=== PATIENT | male | born 1945 | race Caucasian/White ===

== ENCOUNTER → 2023-07-29 12:29 | Outpatient (REF) | payer MEDICARE, OTHER, SELFPAY | LOC: RAD 12:29 | PROVIDERS: ATTENDING PHYSICIAN Internal Medicine Gastroenterology; FAMILY PHYSICIAN Family Medicine | DX: K22.2 Esophageal obstruction (principal) | CPT/HCPCS: 71046; 72052; 74018 ==

== ENCOUNTER 2023-08-11 15:20 | Inpatient (IN) | payer MEDICARE, OTHER, SELFPAY ==
[2023-08-11] VITALS (8 sets, daily range): BP systolic 122–177; BP diastolic 56–76; BMI 21.6; BMI 20.6
[2023-08-11 12:20] LABS: % Basophils 0.7 % (0-2); % Eosinophils 1.7 % (0-6); % Immature Granulocytes 0.2 % (0-0.5); % Lymphocytes 9.9 % (20.5-51.1); % Monocytes 11.3 % (1.7-9.3); % Neutrophils 76.2 % (42.2-75.2); Absolute Eosinophils 0.1 10^3/uL (0-0.7); Absolute Lymphocytes 0.6 10^3/uL (1.2-3.4); Absolute Monocytes 0.7 10^3/uL (0.1-0.6); Absolute Neutrophils 4.5 10^3/uL (1.4-6.5); Hematocrit 35.5 % (39.0-52.0); Hemoglobin 12.2 g/dL (13.0-18.0); Mean Corp Hgb Conc. 34.4 g/dL (33.0-37.0); Mean Corpuscular Hgb 29.8 pg (27.0-31.0); Mean Corpuscular Volume 86.8 fL (80.0-94.0); Mean Platelet Volume 11.2 fL (7.4-10.4); Nucleated Red Blood Cells % 0 % (-); Platelet Count 111 10^3/uL (130-400); Red Blood Cell Count 4.09 10^6/uL (4.70-6.10); Red Cell Dist. Width 13.6 % (11.5-14.5); White Blood Cell Count 5.9 10^3/uL (4.8-10.8)
--- NOTE | 2023-08-11 12:20 | ED.GENMED ---
History of Present Illness
General
Chief Complaint: Weakness
Source: patient and family
Time Seen by Provider: 08/11/23 11:38
Travel History
Have you had any contact with someone who has COVID-19?: No
Do you have any symptoms of coronavirus? Fever > 100 degrees, chills, cough, shortness of breath, sore throat, loss of taste or smell, muscle aches, or headache?: No
History of Present Illness
History of Present Illness:
This is 77-year-old male with a history of esophageal cancer with esophagectomy and subsequent stenting who presents with difficulty swallowing. The patient states that he has had progressive difficulty trying to swallow food. He has been trying
to use his J-tube. Denies any difficulty with his saliva. Patient is to have an endoscopy by Dr. Baig tomorrow. He was advised to come to the emergency department.
Past History
Past History
ED Past Medical History: Cancer (Esophageal cancer), HTN, Hypercholesterolemia and Valvular disease (Aortic stenosis)
Phy Exam
Physical Exam
Physical Exam:
CONSTITUTIONAL Patient alert and oriented to person, place and time. Well-appearing. Vital signs reviewed. Mild hoarseness to the voice
HEAD atraumatic, normocephalic.
EYES eyelids normal to inspection, Extraocular muscles intact, Conjunctiva normal, Sclera normal.
NECK normal range of motion, Trachea midline, no jugular venous distention.
RESPIRATORY CHEST No respiratory distress noted, Chest expansion equal, Bilateral breath sounds clear.
CARDIOVASCULAR regular rate and rhythm, subtle systolic ejection murmur
ABDOMEN abdomen nontender, Bowel sounds normal. No distention. Left upper quadrant G-tube noted
BACK normal inspection, no obvious deformities
UPPER EXTREMITY range of motion normal, Motor strength normal, no cyanosis, no edema.
LOWER EXTREMITY range of motion normal, Motor strength normal, no cyanosis, no edema.
NEURO Speech normal, No focal motor deficits, Kajal coma scale 15, Memory normal, Cranial Nerves intact to screening exam.
SKIN skin warm, dry, and normal in color.
\\
Course
Orders/Labs/Results
Orders:
Orders
08/11/23 12:05
Complete Blood Count/With Diff Urgent
Comprehensive Metabolic Panel Urgent
Abnormal Lab Results
08/11/23
12:05
RBC 4.09 L 10^6/uL
(4.70-6.10)
Hgb 12.2 L g/dL
(13.0-18.0)
Hct 35.5 L %
(39.0-52.0)
Plt Count 111 L 10^3/uL
(130-400)
MPV 11.2 H fL
(7.4-10.4)
Absolute Lymphs (auto) 0.6 L 10^3/uL
(1.2-3.4)
Absolute Monos (auto) 0.7 H 10^3/uL
(0.1-0.6)
Neutrophils % 76.2 H %
(42.2-75.2)
Lymphocytes % 9.9 L %
(20.5-51.1)
Monocytes % 11.3 H %
(1.7-9.3)
Sodium 134 L mmol/L
(135-145)
Creatinine 0.5 L mg/dL
(0.7-1.3)
Glucose 113 H mg/dl
(70-99)
Calcium 8.2 L mg/dl
(8.4-10.2)
Total Bilirubin 2.0 H mg/dl
(0.2-1.3)
Total Protein 5.7 L g/dl
(6.3-8.2)
Albumin 3.0 L g/dl
(3.5-5.0)
08/11/23 12:05
08/11/23 12:05
Vital Signs
Initial and Last Documented VS:
Initial Vital Signs
Temp Pulse Resp BP Pulse Ox
97.7 F 67 16 122/72 98
08/11/23 10:59 08/11/23 10:59 08/11/23 10:59 08/11/23 10:59 08/11/23 10:59
Last Documented Vital Signs
Temp Pulse Resp BP Pulse Ox
97.7 F 67 16 122/72 98
08/11/23 10:59 08/11/23 10:59 08/11/23 10:59 08/11/23 10:59 08/11/23 10:59
MDM/Problems Addressed
MDM/Problems Addressed:
Esophageal stricture, dysphagia
*Pulse Oximetry
Patient hypoxic: no
*Critical Care Note
Total Time (30-74mins, 75-104mins- exclusive of procedures): Not Applicable
Data Reviewed
Source: patient and family
Further Testing Considered But Not Given:
Consider CT but patient to have endoscopy tomorrow
Patient Management
Discussion with other providers: Hospitalist and Auto Glass Installer (Case discussed with gastroenterology)
Escalation/DeEscalation of care consider admission/obs:
Case discussed with gastroenterology. Patient to have endoscopy tomorrow to evaluate stent. Admit. Stable
ED Attending Note
-
Portions of this chart may have been created with voice recognition software.� Occasional wrong word or��sound alike� substitutions may have occurred due to the inherent limitations of voice recognition software.
Discharge Plan
Departure
Patient Disposition: Admit
Date of Disposition: 08/11/23
Time of Disposition: 12:21
Admit to: Med/Surg
Presentation/result/management discussed w/ accepting MD/DO: Hospitalist
Discharge Problem:
Dysphagia
Prescriptions:
No Action
cholecalciferol (vitamin D3) 125 MCG tablet,disintegrating
5,000 unit PO DAILY
atorvastatin 80 mg Tablet
80 mg feeding tube QPM Qty: 0 0RF
carvedilol 12.5 mg Tablet
25 mg feeding tube BID Qty: 60 0RF
lansoprazole [Prevacid SoluTab] 30 mg tablet,disintegrat, delay rel
30 mg feeding tube DAILY Qty: 60 0RF
potassium chloride 20 mEq/15 mL liquid
20 meq feeding tube DAILY Qty: 450 0RF
aspirin 81 mg tablet,chewable
81 mg feeding tube DAILY
Xarelto 20 mg tablet
20 mg G-tube DAILY
Hold Instructions: Resume on 03/20/23.
Cholestyramine Powder
4.5 g feeding tube DAILY
Rx Instructions:
for diarrhea
Referrals:
Jackie Trinh MD [Family Provider] -
Interventions
Interventions:
*General Assessment Last Done: 08/11/23 12:09
ED- Fall Risk Assessment Last Done: 08/11/23 11:58
*ED COVID-19 Vaccine History Last Done: 08/11/23 10:59
ED- Cardiac Assessment Last Done: 08/11/23 12:13
ED- Neurological Assessment Last Done: 08/11/23 11:58
ED- Pulmonary Assessment Last Done: 08/11/23 11:58
[2023-08-11 12:33] LABS: ALT (SGPT) 16 U/L (0-50); AST (SGOT) 25 U/L (17-59); Alkaline Phosphatase 104 U/L (38-126); Blood Urea Nitrogen 10 mg/dl (9-20); Calcium 8.2 mg/dl (8.4-10.2); Carbon Dioxide 28 mmol/L (22-30); Chloride 102 mmol/L (98-107); Estimated Creatinine Clearance 110 ml/min; Glucose 113 mg/dl (70-99); Potassium 3.5 mmol/L (3.5-5.1); Sodium 134 mmol/L (135-145); Total Protein 5.7 g/dl (6.3-8.2); eGFR > 60.00
--- NOTE | 2023-08-11 13:49 | CON.GI ---
Consultation
-
Date/Time Consultation Requested: 08/11/23 12:19pm
Date/Time Consultation Performed: 08/11/23 1:50pm
Requesting Provider: Aj Alexis
Performing Provider: Timothy Mcdermott
Reason for Consultation: Dysphagia
Medical History
Chief Complaint / HPI
Chief Complaint: Dysphagia
History of Present Illness:
Patient is a 77-year-old male presenting with dysphagia. He was diagnosed with esophageal cancer last year and underwent chemoradiation followed by surgical resection in November. His postop course was complicated by a leak and development of
stricture which has been dilated by Dr. Baig. Most recently he placed an Axios stent during his last EGD on June 11, 2023. He did well initially for the first month but then over the last week he has had difficulty swallowing food. Even eating
Cheerios and vegetable soup will come back up. At this point he is only tolerating water. He was recommended to come in to have an assessment of the stent and possible removal. He currently has a J-tube which he uses to supplement his nutrition.
He typically takes 2 cans of Jevity in addition to oral intake and Ensure. He has lost about 7 pounds over the last couple weeks. He has had hoarseness over the last 3 weeks. He denies any pain. He had x-rays checked that showed adequate
position of the stent.
Past Medical History
Past Medical History: HTN, Valvular Disease (Aortic stenosis) and Other (TIA, Esophageal adenoCA s/p chemo/XRT and resection)
Past Surgical History: Cardiac (CABG), Orthopedic (R THR) and Other (Esophageal CA resection)
Social History
Tobacco: Non-Smoker
Family History
Family History: Reviewed & Not Pertinent
Allergies / Home Medications
Allergy/AdvReac Type Severity Reaction Status Date / Time
No Known Allergies Allergy Verified 08/11/23 11:03
Medication Instructions Recorded
cholecalciferol (vitamin D3) 125 5,000 unit PO DAILY Supplement 12/15/20
mcg (5,000 unit) disintegrating
tablet
atorvastatin 80 mg tablet 80 mg feeding tube QPM #0 tabs 12/20/22
carvedilol 12.5 mg tablet 25 mg feeding tube BID #60 tabs 12/20/22
lansoprazole 30 mg delayed 30 mg feeding tube DAILY #60 tabs 12/20/22
release,disintegrating tablet
(Prevacid SoluTab)
potassium chloride 20 mEq/15 mL 20 meq (15 mL) feeding tube DAILY 12/20/22
oral liquid #450 mL
aspirin 81 mg chewable tablet 81 mg feeding tube DAILY 03/12/23
rivaroxaban 20 mg tablet (Xarelto) 20 mg G-tube DAILY 03/12/23
Cholestyramine Powder 4.5 g feeding tube DAILY 03/18/23
Review of Systems
-
All other systems: A 12 pt ROS was Negative except as stated above in HPI
Vital Signs
Temp Pulse Resp BP Pulse Ox
97.7 F 53 14 135/68 99
08/11/23 10:59 08/11/23 13:00 08/11/23 13:00 08/11/23 13:00 08/11/23 13:00
Physical Exam
Exam
General: No Apparent Distress
HEENT: Normocephalic and Atraumatic
Respiratory: Non Labored Respirations
GI: Soft, Non Tender and Non Distended
Results
WBC 5.9 10^3/uL (4.8-10.8) 08/11/23 12:05
Hgb 12.2 g/dL (13.0-18.0) L 08/11/23 12:05
Hct 35.5 % (39.0-52.0) L 08/11/23 12:05
MCV 86.8 fL (80.0-94.0) 08/11/23 12:05
Plt Count 111 10^3/uL (130-400) L 08/11/23 12:05
Absolute Neuts (auto) 4.5 10^3/uL (1.4-6.5) 08/11/23 12:05
Sodium 134 mmol/L (135-145) L 08/11/23 12:05
Potassium 3.5 mmol/L (3.5-5.1) 08/11/23 12:05
Chloride 102 mmol/L (98-107) 08/11/23 12:05
Carbon Dioxide 28 mmol/L (22-30) 08/11/23 12:05
BUN 10 mg/dl (9-20) 08/11/23 12:05
Creatinine 0.5 mg/dL (0.7-1.3) L 08/11/23 12:05
Calcium 8.2 mg/dl (8.4-10.2) L 08/11/23 12:05
Total Bilirubin 2.0 mg/dl (0.2-1.3) H 08/11/23 12:05
AST 25 U/L (17-59) 08/11/23 12:05
ALT 16 U/L (0-50) 08/11/23 12:05
Alkaline Phosphatase 104 U/L (38-126) 08/11/23 12:05
Diagnostic Image Results:
Prior GI Procedures:
EGD:
Colonoscopy:
Assessment / Plan
-
Summary: 77yo male presents with dysphagia. Dx'd esophageal adenoCA last year and underwent chemo/XRT followed by resection in November. Post op course complicated by leak and subsequent stricture requiring repeated dilations wtih Dr Baig. Last EGD
06/11/23, Axios stent placed. No problems after procedure until last week- unable to keep down food including Cheerios and vegetable soup. 07/29/23 xrays showed stent to be in adequate position. Now only tolerating water. He uses J tube to
supplement his nutrition, usually 2 cans Jevity via tube with oral intake as tolerated and ensure PO. Lost 7# over last couple weeks.
Impression:
Dysphagia
Esophageal CA s/p chemo/XRT and resection in November 2022
Post op leak and stricture requiring repeated dilation and Axios stent placed 06/11/23
CAD/CABG
Recommendations:
Plan EGD with Dr Baig tomorrow to assess stent and possibly remove
Can use J tube for nutrition while awaiting return of swallowing function.
NPO p MN
-
-
Thank you for consultation and allowing me to participate in the patient's care. Please call the retail sales professional GI physician during the after hours with any questions or concerns.
--- NOTE | 2023-08-11 14:26 | HPS.HSE ---
Family Physician
<EMILIO Liang - Last Filed: 08/11/23 14:59>
-
Family Physician: Jackie Trinh
Chief Complaint
<EMILIO Liang - Last Filed: 08/11/23 14:59>
-
dysphagia
History of Present Illness
77-year-old male with known history of dysphagia secondary to esophageal stenosis prior esophageal cancer 2022 with chemoradiation followed by surgical resection November 2022. He had a stent placed June 11, 2023 was doing well over the past 2
months he had a J-tube placed in November of last year. He reports he was able to eat up until 1 week ago when he started coughing up his food. He reports increased hoarseness over the past 3 weeks with weight loss of 7 pounds despite J-tube feeds
with Jevity 1.5 Anthony twice daily he was sent in by GI for EGD with possible esophageal stenting in the a.m. He has held his Xarelto for the last 2 days with last dose being 08/09/2023 in anticipation of esophageal stent. He denies fever, chills,
chest pain, palpitations, shortness of breath, cough, abdominal pain, nausea, vomiting, diarrhea, urinary symptoms. He has past medical history of HTN, aortic stenosis, TIA, esophageal adenocarcinoma status post chemo XRT and resection November 2022,
CABG, RBBB, paroxysmal A-fib, HLD
Medical History
<EMILIO Liang - Last Filed: 08/11/23 14:59>
Past Medical History
Past Medical History: Reports Other ( esophageal adenocarcinoma status post neoadjuvant chemoradiotherapy, severe aortic stenosis, paroxysmal atrial fibrillation on Xarelto, CAD, hypertension, hyperlipidemia, prediabetes, obesity, TIA in 2008)
Past Surgical History: Reports Other (Esophageal resection secondary to adenocarcinoma November 2022, J-tube November 2022)
Social History
Tobacco: Non-smoker
Alcohol: None
Drug: None
Personal:
Living: With Family ( )
Employment: Retired
Family History
Family History: Not pertinent
Allergies / Home Medications
Allergies reflects when Allergies were last updated in [employer].
Home Medications with original date entered in [employer]
Allergy/Medication List:
Allergies
Allergy/AdvReac Type Severity Reaction Status Date / Time
No Known Allergies Allergy Verified 08/11/23 11:03
Home Medications
carvedilol 12.5 mg tablet 25 mg feeding tube BID #60 tabs 12/20/22
lansoprazole 30 mg delayed release,disintegrating tablet (Prevacid SoluTab) 30 mg feeding tube DAILY #60 tabs 12/20/22
aspirin 81 mg tablet,delayed release 81 mg feeding tube DAILY 08/11/23
atorvastatin 80 mg tablet 80 mg feeding tube HS 08/11/23
cholecalciferol (vitamin D3) 5,000 units G-tube DAILY 08/11/23
cholestyramine (with sugar) 4.5 g G-tube DAILY@1400 08/11/23
potassium chloride 20 mEq oral packet 20 meq feeding tube DAILY 08/11/23
rivaroxaban 20 mg tablet (Xarelto) 20 mg G-tube .SEE BELOW 08/11/23
Review of Systems
<EMILIO Liang - Last Filed: 08/11/23 14:59>
-
History Source: Patient and Family
A 12 point ROS was completed and negative except as noted: Yes
Constitutional: Denies Fever
EENT: Reports Other (Hoarse voice)
Respiratory: Reports Cough; Denies Trouble Breathing
Cardiac: Denies Chest Pain, Diaphoresis, Palpitations or Syncope
Abdomen/GI: Reports Vomiting; Denies Abdominal Pain, Nausea, Diarrhea, Constipated or Bloody Stools
: Denies Dysuria, Frequency, Flank Pain, Incontinence or Difficulty Voiding
Musculoskeletal: Denies Joint Pain or Edema
Skin: Denies Itching or Rash
Neurological: Denies Dizzy, Headache or Weakness
Endocrine: Reports No Symptoms
Hematologic/Lymphatic: Reports No Symptoms
Psych: Reports Calm
Physical Exam
<EMILIO Liang - Last Filed: 08/11/23 14:59>
Vital Signs
Vital Signs
Temp Pulse Resp BP Pulse Ox
97.7 F 53 14 135/68 99
08/11/23 10:59 08/11/23 13:00 08/11/23 13:00 08/11/23 13:00 08/11/23 13:00
Physical Exam
General: Comfortable and Conversant
HEENT: NormoCephalic, Anicteric, [place] Conjunctivae and No Ptosis
Respiratory: Clear; No Wheezes, Rales or Rhonchi
Cardiac: S1/S2, Regular Rhythm and Murmur (2/6 systolic); No Rub, Gallop or Peripheral Edema
GI: Soft, Non Tender, Non Distended and Normal Bowel Sounds
Rectal: Deferred by Provider
Genito-urinary: Deferred by me
Musculoskeletal: No Clubbing, No Cyanosis and No Edema
Skin: Warm and Dry; No Rash
Neuro: AO x 3 (Chronic hoarse voice), Nonfocal/grossly intact and No Sensory Deficits; No Slurred Speech, Facial Droop or Tremors
Psych: Calm
Laboratory Results
<EMILIO Liang - Last Filed: 08/11/23 14:59>
-
08/11/23 12:05
08/11/23 12:05
Laboratory Results
Total Bilirubin 2.0 mg/dl (0.2-1.3) H 08/11/23 12:05
AST 25 U/L (17-59) 08/11/23 12:05
ALT 16 U/L (0-50) 08/11/23 12:05
Alkaline Phosphatase 104 U/L (38-126) 08/11/23 12:05
Data Reviewed
<EMILIO Liang - Last Filed: 08/11/23 14:59>
-
Lab Data: Labs Reviewed by me
Impression/Plan
<EMILIO Liang - Last Filed: 08/11/23 14:59>
-
Impression/plan:
Admit to MedSurg
#Acute on chronic dysphagia secondary to esophageal stenosis
#Adenocarcinoma esophageal with chemo and XRT November 2022
# s/p J-tube
-Plan for EGD in a.m.
-N.p.o. after midnight
-Uses 2 cans of Jevity daily
-Consult dietary
EGD 06/11/2023: Benign-appearing esophageal stenosis with stent placement
#Paroxysmal A-fib
-Patient held Xarelto since 08/09/2023 in anticipation of EGD tomorrow 08/12/2023
-Will need to resume Xarelto once okay by GI
#HTN-benign
135/63
-Continue carvedilol 25 mg twice daily via G-tube
#TIA
-Continue statin 80 mg via G-tube at bedtime, carvedilol 25 mg twice daily via G-tube,, aspirin 81 mg daily via G-tube
#GERD
-Continue Prevacid SoluTab 30 mg via G-tube
#RBBB
#CAD/CABG
-Continue beta-brennan, statin, aspirin
#HLD
-Continue statin via G-tube
#Aortic stenosis
DVT prophylaxis
Xarelto has been held since 08/09/2023 due to procedure tomorrow 08/12/2023
SCDs
Full code
<Rodger Reyes MD - Last Filed: 08/11/23 15:12>
-
Impression/plan:
Patient seen and examined with CORPORATE TECHNICAL RECRUITER. Agree with findings on history and physical exam. I agree with the assesment below.
He is a 77 y.o male with past medical hx of esophageal ca s/p resection and reanastomosis with chemo and XRT November 2022 who developed benign appearing esophageal stenosis soon after s/p stenting in May 2023 who has now developed worsening
dysphagia. Reports regurgitation of all but thin liquids. Denies any chest pain or tightness. No vomiting. Denies globus sensation. Does tolerate feeds with Jevity via J-tube. Saw GI recently with recommendation for repeat EGD for which he
came. Labs are unremarkable.
Admit to MedSurg
#Acute on chronic dysphagia secondary to esophageal stenosis
#Adenocarcinoma esophageal with chemo and XRT November 2022
# s/p J-tube
-Plan for EGD in a.m.
-N.p.o. after midnight
-Uses 2 cans of Jevity daily
-Consult dietary
EGD 06/11/2023: Benign-appearing esophageal stenosis with stent placement
#Paroxysmal A-fib
-Patient held Xarelto since 08/09/2023 in anticipation of EGD tomorrow 08/12/2023
-Will need to resume Xarelto once okay by GI
#HTN-benign
135/63
-Continue carvedilol 25 mg twice daily via G-tube
#TIA
-Continue statin 80 mg via G-tube at bedtime, carvedilol 25 mg twice daily via G-tube,, aspirin 81 mg daily via G-tube
#GERD
-Continue Prevacid SoluTab 30 mg via G-tube
#RBBB
#CAD/CABG
-Continue beta-brennan, statin, aspirin
#HLD
-Continue statin via G-tube
#Aortic stenosis
DVT prophylaxis
Xarelto has been held since 08/09/2023 due to procedure tomorrow 08/12/2023
SCDs
Full code
[2023-08-11] MEDS: LIPITOR 80 MG TUBE (21:14)
[2023-08-11] MEDS: COREG TUBE (21:18)
[2023-08-11] MEDS: NSS 1000 IV (23:29)
[2023-08-12] VITALS (7 sets, daily range): BP systolic 124–169; BP diastolic 59–73; BMI 20.9
[2023-08-12] MEDS: COREG TUBE (08:40)
--- NOTE | 2023-08-12 08:54 | W.PN.HOSP.TC ---
Today's Communication/Plan
-
Presume discharge later today after EGD
Resumption of Xarelto then or as per GI within 24 hours
Already knows dietary does restrictions from prior
Assessment / Plan
Assessment / Plan
77-year-old male with known history of dysphagia secondary to esophageal stenosis prior esophageal cancer 2022 with chemoradiation followed by surgical resection November 2022.� He had a stent placed June 11, 2023 was doing well over the past 2
months he had a J-tube placed in November of last year.� He reports he was able to eat up until 1 week ago when he started coughing up his food.� He reports increased hoarseness over the past 3 weeks with weight loss of 7 pounds despite J-tube feeds
with Jevity 1.5 Anthony twice daily he was sent in by GI for EGD with possible esophageal stenting in the a.m.� He has held his Xarelto for the last 2 days with last dose being 08/09/2023 in anticipation of esophageal stent.� He denies fever, chills,
chest pain, palpitations, shortness of breath, cough, abdominal pain, nausea, vomiting, diarrhea, urinary symptoms.� He has past medical history of HTN, aortic stenosis, TIA, esophageal adenocarcinoma status post chemo XRT and resection November 2022,
CABG, RBBB, paroxysmal A-fib, HLD
Admit to MedSurg
#Acute on chronic dysphagia secondary to esophageal stenosis
#Adenocarcinoma esophageal with chemo and XRT November 2022
# s/p J-tube
-Plan for EGD this p.m.
-N.p.o. after midnight
-Uses 2 cans of Jevity daily
-Consult dietary
�� � EGD 06/11/2023: Benign-appearing esophageal stenosis with stent placement
#Paroxysmal A-fib
-Patient held Xarelto since 08/09/2023 in anticipation of EGD tomorrow 08/12/2023
-Will need to resume Xarelto once okay by GI
#HTN-benign
135/63
-Continue carvedilol 25 mg twice daily via G-tube
#TIA
-Continue statin 80 mg via G-tube at bedtime, carvedilol 25 mg twice daily via G-tube,, aspirin 81 mg daily via G-tube
#GERD
-Continue Prevacid SoluTab 30 mg via G-tube
#RBBB
#CAD/CABG
-Continue beta-brennan, statin, aspirin
#HLD
-Continue statin via G-tube
#Aortic stenosis
DVT prophylaxis
Xarelto has been held since 08/09/2023 due to procedure tomorrow 08/12/2023
SCDs
Full code
Anticipated Discharge: Today (Presumably can be discharged after EGD and removal of stent/dilatation?)
Subjective/Interval History
-
Date of Service: August 12, 2023
Doing okay overnight has been n.p.o. since midnight.
Objective Data
-
Labs:
Laboratory Results
08/12/23
08:51
WBC Pending
Hgb Pending
Hct Pending
Plt Count Pending
Sodium Pending
Potassium Pending
Chloride Pending
Carbon Dioxide Pending
BUN Pending
Creatinine Pending
Glucose Pending
Calcium Pending
Vital Signs:
Vital Signs
Temp Pulse Resp BP Pulse Ox
97.6 F 56 18 141/68 95
08/12/23 07:30 08/12/23 07:30 08/12/23 07:30 08/12/23 07:30 08/12/23 07:30
I&O
08/11/23 08/12/23 08/13/23
06:59 06:59 06:59
Intake Total 800 / 800
Balance 800 / 800
Review of Systems
-
History Source: Patient
All other systems: Reviewed and negative
Constitutional: Reports Weight Loss (7 pounds last several month)
EENT: Reports No Symptoms Reported
Respiratory: Reports No Symptoms
Cardiac: Reports No Symptoms
Abdomen/GI: Reports No Symptoms
Physical Exam
-
General: No Apparent Distress and Appears Chronically Ill
HEENT: Normocephalic
Respiratory: Clear to Auscultation
Cardiac: Regular Rhythm
GI: Soft, Nontender and Nondistended
Skin: Warm
Neuro: Awake, Alert, Oriented, AO x 3 and No Motor Deficits
Data Reviewed
-
Total Time Spent with Patient (in minutes): 45
Labs: Labs Reviewed by me
[2023-08-12 09:31] LABS: % Basophils 0.6 % (0-2); % Eosinophils 2.5 % (0-6); % Immature Granulocytes 0.4 % (0-0.5); % Lymphocytes 10.6 % (20.5-51.1); % Monocytes 12.9 % (1.7-9.3); Absolute Eosinophils 0.1 10^3/uL (0-0.7); Absolute Lymphocytes 0.6 10^3/uL (1.2-3.4); Absolute Monocytes 0.7 10^3/uL (0.1-0.6); Absolute Neutrophils 3.8 10^3/uL (1.4-6.5); Hematocrit 34.9 % (39.0-52.0); Hemoglobin 11.9 g/dL (13.0-18.0); Mean Corp Hgb Conc. 34.1 g/dL (33.0-37.0); Mean Corpuscular Volume 87.9 fL (80.0-94.0); Mean Platelet Volume 11.5 fL (7.4-10.4); Nucleated Red Blood Cells % 0 % (-); Platelet Count 113 10^3/uL (130-400); Red Blood Cell Count 3.97 10^6/uL (4.70-6.10); Red Cell Dist. Width 13.6 % (11.5-14.5); White Blood Cell Count 5.2 10^3/uL (4.8-10.8)
[2023-08-12 09:59] LABS: Blood Urea Nitrogen 7 mg/dl (9-20); Calcium 8.4 mg/dl (8.4-10.2); Carbon Dioxide 30 mmol/L (22-30); Chloride 100 mmol/L (98-107); Estimated Creatinine Clearance 106 ml/min; Glucose 97 mg/dl (70-99); Potassium 3.3 mmol/L (3.5-5.1); Sodium 135 mmol/L (135-145); eGFR > 60.00
--- NOTE | 2023-08-12 10:39 | CM ---
Patient seen beside, initial assessment completed. Patient reports he lives with his in a town house with a first floor set up. Patient reports having VN in the past after surgery he had in November, reports cardiac rehab in the past. Patient
confirms PCP Jackie Trinh, [facility] [place]. CM offered VN to patient, patient declines at this time. CM will continue to follow for discharge planning needs.
Plan; home no needs anticipated.
--- NOTE | 2023-08-12 15:00 | PN.CDI ---
CDI
- -
CDI:
Physician Documentation Request
Admit Date: 08/11/23 15:20
Dear Doctor Adan,
Please review the following and provide your response in the progress notes.
Clinical Indicators:
Roll Wrapper, 08/11
#Per additional discussion with pt, he feels his usual weight is ~200 lbs from last November (2022). #Current weight 158 lbs 6.4 oz on 08-12-23,
#...reflecting a loss of 42 lbs (21% wt change, ~7.5 months)-significant.
#During visit RD able to observe mild depression of temples, mild orbital,
#...moderate protrusion of clavicle, mild ribs, moderate fat/muscle loss on quads, calves. #Due to wt loss and observations,
#...pt meeting criteria for moderate protein/calorie malnutrition
#...(ASPEN/AND guidelines, chronic illness).
Based on the information above and your clinical assessment, please clarify which of the following most accurately represents the patient's nutritional status?
Moderate protein calorie malnutrition of chronic illness
Other (please specify)
Sieper Criteria (ACP Hospitalist 2017)
2 or more criteria must be present for either
non severe or severe malnutrition
Note that the criteria differs related to the
presence of an acute or chronic illness
Chronic Illness
Energy Intake Non Severe: <75% for >1 month
Severe: <75% for >1 month
Weight Loss Non Severe: 5% over 1 month
7.5% over 3 months
10% over 6 months
20% over 1 year
Severe: >5% over 1 month
>7.5% over 3 months
>10% over 6 months
>20% over 1 year
Body Fat Non Severe: Mild Loss
Severe: Severe Loss
Muscle Mass Non Severe: Mild Loss
Severe: Severe Loss
Use of terms such as suspected, likely, concern for, or probable (associated with a specific diagnosis that is being evaluated, monitored, or treated as if it exists) are acceptable and can be coded in the inpatient setting, when documented at the
time of discharge.
Thank you,
Yumiko Gee RN BSN CCDS
CDI Specialist
please contact via tiger text
Please use your independent medical judgment in providing your response.
--- NOTE | 2023-08-12 18:34 | PTCARENOTE ---
Received pt from PACU after EGD. Pt ambulated with assistance from stretcher to bed. No crepitus noted in pt's LT neck. Will continue to monitor.
[2023-08-12] MEDS: VITAMIN D3 (cholecalciferol) 125 MCG TUBE (18:36)
[2023-08-12] MEDS: LOW STRENGTH ASPIRIN 81 MG TUBE (18:36)
[2023-08-12] MEDS: PREVACID 30 MG TUBE (18:36)
[2023-08-12] MEDS: NSS 1000 IV (18:40)
[2023-08-12] MEDS: ZOSYN 50 IV (18:51)
[2023-08-12] MEDS: COREG 25 MG TUBE (20:35)
[2023-08-12] MEDS: LIPITOR 80 MG TUBE (21:03)
[2023-08-13] MEDS: ZOSYN 50 IV ×3 (00:57→12:13)
[2023-08-13 07:37] VITALS: BP 134/61
[2023-08-13] MEDS: PREVACID 30 MG TUBE (08:28)
[2023-08-13] MEDS: COREG 25 MG TUBE (08:28)
[2023-08-13] MEDS: LOW STRENGTH ASPIRIN 81 MG TUBE (08:28)
[2023-08-13] MEDS: VITAMIN D3 (cholecalciferol) 125 MCG TUBE (08:29)
--- NOTE | 2023-08-13 09:46 | W.PN.HOSP.TC ---
Addendum entered and electronically signed by Kole Arellano MD 08/14/23 15:07:
Moderate protein calorie malnutrition from chronic illness
Original Note:
Today's Communication/Plan
-
Will defer graduation to oral feeds to gastroenterology today
Although CT showed evidence of pneumonic infiltrate no signs systemically and remains afebrile without cough and/or fever or leukocytosis
Resumption of Xarelto through J-tube until taking orals
Assessment / Plan
Assessment / Plan
77-year-old male with known history of dysphagia secondary to esophageal stenosis prior esophageal cancer 2022 with chemoradiation followed by surgical resection November 2022.� He had a stent placed June 11, 2023 was doing well over the past 2
months he had a J-tube placed in November of last year.� He reports he was able to eat up until 1 week ago when he started coughing up his food.� He reports increased hoarseness over the past 3 weeks with weight loss of 7 pounds despite J-tube feeds
with Jevity 1.5 Anthony twice daily he was sent in by GI for EGD with possible esophageal stenting in the a.m.� He has held his Xarelto for the last 2 days with last dose being 08/09/2023 in anticipation of esophageal stent.� He denies fever, chills,
chest pain, palpitations, shortness of breath, cough, abdominal pain, nausea, vomiting, diarrhea, urinary symptoms.� He has past medical history of HTN, aortic stenosis, TIA, esophageal adenocarcinoma status post chemo XRT and resection November 2022,
CABG, RBBB, paroxysmal A-fib, HLD
Admit to MedSurg
#Acute on chronic dysphagia secondary to esophageal stenosis
#Adenocarcinoma esophageal with chemo and XRT November 2022
# s/p J-tube
-Had EGD yesterday/underwent dilatation of stricture that again appeared to be benign in appearance with attempt at retrieving stent that migrated distally was lodged causing obstruction difficulty in removing and questionable possible esophageal
perforation/underwent CT imaging of the chest and neck:. 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
Moderate surrounding inflammation in the mediastinum. 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 Recurrent malignancy is an alternative diagnostic possibility.
3. � No CT evidence for extraluminal air or fluid in the mediastinum to suggest an acute esophageal perforation.
4. � Mild mediastinal lymphadenopathy.
5. � MODERATE LEFT LOWER LOBE PNEUMONIA (probably aspiration pneumonia) with an adjacent small parapneumonic pleural effusion./Patient without leukocytosis without respiratory issues cough or fever
6. � Mild airway aspiration in the right lower lobe and minimal right pleural effusion.
7. � Previous midline sternotomy, CABG surgery, and aortic valve replacement.
-N.p.o. after midnight
-Uses 2 cans of Jevity daily/received Jevity infusion overnight through J-tube
-Consult dietary
�� � EGD 06/11/2023: Benign-appearing esophageal stenosis with stent placement
#Paroxysmal A-fib
-Patient held Xarelto since 08/09/2023 in anticipation of EGD tomorrow 08/12/2023
-Will need to resume Xarelto once okay by GI
#HTN-benign
135/63
-Continue carvedilol 25 mg twice daily via G-tube
#TIA
-Continue statin 80 mg via G-tube at bedtime, carvedilol 25 mg twice daily via G-tube,, aspirin 81 mg daily via G-tube
#GERD
-Continue Prevacid SoluTab 30 mg via G-tube
#RBBB
#CAD/CABG
-Continue beta-brennan, statin, aspirin
#HLD
-Continue statin via G-tube
#Aortic stenosis
DVT prophylaxis
Xarelto has been held since 08/09/2023 due to procedure tomorrow 08/12/2023
SCDs
Full code
Anticipated Discharge: Within 24 hours
Subjective/Interval History
-
Date of Service: August 13, 2023
Unremarkable night/had JVD and feels through his J-tube continuously. No choking episodes or cough and states that his speech is clear and has been in months
Objective Data
-
Vital Signs:
Vital Signs
Temp Pulse Resp BP Pulse Ox
97.5 F 60 18 134/61 98
08/13/23 07:37 08/13/23 07:37 08/13/23 07:37 08/13/23 07:37 08/13/23 07:37
I&O
08/12/23 08/13/23 08/14/23
06:59 06:59 06:59
Intake Total 800 / 800 1160 / 1160
Balance 800 / 800 1160 / 1160
Review of Systems
-
History Source: Patient
Constitutional: Reports No Symptoms
EENT: Reports No Symptoms Reported
Cardiac: Reports No Symptoms
Genitourinary: Reports No Symptoms
Musculoskeletal: Reports No Symptoms
Physical Exam
-
General: Well Developed
HEENT: Normocephalic
Respiratory: Clear to Auscultation
Cardiac: Regular Rhythm and Other (No crepitus over anterior chest wall or neck)
GI: Soft, Nontender and Nondistended
Neuro: Awake, Alert and Oriented
Psych: Calm
Data Reviewed
-
CT Scan: Discussed with Physician (2. SEVERE GASTROESOPHAGEAL ANASTOMOTIC STRICTURE in the superior mediastinum with severe irregular circumferential wall thickening of the esophagus and stomach at the site of the stricture. Moderate surrounding
inflammation in the mediastinum. 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 R)
Labs: Labs Reviewed by me
--- NOTE | 2023-08-13 11:40 | W.PN.GI.CBS2 ---
Today's Communication / Plan
-
Full liquid diet
Assessment / Plan
-
Summary: 77yo male presents with dysphagia. Dx'd esophageal adenoCA last year and underwent chemo/XRT followed by resection in November. Post op course complicated by leak and subsequent stricture requiring repeated dilations wtih Dr Baig. Last EGD
06/11/23, Axios stent placed. No problems after procedure until last week- unable to keep down food including Cheerios and vegetable soup. 07/29/23 xrays showed stent to be in adequate position. Now only tolerating water. He uses J tube to
supplement his nutrition, usually 2 cans Jevity via tube with oral intake as tolerated and ensure PO. Lost 7# over last couple weeks.
EGD 08/12/23 (Dr. Baig)
- Benign-appearing esophageal stenosis. Dilated.
�� � � � � � � � � � � - Pre-existing Axios stent which had migrated distally
�� � � � � � � � � � � from the stricture impacted/wedged in the esophagus,
�� � � � � � � � � � � removed with difficulty. Crepitus was palpated in the
�� � � � � � � � � � � patient's neck concerning for perforation, but this
�� � � � � � � � � � � resolved shortly after. Patient was discussed with
�� � � � � � � � � � � Anuj who had performed esophagectomy.
�� � � � � � � � � � � - No gross lesions in the stomach.
�� � � � � � � � � � � - Normal duodenal bulb, first portion of the duodenum
�� � � � � � � � � � � and second portion of the duodenum.
CT Neck/Chest 08/12/23:
NECK CT:
1. � No CT evidence for soft tissue emphysema or lymphadenopathy in the neck.
2. � Severe multilevel left-sided facet joint arthrosis in the cervical spine.
3. � SEVERE SPINAL CORD COMPRESSION and CENTRAL CANAL STENOSIS at C3/C4.
CHEST CT:
1. � Previous esophagectomy and gastric pull-through surgery.
2. 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 Moderate surrounding inflammation in the mediastinum. An
inflammatory stricture is considered most likely. Recurrent malignancy is an alternative diagnostic possibility.
3. � No CT evidence for extraluminal air or fluid in the mediastinum to suggest an acute esophageal perforation.
4. � Mild mediastinal lymphadenopathy.
5. � MODERATE LEFT LOWER LOBE PNEUMONIA (probably aspiration pneumonia) with an adjacent small parapneumonic pleural effusion.
6. � Mild airway aspiration in the right lower lobe and minimal right pleural effusion.
7. � Previous midline sternotomy, CABG surgery, and aortic valve replacement.
Impression:
Dysphagia
Esophageal CA s/p chemo/XRT and resection in November 2022
Post op leak and stricture requiring repeated dilation and Axios stent placed 06/11/23
CAD/CABG
EGD 08/12/23 with dilatation, pre-existing axios stent migration with impaction/wedged in esophagus, axios stent removal with some difficulty
Recommendations:
-Discussed with Dr. Baig, moira to start Full liquid diet.
-Patient seen by Dr. Leslie
-Continue J tube for nutrition
-See how patient tolerates. If ok may be able to DC later today. Discussed with IM Attending.
-Follow up appt made with ALEENA Plasencia with Dr. Mcdermott in the office on 09/02/23 at 11:30.
Subjective
Subjective
Date of Service: August 13, 2023
Patient without any current GI complaints. He states that 'I feel the best I felt in 4 weeks'. He also states 'I feel like I can finally swallow now'. Patient denies any chest pain, shortness of breath, cough or odynophagia.
Objective
Data Reviewed
Laboratory Data:
Laboratory Results
08/12/23 08:51
08/12/23 08:51
Laboratory Results
Total Bilirubin 2.0 mg/dl (0.2-1.3) H 08/11/23 12:05
AST 25 U/L (17-59) 08/11/23 12:05
ALT 16 U/L (0-50) 08/11/23 12:05
Alkaline Phosphatase 104 U/L (38-126) 08/11/23 12:05
Vital Signs and I&O:
Vital Signs
Temp Pulse Resp BP Pulse Ox
97.5 F 60 18 134/61 98
08/13/23 07:37 08/13/23 07:37 08/13/23 07:37 08/13/23 07:37 08/13/23 07:37
I&O
08/12/23 08/13/23 08/14/23
06:59 06:59 06:59
Intake Total 800 / 800 1160 / 1160
Balance 800 / 800 1160 / 1160
[2023-08-13 11:49] LABS: Glucose - Point of Care 139 mg/dl (70-99)
--- NOTE | 2023-08-13 12:33 | CM ---
Patient brendon bedside, reports no new concerns, reports to be feeling better today. CM will continue to follow for discharge planning needs.
Plan; home no need anticipated.
[2023-08-13 13:50] VITALS: BP 132/63
--- NOTE | 2023-08-13 14:01 | W.DS.TRANS ---
DC Summary - Office Agent
-
Discharge Instructions:
Discharge Diagnosis/Procedures Dysphagia
s/p esophogeal dilitation
Rt lower lobe infiltrate /asymptomatic
Diet Regular,Grind all food
Additional Diets best to stick with soft foods ,ground meats well
chewed / cont supplemental jevity thru J tube
Activity No restrictions
Driving Restrictions As prior to admission
Instructions:
Stand-Alone Forms:
Changes to Home Medications: No
Discharge Medications:
DC Medications w/original date entered in [facility]
carvedilol 12.5 mg tablet 25 mg feeding tube BID #60 tabs 12/20/22
lansoprazole 30 mg delayed release,disintegrating tablet (Prevacid SoluTab) 30 mg feeding tube DAILY #60 tabs 12/20/22
aspirin 81 mg tablet,delayed release 81 mg feeding tube DAILY 08/11/23
atorvastatin 80 mg tablet 80 mg feeding tube HS 08/11/23
cholecalciferol (vitamin D3) 5,000 units G-tube DAILY 08/11/23
cholestyramine (with sugar) 4.5 g G-tube DAILY@1400 08/11/23
potassium chloride 20 mEq oral packet 20 meq feeding tube DAILY 08/11/23
rivaroxaban 20 mg tablet (Xarelto) 20 mg G-tube .SEE BELOW 08/11/23
Home Medication Changes
Pending Results: No
Total time spent discharging patient (in min): 42
--- NOTE | 2023-08-13 15:18 | CON.SURG ---
Surgical Consultation
-
Mr. Murray Killian (1945) is a 77-year-old man with a history of distal esophageal cancer surgically resected in November 2022. Postoperatively, he developed a major anastomotic leak after manipulation of the NGT, which sealed spontaneously without
any interventions. However, he developed a stricture (which is not surprising after a leak), requiring multiple dilatations and then a stent placement by Dr. Juanjose Baig. Yesterday, he underwent further dilatation and retrieval of the stent due to
the migration of the stent. After the procedure, he was noted to have some subcutaneous air in his neck, suggesting possible disruption of the esophagus. Therefore, he was admitted for observation. He underwent a CT of the neck and chest, showing no
obvious evidence of perforation. Furthermore, he remained afebrile with stable vital signs and normal WBC counts. He had no complaints this morning. Actually, he is feeling better since the stent was removed. His past medical history is significant
for esophageal cancer, s/p esophagectomy, HTN, TIA, GERD, RBBB, CAD, and aortic stenosis. He is allergic to no medications.
BP 132/63
HR 73
Temp 97.6
O2 Sat 98 on room air
His lungs were clear bilaterally.
His heart had a regular rate and rhythm.
I was not able to appreciate any crepitus in his neck or chest.
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
S/p dilatation and stent removal with possible iatrogenic perforation
����������� There is no evidence of perforation clinically and radiographically at this time.
����������� Recommend increasing diet as he tolerates
����������� If he remains stable, consider discharge later today or tomorrow
I will see him in my office for esophageal cancer recurrence surveillance.
The above was discussed with Mr. Killian, his , and Dr. Baig.
--- NOTE | 2023-08-14 10:59 | W.DCSUMMARY ---
Discharge Summary
Discharge Data
Date of Admission: 08/11/23
Date of Discharge: 08/13/23
Total time spent discharging patient (in min): 45
-
Pending Results: No
Hospital Course
77-year-old male with a known history of distal esophageal cancer that was resected in November 2022 he then developed major an anastomotic leak after manipulation of a NG tube and was sealed spontaneously without intervention at that time. He
subsequently has developed strictures requiring multiple dilatations and stent placement by Dr. Kyree becker. He developed similar presentation of esophageal dilatation of dysphagia with weight loss regurgitation after eating especially of solids and
is admitted observation status .
Subsequent evaluation by the GI service prompted need for EGD for attempted dilatation and stent with retrieval. With further dilatation and retrieval of the stent due to migration of the stent the patient was noted to have after significant
manipulation at an attempt to obtain stent retrieval developed subcutaneous air in his neck suggesting possible disruption of esophagus. A CT of the neck and chest showed no obvious evidence of perforation patient remained afebrile although CT
image did show a right lower lobe infiltrate the patient had no leukocytosis no febrile course nor respiratory issues. Quite contrary the patient following morning after assessment was able to swallow accordingly and felt that his speech was
significantly better than it had been in weeks. He was seen by Dr. Dinesh BOND also finding no evidence of any perforation clinically or radiographically. Recommendation was for increasing his diet and that was undertaken prior to his discharge
without difficulty. He agreed to see him in his office for further follow-up with esophageal cancer recurrence surveillance with understanding of discharge plan with Mr. Killian his and Dr. Baig.
Discharge Plan
-
Patient Disposition: Home (Routine Discharge)
Discharge Diagnosis/Procedures: Dysphagia
s/p esophogeal dilitation
Rt lower lobe infiltrate /asymptomatic
Diet: Regular and Grind all food
Additional Diets: best to stick with soft foods ,ground meats well chewed / cont supplemental jevity thru J tube
Activity: No restrictions
Driving Restrictions: As prior to admission
Referrals:
Jackie Trinh MD [Family Provider] -
Kristyn Ty PA-C [Specified Professional Personl] - 09/02/23 11:30 am
Prescriptions:
Continued
carvedilol 12.5 mg Tablet
25 mg feeding tube BID Qty: 60 0RF
Rx Instructions:
08/11/2023, via G-Tube.
lansoprazole [Prevacid SoluTab] 30 mg tablet,disintegrat, delay rel
30 mg feeding tube DAILY Qty: 60 0RF
Rx Instructions:
08/11/2023, via G-Tube.
aspirin 81 mg Tablet,Delayed Release (Dr/Ec)
81 mg feeding tube DAILY
Rx Instructions:
08/11/2023, via G-Tube.
potassium chloride 20 mEq Packet
20 meq feeding tube DAILY
Patient Comments:
08/11/2023, per pt., he mixes 1.5 g of this med. in 4 oz of water.
Rx Instructions:
08/11/2023, via G-Tube.
Xarelto 20 mg Tablet
20 mg G-tube .SEE BELOW
Patient Comments:
08/11/2023, per pt., his doctor told him to stop taking this med. two days ago for his procedure.
cholecalciferol (vitamin D3) 125 mcg tablet
5,000 units G-tube DAILY
atorvastatin 80 mg tablet
80 mg feeding tube HS
Rx Instructions:
08/11/2023, via G-Tube.
cholestyramine (with sugar) 4 gram powder
4.5 g G-tube DAILY@1400
Patient Comments:
08/11/2023, per pt., he mixes half a packet (4.5 g) in 3 oz of water.
Discharge Orders:
Discharge Patient (As Directed); Ordered 08/13/23
Ordered By: Kole Arellano
Discharge Date and Time
Discharge Date/Time: 08/13/23 14:55
--- NOTE | 2023-08-14 11:04 | W.DS.TRANS ---
DC Summary - Chief Of Vital Statistics
-
Discharge Instructions:
Discharge Diagnosis/Procedures Dysphagia
s/p esophogeal dilitation
Rt lower lobe infiltrate /asymptomatic
Diet Regular,Grind all food
Additional Diets best to stick with soft foods ,ground meats well
chewed / cont supplemental jevity thru J tube
Activity No restrictions
Driving Restrictions As prior to admission
Instructions:
Stand-Alone Forms:
Changes to Home Medications: No
Discharge Medications:
DC Medications w/original date entered in [facility]
carvedilol 12.5 mg tablet 25 mg feeding tube BID #60 tabs 12/20/22
lansoprazole 30 mg delayed release,disintegrating tablet (Prevacid SoluTab) 30 mg feeding tube DAILY #60 tabs 12/20/22
aspirin 81 mg tablet,delayed release 81 mg feeding tube DAILY 08/11/23
atorvastatin 80 mg tablet 80 mg feeding tube HS 08/11/23
cholecalciferol (vitamin D3) 5,000 units G-tube DAILY 08/11/23
cholestyramine (with sugar) 4.5 g G-tube DAILY@1400 08/11/23
potassium chloride 20 mEq oral packet 20 meq feeding tube DAILY 08/11/23
rivaroxaban 20 mg tablet (Xarelto) 20 mg G-tube .SEE BELOW 08/11/23
Home Medication Changes
Pending Results: No
Total time spent discharging patient (in min): 45
== END 2023-08-13 14:55 | disposition home or self-care (01) | DRG 392 ==
LOC: 4 WEST ACU 15:20
PROVIDERS: Clinical Nurse Specialist Family Health; Internal Medicine Gastroenterology; ADMITTING PHYSICIAN Internal Medicine; ATTENDING PHYSICIAN Internal Medicine; CONSULT PHYSICIAN Specialist; CONSULT PHYSICIAN Surgery; EMERGENCY PHYSICIAN Emergency Medicine; FAMILY PHYSICIAN Family Medicine
PROC: 0DP58DZ Removal of Intraluminal Device from Esophagus, Via Natural or Artificial Opening Endoscopic (ICD-10-PCS; 2023-08-12)
DX: K22.2 Esophageal obstruction (principal); C15.9 Malignant neoplasm of esophagus, unspecified; E44.0 Moderate protein-calorie malnutrition; G45.9 Transient cerebral ischemic attack, unspecified; I48.0 Paroxysmal atrial fibrillation; I10 Essential (primary) hypertension; K21.9 Gastro-esophageal reflux disease without esophagitis; I45.10 Unspecified right bundle-branch block; Z95.1 Presence of aortocoronary bypass graft; I25.10 Atherosclerotic heart disease of native coronary artery without angina pectoris; I35.0 Nonrheumatic aortic (valve) stenosis; E78.00 Pure hypercholesterolemia, unspecified; Z79.82 Long term (current) use of aspirin; Z85.01 Personal history of malignant neoplasm of esophagus; Z68.20 Body mass index [BMI] 20.0-20.9, adult; R91.8 Other nonspecific abnormal finding of lung field; Z79.01 Long term (current) use of anticoagulants; Z92.21 Personal history of antineoplastic chemotherapy
CPT/HCPCS: 70491; 71260; 80048; 80053; 82962; 85025; 99285; Q9967

== ENCOUNTER 2023-08-30 06:24 | Day surgery (SDC) | payer MEDICARE, OTHER, SELFPAY ==
[2023-08-30 09:40] VITALS: BMI 20.8
[2023-08-30 09:50] VITALS: BP 178/77
[2023-08-30 10:11] VITALS: BMI 20.8
[2023-08-30 12:18] VITALS: BP 127/69
[2023-08-30 12:30] VITALS: BP 130/68
[2023-08-30 12:45] VITALS: BP 152/71
== END 2023-08-30 13:05 | disposition home or self-care (01) ==
LOC: GI 06:24
PROVIDERS: ATTENDING PHYSICIAN Internal Medicine Gastroenterology
DX: K22.2 Esophageal obstruction (principal); K31.89 Other diseases of stomach and duodenum
CPT/HCPCS: 43249; 43248; 43236; C1726

== ENCOUNTER 2023-09-16 15:50 | Outpatient (RCR) | payer MEDICARE, OTHER, SELFPAY | END 2023-09-16 23:59 | disposition home or self-care (01) | LOC: RST 15:50 | PROVIDERS: ATTENDING PHYSICIAN Otolaryngology; FAMILY PHYSICIAN Family Medicine | DX: J38.01 Paralysis of vocal cords and larynx, unilateral (principal); R49.0 Dysphonia; R13.12 Dysphagia, oropharyngeal phase; C15.9 Malignant neoplasm of esophagus, unspecified; Z98.890 Other specified postprocedural states | CPT/HCPCS: 92507; 92524 ==

== ENCOUNTER → 2023-09-24 06:27 | Day surgery (SDC) | payer MEDICARE, OTHER, SELFPAY ==
[2023-09-24] VITALS (9 sets, daily range): BP systolic 153–178; BP diastolic 65–89; BMI 19.9
--- NOTE | 2023-09-24 18:47 | PTCARENOTE ---
Patient stable, mild throat discomfort, VSS, report to AMIRAH Monsivais.
== END | disposition home or self-care (01) ==
LOC: GI 06:27
PROVIDERS: ATTENDING PHYSICIAN Internal Medicine Gastroenterology
DX: K22.2 Esophageal obstruction (principal); R13.10 Dysphagia, unspecified; Z98.890 Other specified postprocedural states; K63.89 Other specified diseases of intestine; Z90.49 Acquired absence of other specified parts of digestive tract; Z85.01 Personal history of malignant neoplasm of esophagus
CPT/HCPCS: 43266; 71045; 76000; C1726; C1769; C1874

== ENCOUNTER 2023-09-27 09:14 | Outpatient (RCR) | payer MEDICARE, OTHER, SELFPAY | END 2023-09-27 23:59 | disposition home or self-care (01) | LOC: RST 09:14 | PROVIDERS: ATTENDING PHYSICIAN Otolaryngology; FAMILY PHYSICIAN Family Medicine | DX: J38.01 Paralysis of vocal cords and larynx, unilateral (principal); R49.0 Dysphonia; R13.12 Dysphagia, oropharyngeal phase | CPT/HCPCS: 92507 ==

== ENCOUNTER 2023-10-05 01:39 | Inpatient (IN) | payer MEDICARE, OTHER, SELFPAY ==
[2023-10-04 22:46] VITALS: BP 130/57
[2023-10-04 22:59] VITALS: BP 165/63
[2023-10-04 23:00] VITALS: BP 165/63
[2023-10-04 23:03] LABS: Glucose - Point of Care 93 mg/dl (70-99)
[2023-10-04 23:13] LABS: % Basophils 0.5 % (0-2); % Eosinophils 1.5 % (0-6); % Immature Granulocytes 0.3 % (0-0.5); % Lymphocytes 10.7 % (20.5-51.1); % Monocytes 13.1 % (1.7-9.3); % Neutrophils 73.9 % (42.2-75.2); Absolute Eosinophils 0.1 10^3/uL (0-0.7); Absolute Lymphocytes 0.8 10^3/uL (1.2-3.4); Absolute Neutrophils 5.5 10^3/uL (1.4-6.5); Hematocrit 36.2 % (39.0-52.0); Hemoglobin 12.4 g/dL (13.0-18.0); Mean Corp Hgb Conc. 34.3 g/dL (33.0-37.0); Mean Corpuscular Hgb 30.5 pg (27.0-31.0); Mean Corpuscular Volume 88.9 fL (80.0-94.0); Mean Platelet Volume 11.6 fL (7.4-10.4); Nucleated Red Blood Cells % 0 % (-); Platelet Count 81 10^3/uL (130-400); Red Blood Cell Count 4.07 10^6/uL (4.70-6.10); Red Cell Dist. Width 15.4 % (11.5-14.5); White Blood Cell Count 7.4 10^3/uL (4.8-10.8)
[2023-10-04 23:17] VITALS: BMI 20.7
[2023-10-04 23:19] VITALS: BP 169/60
[2023-10-04 23:23] LABS: INR 2.47; PT 26.6 Sec (11.4-14.6)
[2023-10-04 23:24] LABS: APTT 44.1 Sec (23.4-35.0)
[2023-10-04 23:28] LABS: ALT (SGPT) 26 U/L (0-50); AST (SGOT) 35 U/L (17-59); Albumin 3.1 g/dl (3.5-5.0); Alkaline Phosphatase 108 U/L (38-126); Blood Urea Nitrogen 18 mg/dl (9-20); Calcium 8.8 mg/dl (8.4-10.2); Carbon Dioxide 30 mmol/L (22-30); Chloride 102 mmol/L (98-107); Estimated Creatinine Clearance 104 ml/min; Glucose 97 mg/dl (70-99); Potassium 4.1 mmol/L (3.5-5.1); Sodium 134 mmol/L (135-145); Total Bilirubin 0.9 mg/dl (0.2-1.3); Total Protein 5.9 g/dl (6.3-8.2); eGFR > 60.00
[2023-10-04 23:30] VITALS: BP 164/63
--- NOTE | 2023-10-04 23:35 | ED.CVA ---
History of Present Illness
General
Chief Complaint: CVA/TIA Symptoms
Source: patient and previous hospital records (Previous hospitalization in July of this year for dysphagia. Multiple previous endoscopies for esophageal strictures.)
Exam Limitations: none
Time Seen by Provider: 10/04/23 23:02
Nursing documentation reviewed up to this point in time: agreed with
Onset of Stroke Symptoms
Onset of symptoms known: Yes
Date of onset of symptoms: 10/04/23
Time of onset of symptoms: 22:00
Travel History
Have you had any contact with someone who has COVID-19?: No
Do you have any symptoms of coronavirus? Fever > 100 degrees, chills, cough, shortness of breath, sore throat, loss of taste or smell, muscle aches, or headache?: No
History of Present Illness
History of Present Illness:
This is a 77-year-old gentleman who has history of hypertension, hyperlipidemia, PAF, esophageal carcinoma status post chemo/radiation, esophagectomy November 2022. He has remote history of CVA 2008 without residual deficits.
History of PAF, chronically maintained on Xarelto as well as low-dose aspirin.
Tonight around 10 PM while walking back from the bathroom he turned and suddenly developed weakness and numbness of his left leg. He had no falls. He is brought to the ED by his son.
Left leg weakness and numbness persist. He also notes very minimal paresthesias of his left distal fingertips but no weakness of his left arm, no numbness of his arm.
He denies chest pain nor shortness of breath, no dizziness nor lightheadedness. No back pain nor leg pain.
Upon arrival to ED triage, and after brief discussion with myself, stroke alert initiated and patient taken directly to CT.
My initial evaluation is after he returns from CT.
Left leg weakness persists but numbness has resolved.
Initial NIH stroke scale of 2.
Past History
Past History
ED Past Medical History: Arrthythmia (PAF), Cancer (Esophageal cancer), CVA (2008-no residual deficits), HTN, Hypercholesterolemia and Valvular disease (Aortic stenosis/aortic valve replacement)
ED Past Surgical History: Cardiac (Aortic valve replacement/CABG , 2020), Orthopedic (Right total hip replacement 2017) and Other (Esophagectomy November 2022. Multiple endoscopies for esophageal stricture with esophageal stent placement; PEG tube in
place)
Social History
Tobacco: Non-smoker
Alcohol: None
Personal:
Living: with family
Employment: Retired
Family History
Family History: Other (Noncontributory)
Phy Exam
Physical Exam
Physical Exam:
GENERAL: Alert , in no apparent distress. 77-year-old gentleman appears his stated age, awake and alert, pleasant, appears in no acute distress. Moderately hoarse voice, according to patient is chronic since esophagectomy.
EYE: pupils equal and reactive. Extraocular muscles intact. Anicteric
NECK: Supple, nontender, no meningismus, no significant adenopathy.
ENT: posterior pharynx is clear, oral mucosa is moist. TM clear b/l, nares patent.
CARDIAC: Regular rhythm, bradycardic. no murmur.
LUNGS: Clear breath sounds bilaterally, no acute respiratory distress, no wheezes/rales/rhonchi
ABDOMEN: Soft, nondistended, without focal tenderness, no r/g, no cvat. normoactive BS. PEG tube in place, site is clean and dry.
NEUROLOGICAL: Alert and oriented x3, mild to moderate weakness left lower extremity. Gross sensation intact bilaterally. Cranial nerves II through XII grossly intact.
SKIN: Warm and dry, normal color, skin intact. No rash.
MUSCULOSKELETAL: No C/C/E. peripheral pulses are full and equal b/l. No palpable tenderness.
PSYCH: Normal and appropriate interaction.
Scores
NIH Stroke Score
Level of Consciousness: 0 - Alert
LOC Questions: 0-Answers both correctly
LOC Commands: 0-Performs both correctly
Best Horizontal Gaze: 0-Normal
Visual Scott: 0=Normal, no visual loss
Facial Palsy: 0=Normal, symmetrical
Motor - Right Arm: 0=No drift 10 seconds
Motor - Left Arm: 0=No drift 10 seconds
Motor - Right Le-No drift 5 seconds
Motor - Left Le-Drift < 5 seconds
Limb Ataxia: 1-Present in one limb
Sensation: 0-Normal
Best Language: 0-No aphasia
Dysarthria: 0-Normal
Extinction and Inattention: 0-No abnormality
Total Score:: 2
Course
Orders/Labs/Results
Orders:
Orders
10/04/23 22:53
Electrocardiogram (*1) Urgent
Reason for Study: Other
Other Reason for Exam: Possible Stroke
CT Head W/o Cont STROKE ALERT Urgent
Reason For Exam: stroke alert
Bedside Glucose- Treatment ONCE
Cardiac Monitoring- Treatment ONCE
EKG- Treatment ONCE
IV Insert/Care/Rem.- Treatment PRN
Vital Signs As Directed
Frequency: Other
Weight As Directed
Frequency: Once
Comment: ZERO STRETCHER SCALE FOR ACCURATE WEIGHT
O2 Therapy [RESP] Urgent
Titrate/Wean O2 to maintain O2 sat greater than (%): 93
Special Instructions: MAINTAIN CONTINUOUS O2 SATS > OR = 93%
10/04/23 23:02
Complete Blood Count/With Diff Urgent
Comprehensive Metabolic Panel Urgent
PTT Urgent
Prothrombin Time Urgent
Troponin I Urgent
Urinalysis Reflex To Culture Urgent
Date Specimen was Collected: 10/04/23
Time Specimen was Collected: 22:53
Urine Microscopic Reflex Cult Urgent
Urine Culture Urgent
PHUONG Source: U
Specimen Description:
Date Specimen was Collected: 10/04/23
Time Specimen was Collected: 22:53
10/04/23 23:08
CT Head/Neck Ang STROKE ALERT Urgent
Reason For Exam: stroke alert-left sided weakness
10/05/23 00:26
Admit/Transfer Patient As Directed
Co-Sign Provider:
Level of Care: Inpatient admission
Assign to:: Telemetry
Physician / Group: Hospitalist
Diagnosis: CVA/TIA
Reason for Telemetry: Chest Pain syndromes
Date to Stop Telemetry: 10/07/23
Time to Stop Telemetry: 11:00
Reason for Hospitalization: CVA/TIA, troponin elevation
Expected length of stay greater than two midnights?: Yes
ELOS- Estimated Length of Stay in days: 2
I certify the patient meets the requirements for IP care: Yes
10/05/23 00:27
Code Status As Directed
Resuscitation Status: Full Code
10/07/23 11:00
DC Protocol for Telemetry ONCE
Abnormal Lab Results
10/04/23
23:02
RBC 4.07 L 10^6/uL
(4.70-6.10)
Hgb 12.4 L g/dL
(13.0-18.0)
Hct 36.2 L %
(39.0-52.0)
RDW 15.4 H %
(11.5-14.5)
Plt Count 81 L 10^3/uL
(130-400)
MPV 11.6 H fL
(7.4-10.4)
Absolute Lymphs (auto) 0.8 L 10^3/uL
(1.2-3.4)
Absolute Monos (auto) 1.0 H 10^3/uL
(0.1-0.6)
Lymphocytes % 10.7 L %
(20.5-51.1)
Monocytes % 13.1 H %
(1.7-9.3)
PT 26.6 H Sec
(11.4-14.6)
APTT 44.1 H Sec
(23.4-35.0)
Sodium 134 L mmol/L
(135-145)
Creatinine 0.6 L mg/dL
(0.7-1.3)
Troponin I 0.794 H* ng/ml
Total Protein 5.9 L g/dl
(6.3-8.2)
Albumin 3.1 L g/dl
(3.5-5.0)
Urine Ketones Trace A
(Negative)
Leukocyte Esterase Rfl Trace A
(Negative)
Urine WBC (Reflex) 16-20 A /HPF
(0-5)
Urine Bacteria (Reflex) Many A
(Negative)
10/04/23 23:02
10/04/23 23:02
Vital Signs
Initial and Last Documented VS:
Initial Vital Signs
Temp Pulse Resp BP Pulse Ox
98.7 F 40 16 130/57 99
10/04/23 22:46 10/04/23 22:46 10/04/23 22:46 10/04/23 22:46 10/04/23 22:46
Last Documented Vital Signs
Temp Pulse Resp BP Pulse Ox
98.6 F 52 18 136/65 97
10/04/23 22:59 10/05/23 02:45 10/05/23 00:03 10/05/23 02:30 10/05/23 02:45
MDM/Problems Addressed
Differential Diagnosis Includes:
History and exam quite concerning for acute CVA. Stroke alert initiated from ED triage.
NIH stroke scale of [address] of the head is unremarkable.
Awaiting CTA of the head and neck results.
Patient has history of PAF, chronically maintained on Xarelto thus not a TNK candidate but potentially an IAT candidate if CTA reveals LVO however with low NIH stroke scale of 2 this is less likely.
EKG shows sinus rhythm with frequent unifocal PVCs/bigeminy. He remains hemodynamically stable with systolic blood pressure 130-160.
Case discussed with neurology on-call, Dr. Stahl.
His initial read of CTA reveals no large vessel occlusion.
Will plan to admit to hospital service and continue close observation.
Chronic conditions affecting care: HTN, CAD, Arrhythmia, Neurological disorder (Remote history of CVA 2008-no deficits) and Cancer (History of esophageal CA status post chemo/radiation, esophagectomy.)
Acute Exacerbation and/or Progression of Chronic Illness: Neurological disorder
*Radiology
Radiology exam reviewed: radiology read reviewed
*Pulse Oximetry
Patient hypoxic: no
*EKG
Interpreted by ED Provider?: Yes
Interpretation: abnormal
Comparison EKG: changes noted (Frequent unifocal PVCs/bigeminy is new compared to previous EKG December 13, 2022 showing normal sinus rhythm)
Rate: normal
Rhythm: sinus, PVC's and other (Bigeminy)
[place]: normal axis
Interval: normal interval
QRS Pattern: right bundle branch block
Ischemia: non-specific ST changes
*Dough Mixer Operator Interpretation
Rate: normal
Rhythm: sinus, PVC's and other (Bigeminy)
*Critical Care Note
Total Time (30-74mins, 75-104mins- exclusive of procedures): Not Applicable
ED Attending Note
-
Portions of this chart may have been created with voice recognition software.� Occasional wrong word or��sound alike� substitutions may have occurred due to the inherent limitations of voice recognition software.
Discharge Plan
Departure
Patient Disposition: Admit
Date of Disposition: 10/05/23
Time of Disposition: 00:00
Admit to: Telemetry
Admit to doctor: Eric
Presentation/result/management discussed w/ accepting MD/DO: Hospitalist
Discharge Problem:
acute stroke, Elevated troponin
Interventions
Interventions:
*General Assessment Last Done: 10/04/23 22:46
ED- Pulmonary Assessment Last Done: 10/05/23 00:03
ED- Neurological Assessment Last Done: 10/05/23 02:20
ED- Cardiac Assessment Last Done: 10/05/23 00:03
ED Swallowing Screen Last Done: 10/05/23 01:33
[2023-10-04 23:42] LABS: Troponin I 0.794 ng/ml
[2023-10-04 23:45] VITALS: BP 150/75
[2023-10-05] VITALS (13 sets, daily range): BP systolic 117–170; BP diastolic 56–93; BMI 20.5
--- NOTE | 2023-10-05 00:34 | HPS.HSE ---
Family Physician
-
Family Physician: INTERVIEWE UNKNOWN - PT NOT
Chief Complaint
-
Left leg weakness
History of Present Illness
This is a 77-year-old male with past medical history significant for CAD status post CABG, aortic stenosis status post aortic valve replacement about 3 years ago, esophageal cancer status post surgical resection and subsequent loss of
voice, paroxysmal atrial fibrillation on anticoagulation, dysphagia, hypertension who presents to the emergency room with acute onset of right-sided weakness.
Patient with that she was in usual state of health up until around 10 PM on day of admission. He was sitting in the shower when his left leg just gave out. He then noticed that he had significant weakness in that leg and was unable to raise it.
He denies any other symptoms. Specifically he denies any facial droop, facial asymmetry, change in speech or swallowing. He denies any numbness or tingling. He denies any headache. He reports compliance with his medications and including his
anticoagulation on aspirin and statin. Patient physically denies having any chest pain. He denies any palpitations. Denies any recent exertional dyspnea or chest pain. Patient denies any lower extremity swelling.
In the ED he had a NIH score of 2. Otherwise not a candidate for tPA due to his anticoagulation status. INR was 2.4. Patient was hemodynamically stable
Hypertensive to 170/78. Oxygen saturation was normal on room air. ECG showed a sinus rhythm with a rate of 70 with right bundle branch and bigeminy which is slightly changed from prior. Previously had the same pattern
Rhythm bigeminy PVCs. Troponin was 0.79. Chemistries were within normal limits. CBC was unremarkable. UA is pending. CT of the head is negative for acute stroke or bleed. CTA shows no dissection, stenosis, thrombosis bleed or mass effect.
Medical History
Past Medical History
Past Medical History: Reports CAD, HTN and Other (paroxysmal atrial fibrillation)
Additional Past Medical History:
Esophageal cancer s/p surgery
Chronic laryngeal dysfunction
Past Surgical History: Reports Cardiac (CABG with Aortic valve replacement.)
Social History
Tobacco: Former Smoker
Alcohol: None
Drug: None
Personal:
Living: With Family
Employment: Employed
Family History
Family History: Not pertinent
Allergies / Home Medications
Allergies reflects when Allergies were last updated in [facility].
Home Medications with original date entered in [facility]
Allergy/Medication List:
Allergies
Allergy/AdvReac Type Severity Reaction Status Date / Time
No Known Allergies Allergy Verified 10/04/23 23:42
Home Medications
aspirin 81 mg tablet,delayed release 81 mg PO DAILY 08/11/23
atorvastatin 80 mg tablet 80 mg PO HS 08/11/23
cholecalciferol (vitamin D3) 125 mcg (5,000 unit) tablet (Vitamin D3) 125 mcg PO DAILY ##0 08/11/23
potassium chloride 20 mEq oral packet 20 meq PO DAILY 08/11/23
rivaroxaban 20 mg tablet (Xarelto) 20 mg PO DAILY 08/11/23
carvedilol 12.5 mg tablet 12.5 mg PO BID 08/30/23
lansoprazole 30 mg delayed release,disintegrating tablet (Prevacid SoluTab) 30 mg PO DAILY 08/30/23
cholestyramine (with sugar) 4 gram powder for susp in a packet 1 ea PO DAILY 10/04/23
pantoprazole 40 mg granules delayed-release for susp in packet 40 mg PO DAILY 10/04/23
Review of Systems
-
History Source: Patient
Constitutional: Reports No Symptoms
EENT: Reports No Symptoms
Respiratory: Reports No Symptoms
Cardiac: Reports No Symptoms
Abdomen/GI: Reports No Symptoms
: Reports No Symptoms
Musculoskeletal: Reports No Symptoms
Skin: Reports No Symptoms
Neurological: Reports Weakness
Endocrine: Reports No Symptoms
Hematologic/Lymphatic: Reports No Symptoms
Psych: Reports No Symptoms
Physical Exam
Vital Signs
Vital Signs
Temp Pulse Resp BP Pulse Ox
98.6 F 73 18 170/78 98
10/04/23 22:59 10/05/23 00:03 10/05/23 00:03 10/05/23 00:00 10/05/23 00:03
Physical Exam
General: Well Developed, Well Nourished, No Apparent Distress and Comfortable
HEENT: NormoCephalic, Anicteric, Moist mucous membranes and Atraumatic
Respiratory: Clear
Cardiac: S1/S2 and Regular Rhythm
Breast: Deferred by me
GI: Soft, Non Tender, Non Distended and Normal Bowel Sounds
Rectal: Deferred by Provider
Genito-urinary: Deferred by me
Musculoskeletal: No Clubbing, No Cyanosis and No Edema
Skin: Warm
Neuro: AO x 3, Cranial Nerves Intact, No Sensory Deficits, DTR's Intact & Symmetrical and Other (left leg weakness, 3/5 at the hip, 3/5 ankle)
Hematologic/Lymphatic: No Lymphadenopathy
Psych: Calm
Laboratory Results
-
10/04/23 23:02
10/04/23 23:02
Laboratory Results
PT 26.6 Sec (11.4-14.6) H 10/04/23 23:02
INR 2.47 10/04/23 23:02
APTT 44.1 Sec (23.4-35.0) H 10/04/23 23:02
Total Bilirubin 0.9 mg/dl (0.2-1.3) 10/04/23 23:02
AST 35 U/L (17-59) 10/04/23 23:02
ALT 26 U/L (0-50) 10/04/23 23:02
Alkaline Phosphatase 108 U/L (38-126) 10/04/23 23:02
Troponin I 0.794 ng/ml H* 10/04/23 23:02
Data Reviewed
-
CT Scan: Report Reviewed by me
Medical Tests (Nuc Med, Echo, EKG etc): Image Personally Visualized and interpreted
Lab Data: Labs Reviewed by me
Old Records: Reviewed
Impression/Plan
-
IMPRESSION:
PLAN:
1. TIA/CVA - Patient with prior remote CVA, pAFIB, HLD, HTN presenting with acute left leg weakness. 3/5 at the hip. Improving since presentation. CT head is negative for bleed or stroke. CTA negative. Already anticoagulated and on aspirin and
statin. Not a TPA candidate.
- admit to telemetry
- neurochecks q 6 hours
- continue aspirin/Xarelto. Plavix per neuro. If
- check MRI, if positive, consider failure of Xarelto and change anticoagulation
- continue statin
- neurology consultation
- PT OT
2. Troponin Elevation - Incidental trop elevation to 0.79. No chest pain, SOB or VITALE. ECG with known RBBB. No acute ischemia. H/O CAD s/p CABG and AVR.
- telemetry
- continue aspirin Xarelto for now
- cycle enzymes in 3 hours then q 6
- echo in am
- cardiology consultation
3. pAFIB -
- continue Xarelto for now, INR 2.4
- rate controlled, continue Carvedilol.
4. GERD
- continue ppi
5. Laryngeal dysfunction - Occured since esophageal surgery
- follow up with occupation therapy
Full Code
[2023-10-05 01:34] LABS: Urine Albumin Negative (Neg - Trace); Urine Bilirubin Negative (Negative); Urine Character Clear (Clear); Urine Color Yellow; Urine Glucose Negative (Negative); Urine Ketone Trace (Negative); Urine Leukocyte Trace (Negative); Urine Nitrite Negative (Negative); Urine Occult Blood Negative (Negative); Urine Urobilinogen Negative (Neg - 1+)
[2023-10-05 02:52] LABS: Urine Squamous Cell 21-25 /LPF (Few)
[2023-10-05 02:55] LABS: Urine Bacteria Many (Negative); Urine Red Blood Cell 0-2 /HPF (0-2); Urine White Cell 16-20 /HPF (0-5)
[2023-10-05 04:38] LABS: INR 2.28
[2023-10-05 05:03] LABS: Blood Urea Nitrogen 16 mg/dl (9-20); Calcium 8.8 mg/dl (8.4-10.2); Carbon Dioxide 29 mmol/L (22-30); Chloride 102 mmol/L (98-107); Estimated Creatinine Clearance 103 ml/min; Glucose 89 mg/dl (70-99); HDL Cholesterol 55 mg/dl; LDL Cholesterol, Calculated 34 mg/dl; Potassium 3.7 mmol/L (3.5-5.1); Sodium 136 mmol/L (135-145); Total Cholesterol 101 mg/dl (50-199); Triglyceride 61 mg/dl (10-149); Very Low Density Lipoprotein 12 mg/dl (0-30); eGFR > 60.00
--- NOTE | 2023-10-05 07:23 | PTCARENOTE ---
Pt admitted to unit from ED. Pt pulled over to bed from stretcher. AAXO3. Pt reports they 'eat 5 annabelle meals a day and 2 meals through my J-tube. Jevity bolus.' Speech consult order placed. Pt oriented to room with call bazzi in reach. Plan of care
ongoing.
--- NOTE | 2023-10-05 08:04 | W.PN.UPDATE ---
Update Note
Progress Note Update
Patient seen and examined.
77-year-old male with past medical history significant for CAD status post CABG, aortic stenosis status post aortic valve replacement about 3 years ago, esophageal cancer status post surgical resection and subsequent loss of voice,
paroxysmal atrial fibrillation on xarelto, dysphagia, hypertension who presents to the emergency room with acute onset of left-sided weakness.
Appreciate neurology input, brain MRI requested, continue Xarelto, aspirin, statin, PT/OT.
Patient passed his SPL screen, diet and tube feeds ordered. He gets Jevity 1.5, 8 ounces bolused at 11 AM and 3 PM twice daily.
Cardiology following for elevated troponin, and recommends echocardiogram, continue current medications.
Trend troponins, trend EKG.
He has paroxysmal atrial fibrillation, was on Xarelto for five days 1.5 weeks ago for esophageal stent placement.
Now back on aspirin, statin, Xarelto.
[2023-10-05] MEDS: PROTONIX 40 MG PO (08:30)
[2023-10-05] MEDS: ASPIR LOW (ENTERIC COATED) 81 MG PO (08:30)
[2023-10-05] MEDS: VITAMIN D3 (cholecalciferol) 125 MCG PO (08:30)
[2023-10-05] MEDS: XARELTO 20 MG PO (08:33)
[2023-10-05] MEDS: COREG 12.5 MG PO ×2 (08:33→19:46)
--- NOTE | 2023-10-05 08:33 | PTOTSP ---
Speech Therapy Assessment
Speech, language and swallowing deemed within functional limits. 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 Patient is utilizing strategies of small bites/sips while
tolerating solids and liquids. Patient is aware of need and is compliant to avoid bread due to esophageal stent.
Recommend
1. Regular solids and Thin Liquids with patient selecting appropriate items. Small bites, single sips
2. J-tube feeding per dietary - patient states he takes tube feedings twice a day 11am/4pm along with 5 small meals per day.
3. Aspiration and reflux precautions
4. Skilled ST in acute care setting not indicated. Resume Outpatient voice therapy upon discharge and if MRI indicates stroke, comprehensive cognitive communication assessment can then take place.
--- NOTE | 2023-10-05 09:12 | CON.NEURO ---
Neuro Assessment/Plan
Assessment
IMPRESSIONS/RECOMMENDATIONS:
Abrupt change in left leg strength
Potentially due to recurrent TIA involving the left leg and paresthesias involving the left hand with total resolution subsequently
Plan
Patient was not a candidate for either tenecteplase or intra-arterial thrombectomy due to both routine use of anticoagulant in the form of rivaroxaban and absence of clot for retrieval respectively
Provide medical educational materials
Request vascular surgery to evaluate for 80% right internal carotid artery narrowing due to prior radiation therapy
Would continue the his usual regimen of rivaroxaban and aspirin
Continue patient's usual atorvastatin 80 mg
Check MRI of brain in addition to MRI of cervical spine to evaluate for possible etiologies for the this continued left leg and prior left hand symptoms
Will continue to follow.
Consultation
Order
Date of Consultation: 10/05/23
Requesting Provider: Hospitalists
Reason for Consult: Left lower extremity weakness
Subjective/Objective
Subjective Data
Date of Service: October 05, 2023
Right-Handed
Patient presented to this hospital's emergency department last evening with sudden onset weakness and numbness of his left leg. Was unable to utilize the leg immediately afterwards. The patient also reported paresthesias involving the left arm
(hand only) without weakness after hours. No change to weakness since onset.
No prior episodes. No other associated symptoms. No known modifying factors.
Objective Data
Vital Signs
Temp Pulse Resp BP Pulse Ox
36.6 C 56 14 154/67 98
10/05/23 07:54 10/05/23 07:54 10/05/23 07:54 10/05/23 07:54 10/05/23 07:54
Lab Results
10/04/23 23:02
10/05/23 04:14
PT 25.0 Sec (11.4-14.6) H 10/05/23 04:14
INR 2.28 10/05/23 04:14
APTT 44.1 Sec (23.4-35.0) H 10/04/23 23:02
Sodium 136 mmol/L (135-145) 10/05/23 04:14
Potassium 3.7 mmol/L (3.5-5.1) 10/05/23 04:14
BUN 16 mg/dl (9-20) 10/05/23 04:14
Glucose 89 mg/dl (70-99) 10/05/23 04:14
Calcium 8.8 mg/dl (8.4-10.2) 10/05/23 04:14
LDL Cholesterol, Calc 34 mg/dl 10/05/23 04:14
Patient Allergies
No Known Allergies Allergy (Verified 10/04/23 23:42)
CVA Assessment
Onset of Stroke Symptoms
Onset of symptoms known: Yes
Date of onset of symptoms: 10/04/23
Time of onset of symptoms: 23:00
Time pt last seen normal is known: Yes
Date last time pt seen normal: 10/04/23
Time last time pt seen normal: 23:00
NIH Stroke Score
Level of Consciousness: 0 - Alert
LOC Questions: 0-Answers both correctly
LOC Commands: 0-Performs both correctly
Best Horizontal Gaze: 0-Normal
Visual Scott: 0=Normal, no visual loss
Facial Palsy: 0=Normal, symmetrical
Motor - Right Arm: 0=No drift 10 seconds
Motor - Left Arm: 0=No drift 10 seconds
Motor - Right Le-No drift 5 seconds
Motor - Left Le-None vs. gravity
Limb Ataxia: 0-Absent
Sensation: 0-Normal
Best Language: 0-No aphasia
Dysarthria: 0-Normal
Extinction and Inattention: 0-No abnormality
Total Score:: 3
Tenecteplase Contraindications
Inclusion and Exclusion criteria reviewed: Yes
Review of Systems
-
History Source: Patient
All other systems: Reviewed and negative
EENT: Swallowing Difficulty; Negative Decreased Vision
Respiratory: Negative Trouble Breathing
Cardiac: Negative Chest Pain
Abdomen/GI: Negative Incontinence of Stool
Genitourinary: Negative Incontinence
Musculoskeletal: Negative Back Pain or Neck Pain
Neuro: Other (loss of voice x 2 months); Negative Dizzy or Headache
Physical Exam
-
General: No Apparent Distress and Appears Stated Age
Eyes: Round OU, [place] Conjunctivae and No Ptosis
HEENT: Anicteric and Moist Mucous Membranes
Neck: Full Range of Motion
Respiratory: No Dyspnea
Cardiac: No JVD
GI: Non-distended
Skin: Unremarkable
Extremities: No Clubbing, No Cyanosis and No Edema
Psych: Intact Judgement/Insight
Extended Neurological Exam
Mood & Affect: Mood Unremarkable and Affect Unremarkable
Attention Span & Concentration: Awake, Alert, Interactive and No Difficulty with 2 Step Request
Memory: Unremarkable
Tremor: Hand Tremor Absent and Head Tremor Absent
Involuntary Movement: None
Speech: Quantity Unremarkable and Other (whispered)
Cranial Nerve II: Left Eye: Pupillary Reactivity Unremarkable, Pupillary Size Unremarkable and Visual Scott Intact
Cranial Nerve II: Right Eye: Pupillary Reactivity Unremarkable, Pupillary Size Unremarkable and Visual Scott Intact
Cranial Nerves III, IV, : Extraocular Movement: Extraocular Movement Full in all Directions
Cranial Nerve V: Facial Sensation: Facial Sensation Unremarkable to Cold
Cranial Nerve VII: Facial Symmetry: Normal Facial Symmetry
Cranial Nerve VIII: Hearing: Unremarkable Hearing to Normal Conversational Volume
Cranial Nerves IX, X: Palate Movement: Palate Elevation Symmetric
Cranial Nerve XI: Shoulder Shrug: Unremarkable
Cranial Nerve XII: Tongue Protusion: Midline
Muscle Strength, Overall: Reduced on Left (Lower extremity 2 out of 5 proximally and distally) and Full in Upper Extremities; Negative Reduced on Right
Muscle Bulk & Tone: Bulk Unremarkable and Tone Unremarkable
Pronator Drift: No Drift in Upper Extremities and Unable to Assess (Drift in bilateral lower extremities)
Deep Tendon Reflexes: 3+ (Bilateral ankles) and Otherwise Unremarkable
Cold Sensation: Reduced Severely Distally
Vibration Sensation: Reduced Severely Distally
Touch Sensation: Unremarkable
Coordination: [id number] Testing Unremarkable
Babinski Sign: Present Bilaterally
Gait & Station: Unable to Assess
Data Reviewed
-
MRI Head: Report Reviewed and Image Reviewed
Labs: Report Reviewed
Reviewed with: Physician and Patient
Old Records: Summarized
Medications
-
Active Medications
Generic Name Dose Route Start Last Admin
Trade Name Freq PRN Reason Stop Dose Admin
Acetaminophen 650 mg 10/05/23 03:39
Acetaminophen 650 Mg Rectal Suppository RECTAL 11/02/23 03:38
Q4HPRN PRN
GALLO, mild pain, or temp >100.4F
Acetaminophen 650 mg 10/05/23 03:39
Acetaminophen 325 Mg Tablet PO 11/02/23 03:38
Q4HPRN PRN
GALLO, mild pain, or temp >100.4F
Aspirin 81 mg 10/05/23 08:00 10/05/23 08:30
Aspirin 81 Mg (Enteric Coated) Tablet PO 11/02/23 07:59 81 mg
DAILY CHANTELLE Administration
Atorvastatin Calcium 80 mg 10/05/23 22:00
Atorvastatin (Lipitor) 80 Mg Tablet PO 11/02/23 21:59
HS CHANTELLE
Carvedilol 12.5 mg 10/05/23 08:00 10/05/23 08:33
Carvedilol 12.5 Mg Tablet PO 11/02/23 07:59 12.5 mg
BID CHANTELLE Administration
Cholecalciferol 125 mcg 10/05/23 08:00 10/05/23 08:30
Cholecalciferol (Vitamin D3) 125 Mcg Tablet (5,000 Units) PO 11/02/23 07:59 125 mcg
DAILY CHANTELLE Administration
Cholestyramine Resin 4 grams 10/05/23 09:00
Cholestyramine/Aspartame 4 Gram Packet PO 11/02/23 08:59
DAILY@0900 CHANTELLE
Pantoprazole Sodium 40 mg 10/05/23 08:00 10/05/23 08:30
Pantoprazole 40 Mg Delayed Release Tablet PO 11/02/23 07:59 40 mg
DAILY CHANTELLE Administration
Rivaroxaban 20 mg 10/05/23 08:00 10/05/23 08:33
Rivaroxaban 20 Mg Tablet PO 11/02/23 07:59 20 mg
DAILY CHANTELLE Administration
Sodium Chloride 0 flush 10/05/23 04:00
Sodium Chloride 0.9% (Flush) Syringe IV 11/02/23 03:59
PER PROTOCOL CHANTELLE
Home Medications
�Medication �Instructions �Recorded
aspirin 81 mg tablet,delayed 81 mg PO DAILY 08/11/23
release
atorvastatin 80 mg tablet 80 mg PO HS 08/11/23
cholecalciferol (vitamin D3) 125 125 mcg PO DAILY ##0 08/11/23
mcg (5,000 unit) tablet (Vitamin
D3)
potassium chloride 20 mEq oral 20 meq PO DAILY 08/11/23
packet
rivaroxaban 20 mg tablet (Xarelto) 20 mg PO DAILY 08/11/23
carvedilol 12.5 mg tablet 12.5 mg PO BID 08/30/23
lansoprazole 30 mg delayed 30 mg PO DAILY 08/30/23
release,disintegrating tablet
(Prevacid SoluTab)
cholestyramine (with sugar) 4 gram 1 ea PO DAILY 10/04/23
powder for susp in a packet
pantoprazole 40 mg granules 40 mg PO DAILY 10/04/23
delayed-release for susp in packet
Past History
Past History
ED Past Medical History: Arrthythmia (PAF), Cancer (Esophageal adenocarcinoma), CVA (2008-no residual deficits), HTN, Hypercholesterolemia, NIDDM (Prediabetic), Valvular disease (Aortic stenosis/aortic valve replacement) and Other (Esophageal
stricture)
ED Past Surgical History: Cardiac (Aortic valve replacement/CABG 2020), Orthopedic (Right total hip replacement 2017) and Other (Esophagectomy November 2022. Multiple endoscopies for esophageal stricture with esophageal stent placement; PEG tube in
place; bilateral cataract extractions; bilateral herniorrhaphies)
Social History
Tobacco: Non-smoker
Alcohol: None
Personal:
Living: with family
Employment: Retired
Family History
Family History: Other (Reviewed and noncontributory)
--- NOTE | 2023-10-05 09:19 | CON.CAR ---
Addendum entered and electronically signed by Truman Puga MD 10/05/23 16:19:
77 yo male with PMH of severe s/p AVR, CAD s/p CABG 2020, paroxysmal A fib on xarelto admitted with leg weakness, and being evaluated for CVA. Does not appear to be xarelto failure, as was recently held for a procedure. We are consulted for
elevated troponin. He has no chest pain. Exam with RRR, no murmurs, no edema. Tele: SR, PAC's, PVC's. EKG: NSR, RBBB, PVC's.
Elevated troponin. Peak 3.29. Does not appear to be ACS. May be acute non-ischemic myocardial injury in setting of CVA. Will check echo this admission.
Original Note:
Consultation
Consultation Request
Date/Time Consultation Requested: 10/05/2023 0800
Date/Time Consultation Performed: 10/05/2023 0900
Requesting Provider: Dr. Reyes
Performing Provider: Dr. Puga
Reason for Consultation: elevated troponin
Medical History
-
Chief Complaint: LLE weakness
History of Present Illness:
�������Murray Killian is a 77-year-old gentleman who follows with DR. Castellanos. Previous history includes:
����� Severe aortic valve stenosis Status post surgical aortic valve replacement with #23 Magna Ease (01/27/2021)
������.Coronary artery disease status post coronary artery bypass grafting (BROWNING to LAD, GSV to D1)
������ Hyperlipidemia
����� History of TIA
�������Hypertension
������ Pre-diabetes
������ Right bundle branch block
�������Esophageal CA s/p esophagectomy (12/07/2022), complicated by esophageal stenosis requiring dilation/stent
�������PAF on rivaroxaban
He was diagnosed with esophageal cancer requiring chemotherapy and radiation prior to esophagectomy in November 2022. This was complicated by an anastomotic leak with subsequent closure. He has subsequently required esophageal dilation and stent
placement to assist with stenosis/stricture.
He present to ER with LLE weakness . He went to the bathroom and then went to walk out and L leg gave out. He lost all strength . Now he can lift it but not sure he can put pressure on it . Concern is for TIA vs CVA. Troponin was checked and is
elevated . He denies any CP,palps, SOB. Recent esophageal stent placement about 1.5 weeks ago. He did hold his xarelto for this about a total of 5 days .
Past Medical History
Past Medical History: Other (Severe aortic valve stenosis Status post surgical aortic valve replacement with #23 Magna Ease (01/27/2021). Coronary artery disease status post coronary artery bypass grafting (BROWNING to LAD, GSV to D1),
Hyperlipidemia,History of TIA, Hypertension, Pre-diabetes ,��)
Past Surgical History: Other ( Esophageal CA s/p esophagectomy (12/07/2022), complicated by esophageal stenosis requiring dilation/stent, CAB/AVR 2020)
Social History
Tobacco: Non-Smoker
Alcohol: None
Family History
Family History: Reviewed & Not Pertinent
Allergies / Home Medications
Allergy/AdvReac Type Severity Reaction Status Date / Time
No Known Allergies Allergy Verified 10/04/23 23:42
�Medication �Instructions �Recorded �Confirmed �Type
aspirin 81 mg tablet,delayed 81 mg PO DAILY 08/11/23 10/04/23 History
release
atorvastatin 80 mg tablet 80 mg PO HS 08/11/23 10/04/23 History
cholecalciferol (vitamin D3) 125 125 mcg PO DAILY ##0 08/11/23 10/04/23 History
mcg (5,000 unit) tablet (Vitamin
D3)
potassium chloride 20 mEq oral 20 meq PO DAILY 08/11/23 10/04/23 History
packet
rivaroxaban 20 mg tablet (Xarelto) 20 mg PO DAILY 08/11/23 10/04/23 History
carvedilol 12.5 mg tablet 12.5 mg PO BID 08/30/23 10/04/23 History
lansoprazole 30 mg delayed 30 mg PO DAILY 08/30/23 10/04/23 History
release,disintegrating tablet
(Prevacid SoluTab)
cholestyramine (with sugar) 4 gram 1 ea PO DAILY 10/04/23 10/04/23 History
powder for susp in a packet
pantoprazole 40 mg granules 40 mg PO DAILY 10/04/23 10/04/23 History
delayed-release for susp in packet
Review of Systems
-
Constitutional: No Symptoms
EENT: No Symptoms
Respiratory: No Symptoms
Cardiac: No Symptoms
Abdomen/GI: No Symptoms
: No Symptoms
Neurological: Weakness (acute weakness LLE )
Physical Exam
Vital Signs
Temp Pulse Resp BP Pulse Ox
98 F 56 14 154/67 98
10/05/23 07:54 10/05/23 07:54 10/05/23 07:54 10/05/23 07:54 10/05/23 07:54
Lab Results
10/04/23 23:02
10/05/23 04:14
Troponin I Cancelled 10/05/23 06:00
Physical Exam
General: Well Developed, Well Nourished and No Apparent Distress
HEENT: Normocephalic and Moist Mucous Membranes
Respiratory: Clear
Cardiac: S1/S2 and Regular Rhythm
Breast: Deferred by me
GI: Soft, Non Distended and Normal Bowel Sounds
Musculoskeletal: No Edema
Skin: Warm and Dry
Neuro: AO x 3
Psych: Calm
Impression / Plan
-
LLE weakness:
-neuro w/u in progress
-no presyncope/syncope involved per pt.
Elevated troponin:
-abnormal troponin in absence of cardiac symptoms
-trend
-EKG with chronic RBBB, frequent PVC's notes
-update echo
-con't current meds
PAF:
-had been off his xarelto about 1.5 weeks ago for esophageal stent placement. In total was off for 5 days
-currently in NSR
CAD:
-con't current meds
-trend torponin
-update echo
-no recent ischemic eval
AVR:
-prior bio-AVR
carotid stenosis:
-CTA with bulb stenosis
-con't statin
Data Reviewed
-
EKG: Tracing Personally Visualized and interpreted (NSR 70 bpm, RBBB, frequent PVC's bigeminy )
Radiology: Report Reviewed by me (Head neck CTA 10/04/23 No high-grade stenosis or occlusion in the [place]. 2. Bilateral carotid bifurcation atherosclerosis contributing to 80% stenosis of the right carotid bulb and 50% stenosis of the left
carotid bulb. 3. 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
Medical Tests (Nuc Med, Echo etc): Report Reviewed by me (Echo 2022 : Very poor quality echo, apparently technically limited because patient still had surgical geraldine on his abdomen. Probably Normal left ventricular systolic function .Left
ventricular ejection fraction is approx 55-60% by limited visual assessment. Bioprosthetic aortic valve with p)
Labs: Labs Reviewed by me and Discussed with Physician
Old Records: Reviewed
Critical Care Time (in minutes): OP cardiology records 06/28/23
[2023-10-05] MEDS: ATIVAN 1 MG PO (12:12)
--- NOTE | 2023-10-05 15:20 | CM ---
building manager reviewed patient's chart and met with patient and patient lives with his spouse in a multilevel home, patient was independent with adl's and ambulation, no dme. Debra has 1st floor master bedroom and bath. Patient was seen by PT/OT and
recommendation is for acute rehab, options reviewed, and referral sent to [facility].
Plan; Acute rehab at [facility].
[2023-10-05] MEDS: QUESTRAN LIGHT/PREVALITE 4 GRAMS PO (15:45)
[2023-10-05 18:57] LABS: Troponin I 0.989 ng/ml
[2023-10-05] MEDS: LIPITOR 80 MG PO (20:09)
[2023-10-05 20:38] LABS: Blood Urea Nitrogen 15 mg/dl (9-20); Calcium 8.5 mg/dl (8.4-10.2); Carbon Dioxide 31 mmol/L (22-30); Chloride 101 mmol/L (98-107); Estimated Creatinine Clearance 103 ml/min; Glucose 99 mg/dl (70-99); Magnesium 1.8 mg/dl (1.6-2.3); Potassium 3.3 mmol/L (3.5-5.1); Sodium 137 mmol/L (135-145); eGFR > 60.00
[2023-10-05] MEDS: KCL ELIXIR 40 MEQ PO (21:27)
[2023-10-05] MEDS: MAGNESIUM OXIDE 500 MG PO (21:28)
--- NOTE | 2023-10-06 01:27 | PTCARENOTE ---
Between 16:30 and 19:40 6 episodes of vent bigeminy noted on heart monitor. Notified EMILIO Moss. New orders placed. Plan of care ongoing.
[2023-10-06 03:45] VITALS: BP 150/71
[2023-10-06 07:14] VITALS: BP 137/64
--- NOTE | 2023-10-06 08:43 | W.PN.VS ---
Today's Communication / Plan
-
check carotid duplex
Assessment/Plan
-
Left leg weaknes
Bilat infarcts
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
Check carotid duplex to eval velocities
no surgical intervention at this time given bilat nature of infarcts
will follow
Subjective Data
-
Date of Service: October 06, 2023
This is a 77-year-old male with past medical history significant for CAD status post CABG, aortic stenosis status post aortic valve replacement about 3 years ago, esophageal cancer status post surgical resection and subsequent loss of
voice, paroxysmal atrial fibrillation on anticoagulation, dysphagia, hypertension who presents to the emergency room with acute onset of right-sided weakness.
Patient with that she was in usual state of health up until around 10 PM on day of admission. He was sitting in the shower when his left leg just gave out. He then noticed that he had significant weakness in that leg and was unable to raise it.
He denies any other symptoms. Specifically he denies any facial droop, facial asymmetry, change in speech or swallowing. He denies any numbness or tingling. He denies any headache. He reports compliance with his medications and including his
anticoagulation on aspirin and statin. Patient physically denies having any chest pain. He denies any palpitations. Denies any recent exertional dyspnea or chest pain. Patient denies any lower extremity swelling.
today continues with left leg weakness
chart reports he was off anitcoagulation recently for a procedure otherwise takes xarelto daily
Objective Data
-
Vital Signs
Temp Pulse Resp BP Pulse Ox
97.8 F 54 16 150/71 98
10/06/23 03:45 10/06/23 03:45 10/06/23 03:45 10/06/23 03:45 10/06/23 03:45
Intake and Output
10/05/23 10/06/23 10/07/23
06:59 06:59 06:59
Intake Total 960 / 960
Output Total 650 / 650
Balance 310 / 310
Intake:
Oral fluids 960 / 960
Output:
Urine, Voided 650 / 650
Lab Results
10/04/23 23:02
10/05/23 20:15
Calcium 8.5 mg/dl (8.4-10.2) 10/05/23 20:15
Magnesium 1.8 mg/dl (1.6-2.3) 10/05/23 20:15
Magnesium Cancelled 10/05/23 20:15
Total Bilirubin 0.9 mg/dl (0.2-1.3) 10/04/23 23:02
AST 35 U/L (17-59) 10/04/23 23:02
ALT 26 U/L (0-50) 10/04/23 23:02
Alkaline Phosphatase 108 U/L (38-126) 10/04/23 23:02
Total Protein 5.9 g/dl (6.3-8.2) L 10/04/23 23:02
Albumin 3.1 g/dl (3.5-5.0) L 10/04/23 23:02
Physical Exam
-
rrr
ctab
nt,nd,soft
2+ radial
2+ DP bilat
left leg weakness
CTA - read as 80% stenosis of R carotid bifurcation (looks less to me on review)
MRI - bilat infarcts consist with emboli
--- NOTE | 2023-10-06 09:10 | W.PN.NEURO.1 ---
Today's Communication / Plan
-
Would continue the his usual regimen of rivaroxaban and aspirin; unfortunately likely failure of therapy due to needing to hold for esophageal expansion
will need outpatient neurosurgical evaluation in next 6 months to year
Provide medical educational materials
Consider CT of neck for hoarseness as outpatient
Continue patient's usual atorvastatin 80 mg
Neuro Assessment/Plan
Assessment
IMPRESSIONS/RECOMMENDATIONS:
Abrupt change in left leg strength
Potentially due to recurrent TIA involving the left leg and paresthesias involving the left hand with total resolution subsequently
No surgery needed at this time for 80% right internal carotid artery narrowing due to prior radiation therapy
MRI of cervical spine to evaluate for possible etiologies for the this continued left leg and prior left hand symptoms suggests severe narrowing of disks,
Plan
Would continue the his usual regimen of rivaroxaban and aspirin; unfortunately likely failure of therapy due to needing to hold for esophageal expansion
will need outpatient neurosurgical evaluation in next 6 months to year
Provide medical educational materials
Consider CT of neck for hoarseness as outpatient
Continue patient's usual atorvastatin 80 mg
Will continue to follow as outpatient.
Subjective/Objective
Subjective Data
Date of Service: October 06, 2023
No new changes.
Objective Data
Vital Signs
Temp Pulse Resp BP Pulse Ox
36.6 C 54 16 150/71 98
10/06/23 03:45 10/06/23 03:45 10/06/23 03:45 10/06/23 03:45 10/06/23 03:45
Lab Results
10/04/23 23:02
10/05/23 20:15
PT 25.0 Sec (11.4-14.6) H 10/05/23 04:14
INR 2.28 10/05/23 04:14
APTT 44.1 Sec (23.4-35.0) H 10/04/23 23:02
Sodium 137 mmol/L (135-145) 10/05/23 20:15
Potassium 3.3 mmol/L (3.5-5.1) L 10/05/23 20:15
BUN 15 mg/dl (9-20) 10/05/23 20:15
Glucose 99 mg/dl (70-99) 10/05/23 20:15
Calcium 8.5 mg/dl (8.4-10.2) 10/05/23 20:15
LDL Cholesterol, Calc 34 mg/dl 10/05/23 04:14
Patient Allergies
No Known Allergies Allergy (Verified 10/04/23 23:42)
Review of Systems
-
History Source: Patient
All other systems: Reviewed and negative
EENT: Negative Decreased Vision or Swallowing Difficulty
Respiratory: Negative Trouble Breathing
Cardiac: Negative Chest Pain
Neuro: Negative Dizzy or Headache
Physical Exam
-
General: No Apparent Distress and Appears Stated Age
Eyes: Round OU, Sigurd Conjunctivae and No Ptosis
HEENT: Anicteric and Moist Mucous Membranes
Neck: Full Range of Motion
Respiratory: No Dyspnea
Cardiac: No JVD
GI: Non-distended
Skin: Unremarkable
Extremities: No Clubbing, No Cyanosis and No Edema
Psych: Intact Judgement/Insight
Extended Neurological Exam
Mood & Affect: Mood Unremarkable and Affect Unremarkable
Attention Span & Concentration: Awake, Alert, Interactive and No Difficulty with 2 Step Request
Memory: Unremarkable
Tremor: Hand Tremor Absent and Head Tremor Absent
Involuntary Movement: None
Speech: Quantity Unremarkable and Other (whispered)
Cranial Nerve II: Left Eye: Pupillary Size Unremarkable and Visual Scott Grossly Intact
Cranial Nerve II: Right Eye: Pupillary Size Unremarkable and Visual Scott Grossly Intact
Cranial Nerves III, IV, : Extraocular Movement: Grossly Intact
Cranial Nerve VII: Facial Symmetry: Normal Facial Symmetry
Cranial Nerve VIII: Hearing: Unremarkable Hearing to Normal Conversational Volume
Muscle Strength, Overall: Reduced on Left (Lower extremity 2 out of 5 proximally and distally) and Full in Upper Extremities; Negative Reduced on Right
Muscle Bulk & Tone: Bulk Unremarkable and Tone Unremarkable
Pronator Drift: No Drift in Upper Extremities
Coordination: Reaches for Objects without Difficulty
Data Reviewed
-
MRI Head: Report Reviewed
MRI Cervical Spine: Report Reviewed
Labs: Report Reviewed
Reviewed with: Physician and Patient
Old Records: Summarized
Past History
Past History
ED Past Medical History: Arrthythmia (PAF), Cancer (Esophageal adenocarcinoma), CVA (2008-no residual deficits; bihemispheric 2023), HTN, Hypercholesterolemia, NIDDM (Prediabetic), Valvular disease (Aortic stenosis/aortic valve replacement) and
Other (Esophageal stricture)
ED Past Surgical History: Cardiac (Aortic valve replacement/CABG , 2020), Orthopedic (Right total hip replacement 2017) and Other (Esophagectomy November 2022. Multiple endoscopies for esophageal stricture with esophageal stent placement; PEG tube in
place; bilateral cataract extractions; bilateral herniorrhaphies)
Social History
Tobacco: Non-smoker
Alcohol: None
Personal:
Living: with family
Employment: Retired
Family History
Family History: Other (Reviewed and noncontributory)
Medications
-
Medications:
Generic Name Dose Route Start Last Admin
Trade Name Freq PRN Reason Stop Dose Admin
Acetaminophen 650 mg 10/05/23 03:39
Acetaminophen 650 Mg Rectal Suppository RECTAL 11/02/23 03:38
Q4HPRN PRN
GALLO, mild pain, or temp >100.4F
Acetaminophen 650 mg 10/05/23 03:39
Acetaminophen 325 Mg Tablet PO 11/02/23 03:38
Q4HPRN PRN
GALLO, mild pain, or temp >100.4F
Aspirin 81 mg 10/05/23 08:00 10/05/23 08:30
Aspirin 81 Mg (Enteric Coated) Tablet PO 11/02/23 07:59 81 mg
DAILY CHANTELLE Administration
Atorvastatin Calcium 80 mg 10/05/23 22:00 10/05/23 20:09
Atorvastatin (Lipitor) 80 Mg Tablet PO 11/02/23 21:59 80 mg
HS CHANTELLE Administration
Carvedilol 12.5 mg 10/05/23 08:00 10/05/23 19:46
Carvedilol 12.5 Mg Tablet PO 11/02/23 07:59 12.5 mg
BID CHANTELLE Administration
Cholecalciferol 125 mcg 10/05/23 08:00 10/05/23 08:30
Cholecalciferol (Vitamin D3) 125 Mcg Tablet (5,000 Units) PO 11/02/23 07:59 125 mcg
DAILY CHANTELLE Administration
Cholestyramine Resin 4 grams 10/05/23 09:00 10/05/23 15:45
Cholestyramine/Aspartame 4 Gram Packet PO 11/02/23 08:59 4 grams
DAILY@0900 CHANTELLE Administration
Magnesium Oxide 500 mg 10/05/23 20:55 10/05/23 21:28
Magnesium Oxide 500 Mg Tablet PO 11/02/23 20:54 500 mg
DAILY CHANTELLE Administration
Pantoprazole Sodium 40 mg 10/05/23 08:00 10/05/23 08:30
Pantoprazole 40 Mg Delayed Release Tablet PO 11/02/23 07:59 40 mg
DAILY CHANTELLE Administration
Rivaroxaban 20 mg 10/05/23 08:00 10/05/23 08:33
Rivaroxaban 20 Mg Tablet PO 11/02/23 07:59 20 mg
DAILY CHANTELLE Administration
Sodium Chloride 0 flush 10/05/23 04:00
Sodium Chloride 0.9% (Flush) Syringe IV 11/02/23 03:59
PER PROTOCOL CHANTELLE
[2023-10-06] MEDS: QUESTRAN LIGHT/PREVALITE 4 GRAMS PO (09:22)
[2023-10-06] MEDS: XARELTO 20 MG PO (09:22)
[2023-10-06] MEDS: MAGNESIUM OXIDE 500 MG PO (09:22)
[2023-10-06] MEDS: COREG 12.5 MG PO ×2 (09:22→20:59)
[2023-10-06] MEDS: ASPIR LOW (ENTERIC COATED) 81 MG PO (09:22)
[2023-10-06] MEDS: VITAMIN D3 (cholecalciferol) 125 MCG PO (09:22)
[2023-10-06] MEDS: PROTONIX 40 MG PO (09:22)
--- NOTE | 2023-10-06 09:24 | W.PN.HOSP.TC ---
Today's Communication/Plan
-
see bold
Assessment / Plan
Assessment / Plan
HPI: 77-year-old male with past medical history significant for CAD status post CABG, aortic stenosis status post aortic valve replacement about 3 years ago, esophageal cancer status post surgical resection and subsequent loss of voice,
paroxysmal atrial fibrillation on anticoagulation, dysphagia, hypertension who presents to the emergency room with acute onset of left-sided weakness.
1. Acute CVA
Patient presented with left leg weakness
MRI confirms acute/subacute infarcts in bilateral cerebral and cerebellar hemispheres
This is not a Xarelto failure, as patient had to stop his Xarelto for 5 days for his esophageal surgery
Continue aspirin, statin, Xarelto. Carotid ultrasound and echocardiogram requested
PT recommends acute rehab, consult physiatry on saturday
Cleared for regular diet with thin liquids, continue tube feeding boluses 8 ounces BID at 11 AM and 3 PM as well
2. Troponin Elevation
Appreciate cardiology input, patient does not have chest pain
Patient possibly has acute nonischemic myocardial injury in the setting of stroke
Echocardiogram requested
3. pAFIB -
Continue Xarelto and Coreg
4. GERD
- continue ppi
5. Laryngeal dysfunction - Occured since esophageal surgery
- follow up with occupation therapy
6. Bacteriuria
Urine cultures growing out greater than 100,000 colonies of gram-negative bacilli, follow-up on ID and sensitivities
We will treat with Augmentin twice a day for 7 days
DVT prophylaxis�Xarelto
Full code
Total time spent to see the patient on the floor, examine the patient, review data and lab results, discuss treatment plan with patient, nursing staff around 51 minutes.
Physical Exam
General: No acute distress
HEENT: Normocephalic, Atraumatic, EOMI, MMM
Hoarse voice noted
Respiratory: Clear to Auscultation bilaterally
Cardiac: Normal S1/S2, Regular Rate and Rhythm
GI: Soft, Nontender, Nondistended, Normal Bowel Sounds
+J tube
Extremities: No Clubbing, Cyanosis, or Edema
Neuro: Left lower extremity weakness noted
Psych: Calm, Cooperative
Derm: No Visible lesions
Anticipated Discharge: 24 - 48 hours
Subjective/Interval History
-
Date of Service: October 06, 2023
Patient slipped. His left lower extremity weakness is improving. He is eating better than ever. No fever, no vomiting.
Objective Data
-
Vital Signs:
Vital Signs
Temp Pulse Resp BP Pulse Ox
97.6 F 59 16 137/64 97
10/06/23 07:14 10/06/23 07:14 10/06/23 07:14 10/06/23 07:14 10/06/23 07:14
I&O
10/05/23 10/06/23 10/07/23
06:59 06:59 06:59
Intake Total 960 / 960
Output Total 650 / 650
Balance 310 / 310
--- NOTE | 2023-10-06 09:35 | PTCARENOTE ---
Addendum entered by Corine Hairston RN 10/06/23 17:35:
Dr DO aware that attempting to have pt give his bolus of tube feeding our equipment does not fit his jtube. he will have his bring his equipment in tomorrow.
Addendum entered by Corine Hairston RN 10/06/23 10:32:
Dr Do at bedside aware of morning event. no new orders.
Original Note:
at the change of shift this morning pt had call bazzi on. he was found kneeling on the ground. he states he did not fall just lowered himself to crawl to the bed as his left leg is week. staff was able to help him to a chair. He states he did not
fall and did not hit anything he just lowered himself. Call bazzi in reach and reinforced ringing for help if he needs anything.
[2023-10-06 10:33] LABS: Blood Urea Nitrogen 12 mg/dl (9-20); Calcium 8.9 mg/dl (8.4-10.2); Carbon Dioxide 30 mmol/L (22-30); Chloride 101 mmol/L (98-107); Estimated Creatinine Clearance 103 ml/min; Glucose 92 mg/dl (70-99); Potassium 3.5 mmol/L (3.5-5.1); Sodium 134 mmol/L (135-145); eGFR > 60.00
[2023-10-06 11:16] VITALS: BP 134/62
--- NOTE | 2023-10-06 14:22 | W.PN.CD ---
Today's Communication / Plan
-
echo in AM
Impression / Plan
-
CVA
-in setting of recent Xarelto hold for esophageal procedure (in setting of cancer)
-esophageal cancer requiring chemotherapy and radiation prior to esophagectomy in November 2022. This was complicated by an anastomotic leak with subsequent closure. He has subsequently required esophageal dilation and stent placement to assist
with stenosis/stricture.
-now back on Xarelto, and also ASA 81mg per neuro
Elevated troponin: peak 3.29
-no chest pain
-EKG: sinus, frequent PVC's, RBBB
-may be acute non-ischemic myocardial injury in setting of CVA
-echo in AM
Parox AFib:
-had been off his xarelto about 1.5 weeks ago for esophageal stent placement. In total was off for 5 days
-currently in NSR
-cont coreg and xarelto
CAD: prior CABG
-no angina
bio-AVR:
-echo this admission
carotid stenosis:
-CTA with bulb stenosis
-con't statin
Physical Exam
Vital Signs/Labs
Vital Signs
Temp Pulse Resp BP Pulse Ox
97.5 F 68 12 134/62 100
10/06/23 11:16 10/06/23 11:16 10/06/23 11:16 10/06/23 11:16 10/06/23 11:16
10/05/23 10/06/23 10/07/23
06:59 06:59 06:59
Actual Weight 69.428 kg
10/04/23 23:02
10/06/23 09:42
PT 25.0 Sec (11.4-14.6) H 10/05/23 04:14
INR 2.28 10/05/23 04:14
APTT 44.1 Sec (23.4-35.0) H 10/04/23 23:02
Magnesium 1.8 mg/dl (1.6-2.3) 10/05/23 20:15
Magnesium Cancelled 10/05/23 20:15
Triglycerides 61 mg/dl (10-149) 10/05/23 04:14
LDL Cholesterol, Calc 34 mg/dl 10/05/23 04:14
VLDL Cholesterol, Calc 12 mg/dl (0-30) 10/05/23 04:14
HDL Cholesterol 55 mg/dl 10/05/23 04:14
LAB Results
10/04/23 10/05/23 10/05/23
23:02 04:14 06:00
Troponin I 0.794 H* 3.290 H* D Cancelled
10/05/23 10/05/23
09:41 17:21
Troponin I 2.250 H* D 0.989 H* D
Physical Exam
Constitutional: No acute distress and Comfortable
EENT: Moist mucous membranes
Cardiovascular: Rhythm & rate is regular, Pedal edema is absent, JVD pressure is normal and Systolic murmur absent
Respiratory: Respiratory effort normal and Lungs clear to auscul.
GI: Soft, Distention absent and Flat
Neuro/Psych: AO x 3
Data Reviewed
-
Date of Service: October 06, 2023
EKG: Other (Tele: NSR, PVC's)
Labs: Labs Reviewed by me
[2023-10-06 15:33] VITALS: BP 155/73
[2023-10-06] MEDS: AUGMENTIN 875 MG/125 MG 1 TABLET PO ×2 (17:41→20:59)
[2023-10-06 19:00] VITALS: BP 147/69
[2023-10-06] MEDS: LIPITOR 80 MG PO (21:00)
[2023-10-06 21:27] LABS: Blood Urea Nitrogen 15 mg/dl (9-20); Calcium 8.8 mg/dl (8.4-10.2); Carbon Dioxide 29 mmol/L (22-30); Chloride 101 mmol/L (98-107); Estimated Creatinine Clearance 103 ml/min; Glucose 87 mg/dl (70-99); Magnesium 1.9 mg/dl (1.6-2.3); Potassium 3.8 mmol/L (3.5-5.1); Sodium 136 mmol/L (135-145); eGFR > 60.00
[2023-10-06 23:00] VITALS: BP 134/74
[2023-10-07] VITALS (7 sets, daily range): BP systolic 124–147; BP diastolic 53–72; PULSE 54; O2SAT 98
--- NOTE | 2023-10-07 07:21 | CON.VAS ---
Consultation
Consultation Request
Performing Provider: Emanuel
Reason for Consultation: Carotid stenosis
Medical History
-
Chief Complaint: Right-sided weakness
History of Present Illness:
77-year-old male with past medical history significant for CAD status post CABG, aortic stenosis status post aortic valve replacement about 3 years ago, esophageal cancer status post surgical resection and subsequent loss of voice,
paroxysmal atrial fibrillation on anticoagulation, dysphagia, hypertension who presents to the emergency room with acute onset of right-sided weakness.
Patient with that she was in usual state of health up until around 10 PM on day of admission. He was sitting in the shower when his left leg just gave out. He then noticed that he had significant weakness in that leg and was unable to raise it.
He denies any other symptoms. Specifically he denies any facial droop, facial asymmetry, change in speech or swallowing. He denies any numbness or tingling. He denies any headache. He reports compliance with his medications and including his
anticoagulation on aspirin and statin. Patient physically denies having any chest pain. He denies any palpitations. Denies any recent exertional dyspnea or chest pain. Patient denies any lower extremity swelling.
today continues with left leg weakness
chart reports he was off anitcoagulation recently for a procedure otherwise takes xarelto daily
CTA - read as 80% stenosis of R carotid bifurcation (looks less to me on review)
MRI - bilat infarcts consist with emboli
Past Medical History
Past Medical History: Other (Severe aortic valve stenosis Status post surgical aortic valve replacement with #23 Magna Ease (01/27/2021). Coronary artery disease status post coronary artery bypass grafting (BROWNING to LAD, GSV to D1),
Hyperlipidemia,History of TIA, Hypertension, Pre-diabetes)
Past Surgical History: Other (Esophageal CA s/p esophagectomy (12/07/2022), complicated by esophageal stenosis requiring dilation/stent, CAB/AVR 2020)
Social History
Tobacco: Non-Smoker
Alcohol: None
Family History
Family History: Reviewed & Not Pertinent
Allergies / Home Medications
Allergy/AdvReac Type Severity Reaction Status Date / Time
No Known Allergies Allergy Verified 10/04/23 23:42
�Medication �Instructions �Recorded �Confirmed �Type
aspirin 81 mg tablet,delayed 81 mg PO DAILY 08/11/23 10/04/23 History
release
atorvastatin 80 mg tablet 80 mg PO HS 08/11/23 10/04/23 History
cholecalciferol (vitamin D3) 125 125 mcg PO DAILY ##0 08/11/23 10/04/23 History
mcg (5,000 unit) tablet (Vitamin
D3)
potassium chloride 20 mEq oral 20 meq PO DAILY 08/11/23 10/04/23 History
packet
rivaroxaban 20 mg tablet (Xarelto) 20 mg PO DAILY 08/11/23 10/04/23 History
carvedilol 12.5 mg tablet 12.5 mg PO BID 08/30/23 10/04/23 History
lansoprazole 30 mg delayed 30 mg PO DAILY 08/30/23 10/04/23 History
release,disintegrating tablet
(Prevacid SoluTab)
cholestyramine (with sugar) 4 gram 1 ea PO DAILY 10/04/23 10/04/23 History
powder for susp in a packet
pantoprazole 40 mg granules 40 mg PO DAILY 10/04/23 10/04/23 History
delayed-release for susp in packet
Review of Systems
-
History Source: Patient
All other systems: Negative unless noted
Neurological: Reports Weakness (LLE)
Physical Exam
Vital Signs
Temp Pulse Resp BP Pulse Ox
98.2 F 62 14 132/64 97
10/07/23 03:00 10/07/23 03:00 10/07/23 03:00 10/07/23 03:00 10/07/23 03:00
Lab Results
10/04/23 23:02
10/06/23 21:00
Troponin I 0.989 ng/ml H* D 10/05/23 17:21
Physical Exam
General: No Apparent Distress
HEENT: Normocephalic and Atraumatic
Respiratory: Non Labored Respirations
Cardiac: Regular Rhythm and Other (+2 radial pulses BL)
GI: Soft, Non Tender and Non Distended
Neuro: Awake, Alert, Oriented and Other (Left leg weakness)
Pulses: Bilateral Dorsalis Pedis: +2
Assessment / Plan
-
Left leg weaknes
Bilat infarcts
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
Check carotid duplex to eval velocities
no surgical intervention at this time given bilat nature of infarcts
will follow
Data Reviewed
-
CT Scan: Discussed with Patient
--- NOTE | 2023-10-07 07:35 | PTCARENOTE ---
Between ~18:13 and 20:21, 4 episodes of Vent Bigeminy. Notified EMILIO Moss. New orders placed. Plan of care ongoing.
[2023-10-07] MEDS: MAGNESIUM OXIDE 500 MG PO (08:54)
[2023-10-07] MEDS: PROTONIX 40 MG PO (08:54)
[2023-10-07] MEDS: XARELTO 20 MG PO (08:54)
[2023-10-07] MEDS: AUGMENTIN 875 MG/125 MG 1 TABLET PO ×2 (08:54→20:03)
[2023-10-07] MEDS: COREG 12.5 MG PO ×2 (08:54→20:04)
[2023-10-07] MEDS: ASPIR LOW (ENTERIC COATED) 81 MG PO (08:54)
[2023-10-07] MEDS: QUESTRAN LIGHT/PREVALITE 4 GRAMS PO (08:54)
[2023-10-07] MEDS: VITAMIN D3 (cholecalciferol) 125 MCG PO (08:54)
--- NOTE | 2023-10-07 10:17 | W.PN.HOSP.TC ---
Today's Communication/Plan
-
Awaiting 2D echocardiogram
Not a vascular interventional candidate based on bilateral ischemic embolic origin
Continue present diet with aspiration precautions
Will consult physiatry for mass rehab evaluation
Assessment / Plan
Assessment / Plan
HPI: 77-year-old male with past medical history significant for CAD status post CABG, aortic stenosis status post aortic valve replacement about 3 years ago, esophageal cancer status post surgical resection and subsequent loss of voice,
paroxysmal atrial fibrillation on anticoagulation, dysphagia, hypertension who presents to the emergency room with acute onset of left-sided weakness.
1. Acute CVA
Patient presented with left leg weakness
MRI confirms acute/subacute infarcts in bilateral cerebral and cerebellar hemispheres/seen by vascular based on CTA findings of a 80% carotid bulb stenosis on the right
-Given presentation of bilateral embolic ischemic infarcts no vascular intervention recommended
This is not a Xarelto failure, as patient had to stop his Xarelto for 5 days for his esophageal surgery
Continue aspirin, statin, Xarelto. Carotid ultrasound and echocardiogram pending today
PT recommends acute rehab, consult physiatry be placed today
Cleared for regular diet with thin liquids, continue tube feeding boluses 8 ounces BID at 11 AM and 3 PM as well
2. Troponin Elevation
Appreciate cardiology input, patient does not have chest pain
Patient possibly has acute nonischemic myocardial injury in the setting of stroke
Echocardiogram requested
3. pAFIB -
Continue Xarelto and Coreg
4. GERD
- continue ppi
5. Laryngeal dysfunction - Occured since esophageal surgery
- follow up with occupation therapy
6. Bacteriuria
Urine cultures growing out greater than 100,000 colonies of E. coli, pansensitive
We will treat with Augmentin twice a day for 7 days
DVT prophylaxis�Xarelto
Full code
Total time spent to see the patient on the floor, examine the patient, review data and lab results, discuss treatment plan with patient, nursing staff around 51 minutes.
Physical Exam
General: No acute distress
HEENT: Normocephalic, Atraumatic, EOMI, MMM
Hoarse voice noted
Respiratory: Clear to Auscultation bilaterally
Cardiac: Normal S1/S2, Regular Rate and Rhythm
GI: Soft, Nontender, Nondistended, Normal Bowel Sounds
+J tube
Extremities: No Clubbing, Cyanosis, or Edema
Neuro: Left lower extremity weakness noted
Psych: Calm, Cooperative
Derm: No Visible lesions
Anticipated Discharge: Within 24 hours
Subjective/Interval History
-
Date of Service: October 07, 2023
Some choking and coughing with the applesauce this morning tube feeds were turned off over the weekend
Objective Data
-
Vital Signs:
Vital Signs
Temp Pulse Resp BP Pulse Ox
98 F 62 12 147/72 98
10/07/23 07:00 10/07/23 07:00 10/07/23 07:00 10/07/23 07:00 10/07/23 07:00
I&O
10/06/23 10/07/23 10/08/23
06:59 06:59 06:59
Intake Total 960 / 960 820 / 820
Output Total 650 / 650 575 / 575
Balance 310 / 310 245 / 245
Review of Systems
-
History Source: Patient
Constitutional: Reports No Symptoms
Respiratory: Reports Cough and Wheezing
Abdomen/GI: Reports No Symptoms
Physical Exam
-
General: No Apparent Distress
HEENT: Normocephalic
Respiratory: Rhonchi
Cardiac: Regular Rhythm
GI: Soft
Neuro: Awake, Alert and Oriented
Psych: Calm
Data Reviewed
-
Total Time Spent with Patient (in minutes): 45
Diagnostic Radiology: Report Reviewed by me and Discussed with Physician
CT Scan: Report Reviewed by me (MRI and CT scan suggestive of bilateral embolic infarcts)
Labs: Labs Reviewed by me
--- NOTE | 2023-10-07 12:10 | W.PN.CD ---
Today's Communication / Plan
-
for echo today
In future hope for shorter time off anticoagulation for procedures
Impression / Plan
-
Elevated troponin
- Peak 3.29
- Not clear there were symptoms or signs prompting the blood test
- No obvious CP/dyspnea, etc
- For echo today
- Suspect non NH myocardial injury in setting of CVA
CVA
- in setting of recent appropriate Xarelto hold for esophageal procedure (in setting of cancer)
Esophageal cancer
- S/p surgery, chemotherapy and radiation 2022
Eso stricture
- esophageal dilation and stent placement to assist with stenosis/stricture.
Parox AFib, back on anticoagulation
CAD, prior CABG, stable, w/o angina
S/p Bio AVR
Carotid stenosis:
Subjective: Leg a bit stronger. No CP or dyspnea
Physical Exam
Vital Signs/Labs
Vital Signs
Temp Pulse Resp BP Pulse Ox
98 F 62 12 147/72 98
10/07/23 07:00 10/07/23 07:00 10/07/23 07:00 10/07/23 07:00 10/07/23 07:00
10/04/23 23:02
10/06/23 21:00
PT 25.0 Sec (11.4-14.6) H 10/05/23 04:14
INR 2.28 10/05/23 04:14
APTT 44.1 Sec (23.4-35.0) H 10/04/23 23:02
Magnesium 1.9 mg/dl (1.6-2.3) 10/06/23 21:00
Triglycerides 61 mg/dl (10-149) 10/05/23 04:14
LDL Cholesterol, Calc 34 mg/dl 10/05/23 04:14
VLDL Cholesterol, Calc 12 mg/dl (0-30) 10/05/23 04:14
HDL Cholesterol 55 mg/dl 10/05/23 04:14
LAB Results
10/04/23 10/05/23 10/05/23
23:02 04:14 06:00
Troponin I 0.794 H* 3.290 H* D Cancelled
10/05/23 10/05/23
09:41 17:21
Troponin I 2.250 H* D 0.989 H* D
Physical Exam
Constitutional: No acute distress
Cardiovascular: Rhythm & rate is regular and Pedal edema is absent
Respiratory: Respiratory effort normal and Lungs clear to auscul.
GI: Soft and Distention absent
Neuro/Psych: AO x 3
Data Reviewed
-
Date of Service: October 07, 2023
--- NOTE | 2023-10-07 15:24 | CM ---
Patient off floor, seen in room. PMR consulted, referral sent to [facility]. CM will continue to follow for discharge planning needs.
Plan; PMR consulted, awaiting bed availability from [facility].
--- NOTE | 2023-10-07 15:27 | CON.MD ---
Documented by User: Mile Corral PA-C 10/08/23 09:17
Consultation - Medical
-
Referring Provider: Kole Espana
Chief Complaint: CVA
History of Present Illness: This is a 77-year-old male with PMH of (prior CVA in 2014 with complete resolution of symptoms, CAD s/p CABG, aortic stenosis, s/p aortic valve replacement 3 years ago, esophageal cancer, s/p resection, hemotherapy and
radiation 2022 and subsequent loss of voice, paroxysmal atrial fibrillation on Xarelto, dysphagia, hypertension) who presented to the emergency room on with acute onset left-sided weakness in his leg. He denied any facial drooping, mental status
change, numbness, tingling. He had stopped his Xarelto for 5 days prior to dilation and stenting of esophagus. CT scan of head - No intra- or extra-axial mass, hemorrhage, or fluid collection. Head/neck CTA: Bilateral carotid bifurcation
atherosclerosis contributing to 80% stenosis of the right carotid bulb and 50% stenosis of the left carotid bulb. MRI of the brain: confirms acute/subacute infarcts in bilateral cerebral and cerebellar hemispheres. Patient was not a candidate for
tPA due to his anticoagulation status. Patient was hemodynamically stable.
Vascular surgery: no surgical intervention at this time given bilateral nature of infarcts
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 No suspicious enhancement.
Multilevel degenerative changes of the cervical spine with moderate spinal canal and moderate to severe neural foraminal stenosis at several levels, worst C4-5, C5-6, C2-3
Past Medical History: CAD s/p CABG, aortic stenosis, s/p aortic valve replacement 3 years ago, esophageal cancer, s/p resection and subsequent loss of voice, paroxysmal atrial fibrillation on Xarelto, dysphagia, hypertension
Procedure History: CABG, aortic valve replacement, esophageal resection, esophageal dilation and stent placement to assist with stenosis/stricture.
Family History: non contributory
Social History:
Functional Level Premorbidly: Independent with all activities
Functional Level Currently: Transfers- Min assist, Bed mobility- Min assist with moving left leg, ambulates with Rolling walker 35 ft x 1 with min assist.
Tobacco: former smoker
Alcohol: Denies
Drug use: Denies
Lives with: Spouse
24-hour assistance available:
Number of floors: multi-level
# steps to enter: none
# steps to second floor: does not use 2nd floor.
Potential First floor set up:yes
Driving: yes
Occupation: retired
�
Allergies:
Allergy/AdvReac Type Severity Reaction Status Date / Time
No Known Allergies Allergy Verified 10/04/23 23:42
Review of Systems:
Constitutional: (x) Normal _
Eye: (x) Normal _
Ear/Nose/Throat: (x) Normal _
Respiratory: (x) Normal _
Cardiovascular: (x) Normal _
Gastrointestinal: (x)h/o esophageal cancer, s/p esophageal dilation and stenting
Genitourinary: (x) Normal _
Musculoskeletal: (x) Normal _
Integumentary: (x) Normal _
Neurologic: (x) cva
Psychiatric: (x) Normal _
Endocrine: (x) Normal _
Hematologic/Lymphatic: (x) Normal _
Allergic/Immunologic: (x) Normal _
Medications:
Active Current Visit Medication List
Category Date Time Status
Acetaminophen [Tylenol/Feverall] Med 10/05/23 03:39 Active
650 mg RECTAL Q4HPRN PRN
Acetaminophen [Tylenol] Med 10/05/23 03:39 Active
650 mg PO Q4HPRN PRN
Amoxicillin 875 mg/Clav 125 mg [Augmentin 875 mg/125 mg Med 10/06/23 16:35 Active
]
1 tablet PO Q12
Aspirin Low Dose EC [Aspir Low (Enteric Coated)] Med 10/05/23 08:00 Active
81 mg PO DAILY
Atorvastatin [Lipitor] Med 10/05/23 22:00 Active
80 mg PO HS
Carvedilol [Coreg] Med 10/05/23 08:00 Active
12.5 mg PO BID
Cholecalciferol (Vitamin D3) [VITAMIN D3 ( Med 10/05/23 08:00 Active
cholecalciferol)]
125 mcg PO DAILY
Cholestyramine [Questran] Med 10/08/23 09:00 Active
4 gram PO DAILY@0900
Flush (0.9% Sodium Chloride) [Flush (Nss)] Med 10/05/23 04:00 Active
See Dose Instructions IV PER PROTOCOL
Magnesium Oxide Med 10/05/23 20:55 Active
500 mg PO DAILY
Pantoprazole [Protonix] Med 10/05/23 08:00 Active
40 mg PO DAILY
Rivaroxaban [Xarelto] Med 10/05/23 08:00 Active
20 mg PO DAILY
Vitals:
Temp Pulse Resp BP Pulse Ox
97.8 F 64 16 128/60 98
10/08/23 07:15 10/08/23 07:15 10/08/23 07:15 10/08/23 07:15 10/08/23 07:15
Height 6 ft 0.5 in
Actual Weight 69.428 kg
Body Mass Index (BMI) 20.5
Physical Exam:
General Appearance/Observation: Well-developed, well-nourished individual in no apparent distress.
Pain/Comfort Assessment: Denies
Mood/Affect: Appropriate, pleasant
Integumentary/Operative Site:
�� Pressure Ulcer Evaluation: absent over heels. Dry skin
��
�� Other Type of Wound: J tube noted
��
Eyes: Conjunctiva/Lids: normal ��� Pupils: pupils equal round and reactive to light and Accommodation
Ears/Nose/Throat: oral mucosa moist,� throat clear.������������ Lips/Teeth/Gums: normal
Neck: No muscle spasm or tenderness
Cardiovascular: Heart: regular, murmur
Pulses: dorsalis pedis 2+ bilaterally
Respiratory: Respiratory Effort/Chest Expansion: normal ������� Auscultation: Clear to auscultation bilaterally
Gastrointestinal: abdomen not tender, no distension, normal abdominal bowel sounds
Jejunostomy tube
Genitourinary: No Groves
Extremities: Edema: None Cyanosis: None Trophic changes: None
Neurology Exam:
Orientation: Alert, Oriented to self, Time, Place
Memory: Intact for immediate medical concerns
Higher cortical function
Repetition: Intact
Comprehension: Intact
Two step command: Intact
Naming: Intact
Cranial Nerves:
�� CNII: Pupillary light reflex: Intact��� Visual Field: Intact
�� CN III, IV, : Extraocular muscles: Intact
�� CN V: Facial Sensation at Forehead: Intact, Maxilla: Intact, Mandible: Intact
�� CN VII: Facial movement: lips slightly deviated to the right, more noticeable with smiling
�� CN VIII: Hearing: Normal
�� CN IX/X: Speech & swallow: hoarse, wet, hypophonic Position of Uvula: Midline
�� CN XI: Shoulder shrug: Symmetric
�� CN XII: Tongue protrusion: Midline
Sensory:
�� Light touch: Intact in bilateral upper and lower extremities
��
Reflexes:
�� Biceps: 2+ bilaterally
�� Brachioradialis: 2+ bilaterally
�� Triceps: 2+ bilaterally
�� Patellar: 4+ bilaterally
�� Achilles: 2+ rigtht and absent left
�� Babinski: upgoing bilaterally
�� Clonus: None
�� Hector: positive on right
Cerebellar: Dysmetria/Ataxia: None
Musculoskeletal:
Motor: (Manual muscle scale 0-5)
Muscle SA EF WE EE FF FA HF KE DF EHL PF
Right� 5 5 5 5 5 5 5 5 5 5 5
Left 5 5 5 5 5 5 3- 2 1 1 1
Unable to extend the left knee.
Tone: Normal in all extremities
Range of Motion: Passively within normal limits in all extremities, except increased tone or stiffness in left knee
Lab Results
Labs
WBC 7.4 10^3/uL (4.8-10.8) 10/04/23 23:
RBC 4.07 10^6/uL (4.70-6.10) L 10/04/23 23:02
Hgb 12.4 g/dL (13.0-18.0) L 10/04/23:
Hct 36.2 % (39.0-52.0) L 10/04/23:
MCV 88.9 fL (80.0-94.0) 10/04/23:
MCH 30.5 pg (27.0-31.0) 10/04/23:
MCHC 34.3 g/dL (33.0-37.0) 10/04/23 23:
RDW 15.4 % (11.5-14.5) H 10/04/23:
Plt Count 81 10^3/uL (130-400) L 10/04/23:
MPV 11.6 fL (7.4-10.4) H 10/04/23 23:02
Abs Immat Gran (auto) 0.0 10^3/uL (0-0.05) 10/04/23:
Absolute Neuts (auto) 5.5 10^3/uL (1.4-6.5) 10/04/23:
Absolute Lymphs (auto) 0.8 10^3/uL (1.2-3.4) L 10/04/23 23:02
Absolute Monos (auto) 1.0 10^3/uL (0.1-0.6) H 10/04/23:02
Absolute Eos (auto) 0.1 10^3/uL (0-0.7) 10/04/23:
Absolute Basos (auto) 0.0 10^3/uL (0-0.2) 10/04/23 23:
Immature Gran % 0.3 % (0-0.5) 10/04/23 23:02
Neutrophils % 73.9 % (42.2-75.2) 10/04/23 23:02
Lymphocytes % 10.7 % (20.5-51.1) L 10/04/23 23:02
Monocytes % 13.1 % (1.7-9.3) H 10/04/23 23:02
Eosinophils % 1.5 % (0-6) 10/04/23 23:02
Basophils % 0.5 % (0-2) 10/04/23 23:02
Nucleated RBC % 0 % (-) 10/04/23 23:02
PT 25.0 Sec (11.4-14.6) H 10/05/23 04:14
INR 2.28 10/05/23 04:14
APTT 44.1 Sec (23.4-35.0) H 10/04/23 23:02
Sodium 136 mmol/L (135-145) 10/06/23 21:00
Potassium 3.8 mmol/L (3.5-5.1) 10/06/23 21:00
Chloride 101 mmol/L (98-107) 10/06/23 21:00
Carbon Dioxide 29 mmol/L (22-30) 10/06/23 21:00
BUN 15 mg/dl (9-20) 10/06/23 21:00
Creatinine 0.5 mg/dL (0.7-1.3) L 10/06/23 21:00
Estimated Creat Clear 103 ml/min 10/06/23 21:00
eGFR > 60.00 10/06/23 21:00
Glucose 87 mg/dl (70-99) 10/06/23 21:00
Calcium 8.8 mg/dl (8.4-10.2) 10/06/23 21:00
Magnesium 1.9 mg/dl (1.6-2.3) 10/06/23 21:00
Total Bilirubin 0.9 mg/dl (0.2-1.3) 10/04/23 23:02
AST 35 U/L (17-59) 10/04/23 23:02
ALT 26 U/L (0-50) 10/04/23 23:02
Alkaline Phosphatase 108 U/L (38-126) 10/04/23 23:02
Troponin I 0.989 ng/ml H* D 10/05/23 17:21
Total Protein 5.9 g/dl (6.3-8.2) L 10/04/23 23:02
Albumin 3.1 g/dl (3.5-5.0) L 10/04/23 23:02
Triglycerides 61 mg/dl (10-149) 10/05/23 04:14
Total Cholesterol 101 mg/dl (50-199) 10/05/23 04:14
LDL Cholesterol, Calc 34 mg/dl 10/05/23 04:14
VLDL Cholesterol, Calc 12 mg/dl (0-30) 10/05/23 04:14
HDL Cholesterol 55 mg/dl 10/05/23 04:14
Urine Color Yellow 10/04/23 23:02
Urine Clarity Clear (Clear) 10/04/23 23:02
Urine pH 5.0 (5.0-9.0) 10/04/23 23:02
Ur Specific [place] 1.020 (<1.030) 10/04/23 23:02
Urine Ketones Trace (Negative) A 10/04/23 23:02
Ur Occult Blood Reflex Negative (Negative) 10/04/23 23:02
Urine Nitrite (Reflex) Negative (Negative) 10/04/23 23:02
Urine Bilirubin Negative (Negative) 10/04/23 23:02
Urine Urobilinogen Negative (Neg - 1+) 10/04/23 23:02
Leukocyte Esterase Rfl Trace (Negative) A 10/04/23 23:02
Urine RBC 0-2 /HPF (0-2) 10/04/23 23:02
Urine WBC (Reflex) 16-20 /HPF (0-5) A 10/04/23 23:02
Ur Squamous Epith Cells 21-25 /LPF (Few) 10/04/23 23:02
Urine Bacteria (Reflex) Many (Negative) A 10/04/23 23:02
Urine Glucose Negative (Negative) 10/04/23 23:02
Urine Albumin (Reflex) Negative (Neg - Trace) 10/04/23 23:02
POC Glucose 93 mg/dl (70-99) 10/04/23 23:00
Diagnostic Results: as per HPI
Assessment This is a 77-year-old male with PMH of (prior CVA in 2014 with complete resolution of symptoms, CAD s/p CABG, aortic stenosis, s/p aortic valve replacement 3 years ago, esophageal cancer, s/p resection, hemotherapy and radiation 2022
and subsequent loss of voice, paroxysmal atrial fibrillation on Xarelto, dysphagia, hypertension) who presented to the emergency room on with acute onset left-sided weakness that started in his leg. Head/neck CTA: Bilateral carotid bifurcation
atherosclerosis contributing to 80% stenosis of the right carotid bulb and 50% stenosis of the left carotid bulb. MRI of the brain: confirms acute/subacute infarcts in bilateral cerebral and cerebellar hemispheres. Patient was not a candidate for
tPA due to his anticoagulation status.
Plan
PT/OT to increase independence with ADLs, improve balance, coordination, endurance, strength, mobility, community reintegration, decreased burden of care on others and family education.
CVA: Secondary prophylaxis with aspirin 81 mg daily, atorvastatin 80 daily, and carvedilol 12.5 twice daily (SBP less than 180 and diastolic less than 100 to participate with therapy for ischemic stroke). Continue to monitor neurologic status.
Left Lower Extremity hemiparesis: High risk for falls and sliding out of chair/bed. Safety reinforced.
Dysphagia/Esophageal stricture:Post recent dilation and stenting- speech evaluation, aspiration precautions.�On solids and thin liquids. Gets J tube feeds twice /day at home. Not while in hospital. Patient plans on stopping feeds at some point.
Dysarthria: speech evaluation
HTN: continue carvedilol 12.5 mg twice daily monitor closely
HLD: Atorvastatin 80 mg at bedtime
Coronary artery disease : s/p CABG- Aspirin, statin, beta-brennan
Troponin Elevation : per cardio: Not clear there were symptoms or signs prompting the blood test. Patient possibly has acute nonischemic myocardial injury in the setting of stroke. Awaiting echo
Paroxismal Atrial fibrillation:� Continue anticoagulation and rate control medications.������������������������������������������
��������
Anemia: Hgb 12.4. Likely multifactorial.� Continue to monitor.
Thrombocytopenia: 81- Continue to monitor. If platelets less than 50,000 recommend keeping therapies to bedside. If platelets less than 20,000 will use further caution with activity levels and hold therapy for platelets less than 10,000.
Psych: Psychology consult.� Monitor mood, adjust medications as needed.
Skin: monitor for pressure sores/rashes/lesions.
Pain: acetaminophen as needed.
Bowel: Colace and Senna, PRN bisacodyl.
Bladder: Time void, PVRs, PRN straight cath.
GI Prophylaxis: Pantoprazole
DVT Prophylaxis: Mechanical and Xarelto 20mg qd
Pulmonary: Incentive spirometry
Safety: Continue to reinforce assistance with all transfers.
Code Status:� Full code
Dispo (date/plan/equipment needs): Home with family care.� Social history reviewed.
Functional and Medical Goals: Modified Independent with ADL�s, ambulation, transfers
Discharge Destination: Acute inpatient rehabilitation
Summary of recommendations: Patient would benefit from acute inpatient rehabilitation given his current function of Transfer- Min assist, Bed mobility- Min assist with moving left leg, ambulates with Rolling walker 35 ft x 1 with min assist for
PT/OT/Speech to increase independence with ADLs, improve balance, coordination, endurance, strength, mobility, speech, community reintegration, decreased burden of care on others and family education. Would appreciate cardiology input regarding
elevated troponin, echo results, and plan prior to discharge/transfer.
CVA/Ambulatory Dysfunction: Secondary prophylaxis with aspirin 81 mg daily, atorvastatin 80 daily, and carvedilol 12.5 twice daily (SBP less than 180 and diastolic less than 100 to participate with therapy for ischemic stroke). Continue to monitor
neurologic status.
Left nondominant hemiparesis: High risk for falls and sliding out of chair/bed. Safety reinforced.
- Avoid using affected arm to help lift or pull patient as this will cause trauma to the shoulder.
Dysphagia/esophageal stricture: speech evaluation, oral care protocol, chlorhexidine rinse after meals and HS, aspiration precautions.� Advance diet as tolerated.
Troponin Elevation : per cardio: Not clear there were symptoms or signs prompting the blood test. Patient possibly has acute no nonischemic myocardial injury in the setting of stroke. Awaiting echo. Appreciate cardiology input regarding treatment
assessment/plan prior to discharge/transfer.
HTN: continue carvedilol 12.5 p.o. twice daily, monitor closely.
Pain: acetaminophen as needed.
Bowel: Colace and Senna, PRN bisacodyl.
GI Prophylaxis: Pantoprazole
DVT Prophylaxis: Mechanical and Xarelto 20mg qd
Pulmonary: Incentive spirometry
Safety: Continue to reinforce assistance with all transfers.
Thank you for allowing me to care for your patient. Please contact me with any questions or concerns.
This note was dictated using a voice recognition system. Please excuse any typographical errors from crime scene specialist. If you believe there are any discrepancies, please notify our office.

Documented by User: Austin Vargas MD 10/08/23 11:51
Consultation - Medical
-
Referring Provider: Kole Espana
Chief Complaint: CVA
History of Present Illness: This is a 77-year-old right-handed male with PMH of (prior CVA in 2014 with complete resolution of symptoms, CAD s/p CABG, aortic stenosis, s/p aortic valve replacement 3 years ago, esophageal cancer, s/p resection,
hemotherapy and radiation 2022 and subsequent loss of voice, paroxysmal atrial fibrillation on Xarelto, dysphagia, hypertension) who presented to the emergency room on with acute onset left-sided weakness in his leg. He denied any facial
drooping, mental status change, numbness, tingling. He had stopped his Xarelto for 5 days prior to dilation and stenting of esophagus. CT scan of head - No intra- or extra-axial mass, hemorrhage, or fluid collection. Head/neck CTA: Bilateral
carotid bifurcation atherosclerosis contributing to 80% stenosis of the right carotid bulb and 50% stenosis of the left carotid bulb. MRI of the brain: confirms acute/subacute infarcts in bilateral cerebral and cerebellar hemispheres. Patient was
not a candidate for tPA due to his anticoagulation status. Patient was hemodynamically stable.
Vascular surgery: no surgical intervention at this time given bilateral nature of infarcts
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 No suspicious enhancement.
Multilevel degenerative changes of the cervical spine with moderate spinal canal and moderate to severe neural foraminal stenosis at several levels, worst C4-5, C5-6, C2-3
Past Medical History: CAD s/p CABG, aortic stenosis, s/p aortic valve replacement 3 years ago, esophageal cancer, s/p resection and subsequent loss of voice, paroxysmal atrial fibrillation on Xarelto, dysphagia, hypertension
Procedure History: CABG, aortic valve replacement, esophageal resection, esophageal dilation and stent placement to assist with stenosis/stricture.
Family History: non contributory
Social History:
Functional Level Premorbidly: Independent with all activities
Functional Level Currently: Transfers- Min assist, Bed mobility- Min assist with moving left leg, ambulates with Rolling walker 35 ft x 1 with min assist.
Tobacco: former smoker
Alcohol: Denies
Drug use: Denies
Lives with: Spouse
24-hour assistance available: Yes
Number of floors: multi-level
# steps to enter: none
# steps to second floor: does not use 2nd floor.
Potential First floor set up:yes
Driving: yes
Occupation: retired
Allergies:
Allergy/AdvReac Type Severity Reaction Status Date / Time
No Known Allergies Allergy Verified 10/04/23 23:42
Review of Systems:
Constitutional: (x) abNormal _fatigue
Eye: (x) Normal _
Ear/Nose/Throat: (x) Normal _
Respiratory: (x) Normal _
Cardiovascular: (x) Normal _
Gastrointestinal: (x)h/o esophageal cancer, s/p esophageal dilation and stenting. Gets to feedings in the afternoon and evening. Eats limited oral diet otherwise
Genitourinary: (x) Normal _
Musculoskeletal: (x) Normal _
Integumentary: (x) Normal _
Neurologic: (x) cva
Psychiatric: (x) Normal _
Endocrine: (x) Normal _
Hematologic/Lymphatic: (x) Normal _
Allergic/Immunologic: (x) Normal _
Medications:
Active Current Visit Medication List
Category Date Time Status
Acetaminophen [Tylenol/Feverall] Med 10/05/23 03:39 Active
650 mg RECTAL Q4HPRN PRN
Acetaminophen [Tylenol] Med 10/05/23 03:39 Active
650 mg PO Q4HPRN PRN
Amoxicillin 875 mg/Clav 125 mg [Augmentin 875 mg/125 mg Med 10/06/23 16:35 Active
]
1 tablet PO Q12
Aspirin Low Dose EC [Aspir Low (Enteric Coated)] Med 10/05/23 08:00 Active
81 mg PO DAILY
Atorvastatin [Lipitor] Med 10/05/23 22:00 Active
80 mg PO HS
Carvedilol [Coreg] Med 10/05/23 08:00 Active
12.5 mg PO BID
Cholecalciferol (Vitamin D3) [VITAMIN D3 ( Med 10/05/23 08:00 Active
cholecalciferol)]
125 mcg PO DAILY
Cholestyramine [Questran] Med 10/08/23 09:00 Active
4 gram PO DAILY@0900
Flush (0.9% Sodium Chloride) [Flush (Nss)] Med 10/05/23 04:00 Active
See Dose Instructions IV PER PROTOCOL
Magnesium Oxide Med 10/05/23 20:55 Active
500 mg PO DAILY
Pantoprazole [Protonix] Med 10/05/23 08:00 Active
40 mg PO DAILY
Rivaroxaban [Xarelto] Med 10/05/23 08:00 Active
20 mg PO DAILY
Vitals:
Temp Pulse Resp BP Pulse Ox
97.8 F 64 16 128/60 98
10/08/23 07:15 10/08/23 07:15 10/08/23 07:15 10/08/23 07:15 10/08/23 07:15
Height 6 ft 0.5 in
Actual Weight 69.428 kg
Body Mass Index (BMI) 20.5
Physical Exam:
General Appearance/Observation: Well-developed, well-nourished individual in no apparent distress.
Pain/Comfort Assessment: Denies
Mood/Affect: Appropriate, pleasant
Integumentary/Operative Site:
�� Pressure Ulcer Evaluation: absent over heels. Dry skin
�� �� Other Type of Wound: J tube noted
��
Eyes: Conjunctiva/Lids: normal ��� Pupils: pupils equal round and reactive to light and Accommodation
Ears/Nose/Throat: oral mucosa moist,� throat clear.������������ Lips/Teeth/Gums: normal
Neck: No muscle spasm or tenderness
Cardiovascular: Heart: regular, murmur
Pulses: dorsalis pedis 2+ bilaterally
Respiratory: Respiratory Effort/Chest Expansion: normal ������� Auscultation: Clear to auscultation bilaterally
Gastrointestinal: abdomen not tender, no distension, normal abdominal bowel sounds
Jejunostomy tube
Genitourinary: No Groves
Extremities: Edema: None Cyanosis: None Trophic changes: None
Neurology Exam:
Orientation: Alert, Oriented to self, Time, Place
Memory: Intact for immediate medical concerns
Higher cortical function
Repetition: Intact
Comprehension: Intact
Two step command: Intact
Naming: Intact
Cranial Nerves:
�� CNII: Pupillary light reflex: Intact��� Visual Field: Intact
�� CN III, IV, : Extraocular muscles: Intact
�� CN V: Facial Sensation at Forehead: Intact, Maxilla: Intact, Mandible: Intact
�� CN VII: Facial movement: lips slightly deviated to the right, more noticeable with smiling
�� CN VIII: Hearing: Normal
�� CN IX/X: Speech & swallow: hoarse, wet, hypophonic Position of Uvula: Midline
�� CN XI: Shoulder shrug: Symmetric
�� CN XII: Tongue protrusion: Midline
Sensory:
�� Light touch: Intact in bilateral upper and lower extremities
��
Reflexes:
�� Biceps: 2+ bilaterally
�� Brachioradialis: 2+ bilaterally
�� Triceps: 2+ bilaterally
�� Patellar: 4+ bilaterally
�� Achilles: 2+ rigtht and absent left
�� Babinski: upgoing bilaterally
�� Clonus: None
�� Hector: positive on right
Cerebellar: Dysmetria/Ataxia: None
Musculoskeletal: Motor: (Manual muscle scale 0-5)
Muscle SA EF WE EE FF FA HF KE DF EHL PF
Right� 5 5 5 5 5 5 5 5 5 5 5
Left 2+ 3+ 4 2+ 4 4 3- 2 0 0 1
Unable to extend the left knee.
Tone: Normal in all extremities
Range of Motion: Passively within normal limits in all extremities, except increased tone or stiffness in left knee
Lab Results
Labs
WBC 7.4 10^3/uL (4.8-10.8) 10/04/23 23:02
RBC 4.07 10^6/uL (4.70-6.10) L 10/04/23 23:02
Hgb 12.4 g/dL (13.0-18.0) L 10/04/23 23:02
Hct 36.2 % (39.0-52.0) L 10/04/23:
MCV 88.9 fL (80.0-94.0) 10/04/23:
MCH 30.5 pg (27.0-31.0) 10/04/23:
MCHC 34.3 g/dL (33.0-37.0) 10/04/23 23:
RDW 15.4 % (11.5-14.5) H 10/04/23:
Plt Count 81 10^3/uL (130-400) L 10/04/23:
MPV 11.6 fL (7.4-10.4) H 10/04/23:
Abs Immat Gran (auto) 0.0 10^3/uL (0-0.05) 10/04/23:
Absolute Neuts (auto) 5.5 10^3/uL (1.4-6.5) 10/04/23:
Absolute Lymphs (auto) 0.8 10^3/uL (1.2-3.4) L 10/04/23 23:02
Absolute Monos (auto) 1.0 10^3/uL (0.1-0.6) H 10/04/23:02
Absolute Eos (auto) 0.1 10^3/uL (0-0.7) 10/04/23:
Absolute Basos (auto) 0.0 10^3/uL (0-0.2) 10/04/23:
Immature Gran % 0.3 % (0-0.5) 10/04/23:
Neutrophils % 73.9 % (42.2-75.2) 10/04/23:
Lymphocytes % 10.7 % (20.5-51.1) L 10/04/23:02
Monocytes % 13.1 % (1.7-9.3) H 10/04/23:
Eosinophils % 1.5 % (0-6) 10/04/23:
Basophils % 0.5 % (0-2) 10/04/23 23:02
Nucleated RBC % 0 % (-) 10/04/23 23:02
PT 25.0 Sec (11.4-14.6) H 10/05/23 04:14
INR 2.28 10/05/23 04:14
APTT 44.1 Sec (23.4-35.0) H 10/04/23 23:02
Sodium 136 mmol/L (135-145) 10/06/23 21:00
Potassium 3.8 mmol/L (3.5-5.1) 10/06/23 21:00
Chloride 101 mmol/L (98-107) 10/06/23 21:00
Carbon Dioxide 29 mmol/L (22-30) 10/06/23 21:00
BUN 15 mg/dl (9-20) 10/06/23 21:00
Creatinine 0.5 mg/dL (0.7-1.3) L 10/06/23 21:00
Estimated Creat Clear 103 ml/min 10/06/23 21:00
eGFR > 60.00 10/06/23 21:00
Glucose 87 mg/dl (70-99) 10/06/23 21:00
Calcium 8.8 mg/dl (8.4-10.2) 10/06/23 21:00
Magnesium 1.9 mg/dl (1.6-2.3) 10/06/23 21:00
Total Bilirubin 0.9 mg/dl (0.2-1.3) 10/04/23 23:02
AST 35 U/L (17-59) 10/04/23 23:02
ALT 26 U/L (0-50) 10/04/23 23:02
Alkaline Phosphatase 108 U/L (38-126) 10/04/23 23:02
Troponin I 0.989 ng/ml H* D 10/05/23 17:21
Total Protein 5.9 g/dl (6.3-8.2) L 10/04/23 23:02
Albumin 3.1 g/dl (3.5-5.0) L 10/04/23 23:02
Triglycerides 61 mg/dl (10-149) 10/05/23 04:14
Total Cholesterol 101 mg/dl (50-199) 10/05/23 04:14
LDL Cholesterol, Calc 34 mg/dl 10/05/23 04:14
VLDL Cholesterol, Calc 12 mg/dl (0-30) 10/05/23 04:14
HDL Cholesterol 55 mg/dl 10/05/23 04:14
Urine Color Yellow 10/04/23 23:02
Urine Clarity Clear (Clear) 10/04/23 23:02
Urine pH 5.0 (5.0-9.0) 10/04/23 23:02
Ur Specific [place] 1.020 (<1.030) 10/04/23 23:02
Urine Ketones Trace (Negative) A 10/04/23 23:02
Ur Occult Blood Reflex Negative (Negative) 10/04/23 23:02
Urine Nitrite (Reflex) Negative (Negative) 10/04/23 23:02
Urine Bilirubin Negative (Negative) 10/04/23 23:02
Urine Urobilinogen Negative (Neg - 1+) 10/04/23 23:02
Leukocyte Esterase Rfl Trace (Negative) A 10/04/23 23:02
Urine RBC 0-2 /HPF (0-2) 10/04/23 23:02
Urine WBC (Reflex) 16-20 /HPF (0-5) A 10/04/23 23:02
Ur Squamous Epith Cells 21-25 /LPF (Few) 10/04/23 23:02
Urine Bacteria (Reflex) Many (Negative) A 10/04/23 23:02
Urine Glucose Negative (Negative) 10/04/23 23:02
Urine Albumin (Reflex) Negative (Neg - Trace) 10/04/23 23:02
POC Glucose 93 mg/dl (70-99) 10/04/23 23:00
Diagnostic Results: as per HPI
Assessment This is a 77-year-old male with PMH of (prior CVA in 2014 with complete resolution of symptoms, CAD s/p CABG, aortic stenosis, s/p aortic valve replacement 3 years ago, esophageal cancer, s/p resection, hemotherapy and radiation 2022
and subsequent loss of voice, paroxysmal atrial fibrillation on Xarelto, dysphagia, hypertension) who presented to the emergency room on with acute onset left-sided weakness that started in his leg. Head/neck CTA: Bilateral carotid bifurcation
atherosclerosis contributing to 80% stenosis of the right carotid bulb and 50% stenosis of the left carotid bulb. MRI of the brain: confirms acute/subacute infarcts in bilateral cerebral and cerebellar hemispheres. Patient was not a candidate for
tPA due to his anticoagulation status.
Plan
PT/OT to increase independence with ADLs, improve balance, coordination, endurance, strength, mobility, community reintegration, decreased burden of care on others and family education.
CVA: Secondary prophylaxis with aspirin 81 mg daily, atorvastatin 80 daily, and carvedilol 12.5 twice daily (SBP less than 180 and diastolic less than 100 to participate with therapy for ischemic stroke). Continue to monitor neurologic status.
Left Lower Extremity hemiparesis: High risk for falls and sliding out of chair/bed. Safety reinforced.
Dysphagia/Esophageal stricture:Post recent dilation and stenting- speech evaluation, aspiration precautions.�On solids and thin liquids. Gets J tube feeds twice /day at home. Not while in hospital. Patient plans on stopping feeds at some point.
Dysarthria: speech evaluation
HTN: continue carvedilol 12.5 mg twice daily monitor closely
HLD: Atorvastatin 80 mg at bedtime
Coronary artery disease: History of CABG- Aspirin, statin, beta-brennan
Troponin Elevation : per cardio: Not clear there were symptoms or signs prompting the blood test. Patient possibly has acute nonischemic myocardial injury in the setting of stroke. Awaiting echo
Paroxismal Atrial fibrillation:� Continue anticoagulation and rate control medications.������������������������������������������
Anemia: Hgb 12.4. Likely multifactorial.� Continue to monitor.
Thrombocytopenia: 81- Continue to monitor. If platelets less than 50,000 recommend keeping therapies to bedside. If platelets less than 20,000 will use further caution with activity levels and hold therapy for platelets less than 10,000.
Psych: Psychology consult.� Monitor mood, adjust medications as needed.
Skin: monitor for pressure sores/rashes/lesions.
Pain: acetaminophen as needed.
Bowel: Colace and Senna, PRN bisacodyl.
Bladder: Time void, PVRs, PRN straight cath.
GI Prophylaxis: Pantoprazole
DVT Prophylaxis: Mechanical and Xarelto 20mg qd
Pulmonary: Incentive spirometry
Safety: Continue to reinforce assistance with all transfers.
Code Status:� Full code
Dispo (date/plan/equipment needs): Home with family care.� Social history reviewed.
Functional and Medical Goals: Modified Independent with ADL�s, ambulation, transfers
Discharge Destination: Acute inpatient rehabilitation
Attending Statement:
I saw and examined the patient today. Reviewed care plan with patient, therapy, nursing, and physician operations assistant. I agree with the above subjective and physical exam, and plan as documented by ALEENA Corral with adjustments made as necessary.
A total of 60 minutes were spent with the patient preparing for the evaluation, obtaining history, performing examination and evaluation, counseling, data review, case management, care coordination, order selector, and EMR documentation.
Summary of recommendations: Patient would benefit from acute inpatient rehabilitation given his current function of Transfer- Min assist, Bed mobility- Min assist with moving left leg, ambulates with Rolling walker 35 ft x 1 with min assist for
PT/OT/Speech to increase independence with ADLs, improve balance, coordination, endurance, strength, mobility, speech, community reintegration, decreased burden of care on others and family education.
CVA/Ambulatory Dysfunction: Secondary prophylaxis with aspirin 81 mg daily, rivaroxaban, atorvastatin 80 daily, and carvedilol 12.5 twice daily (SBP less than 180 and diastolic less than 100 to participate with therapy for ischemic stroke). Continue
to monitor neurologic status.
Left nondominant hemiparesis: High risk for falls and sliding out of chair/bed. Safety reinforced.
- Avoid using affected arm to help lift or pull patient as this will cause trauma to the shoulder.
Dysphagia/esophageal stricture: speech evaluation, oral care protocol, chlorhexidine rinse after meals and HS, aspiration precautions.� Advance diet as tolerated.
Troponin Elevation : per cardio: Not clear there were symptoms or signs prompting the blood test. Patient possibly has acute no nonischemic myocardial injury in the setting of stroke. Awaiting echo. Appreciate cardiology input regarding treatment
assessment/plan prior to discharge/transfer.
HTN: continue carvedilol 12.5 p.o. twice daily, monitor closely.
Pain: acetaminophen as needed.
Bowel: Colace and Senna, PRN bisacodyl.
GI Prophylaxis: Pantoprazole
DVT Prophylaxis: Mechanical and Xarelto 20mg qd
Pulmonary: Incentive spirometry
Safety: Continue to reinforce assistance with all transfers.
Thank you for allowing me to care for your patient. Please contact me with any questions or concerns.
[2023-10-07] MEDS: LIPITOR 80 MG PO (21:16)
[2023-10-08 03:45] VITALS: BP 138/58
[2023-10-08 07:15] VITALS: BP 128/60
[2023-10-08] MEDS: PROTONIX 40 MG PO (07:24)
--- NOTE | 2023-10-08 08:17 | W.PN.UPDATE ---
Update Note
Progress Note Update
Carotid duplex results reviewed. Right sided moderate 50-69% stenosis, left side <50%. Again, given bilaterality of infarcts on MRI, favor embolic source rather than isolated to right carotid as source of symptoms. Can f/u in office in 1 month
to establish/continue surveillance of R carotid stenosis.
--- NOTE | 2023-10-08 08:59 | W.PN.CD ---
Today's Communication / Plan
-
for echo today => if echo unremarkable cardiology will sign off
In future hope for shorter time off anticoagulation for procedures
Impression / Plan
-
Elevated troponin
- Peak 3.29
- Not clear there were symptoms or signs prompting the blood test
- No obvious CP/dyspnea, etc
- Echo will be ordered for today
- Suspect non MN myocardial injury in setting of CVA
CVA
- in setting of recent appropriate Xarelto hold for esophageal procedure (in setting of cancer)
Esophageal cancer
- S/p surgery, chemotherapy and radiation 2022
Eso stricture
- esophageal dilation and stent placement to assist with stenosis/stricture.
Parox AFib, back on anticoagulation
CAD, prior CABG, stable, w/o angina
S/p Bio AVR
Carotid stenosis => vascular suspects carotid not the etiology of bilateral infarcts
Subjective: Leg a bit stronger. No CP or dyspnea
Physical Exam
Vital Signs/Labs
Vital Signs
Temp Pulse Resp BP Pulse Ox
97.8 F 64 16 128/60 98
10/08/23 07:15 10/08/23 07:15 10/08/23 07:15 10/08/23 07:15 10/08/23 07:15
10/04/23 23:02
10/06/23 21:00
PT 25.0 Sec (11.4-14.6) H 10/05/23 04:14
INR 2.28 10/05/23 04:14
APTT 44.1 Sec (23.4-35.0) H 10/04/23 23:02
Magnesium 1.9 mg/dl (1.6-2.3) 10/06/23 21:00
Triglycerides 61 mg/dl (10-149) 10/05/23 04:14
LDL Cholesterol, Calc 34 mg/dl 10/05/23 04:14
VLDL Cholesterol, Calc 12 mg/dl (0-30) 10/05/23 04:14
HDL Cholesterol 55 mg/dl 10/05/23 04:14
LAB Results
10/05/23 10/05/23
09:41 17:21
Troponin I 2.250 H* D 0.989 H* D
Physical Exam
Constitutional: No acute distress
EENT: Anicteric
Cardiovascular: Rhythm & rate is regular
Respiratory: Respiratory effort normal
GI: Soft
Neuro/Psych: Alert
Data Reviewed
-
Date of Service: October 08, 2023
[2023-10-08] MEDS: QUESTRAN 4 GRAM PO (09:14)
[2023-10-08] MEDS: XARELTO 20 MG PO (09:15)
[2023-10-08] MEDS: ASPIR LOW (ENTERIC COATED) 81 MG PO (09:15)
[2023-10-08] MEDS: MAGNESIUM OXIDE 500 MG PO (09:15)
[2023-10-08] MEDS: VITAMIN D3 (cholecalciferol) 125 MCG PO (09:15)
[2023-10-08] MEDS: COREG 12.5 MG PO (09:15)
[2023-10-08] MEDS: AUGMENTIN 875 MG/125 MG 1 TABLET PO (09:15)
--- NOTE | 2023-10-08 09:31 | W.PN.HOSP.TC ---
Addendum entered and electronically signed by Kole Arellano MD 10/08/23 15:46:
E. coli UTI being treated with Augmentin also noted in discharge summary
Original Note:
Today's Communication/Plan
-
Still pending 2D echocardiogram
[facility]
Otherwise stable for discharge to acute rehab
Continue aspiration precautions with present diet tube feedings have been on hold
Assessment / Plan
Assessment / Plan
HPI: 77-year-old male with past medical history significant for CAD status post CABG, aortic stenosis status post aortic valve replacement about 3 years ago, esophageal cancer status post surgical resection and subsequent loss of voice,
paroxysmal atrial fibrillation on anticoagulation, dysphagia, hypertension who presents to the emergency room with acute onset of left-sided weakness.
1. Acute CVA
Patient presented with left leg weakness
MRI confirms acute/subacute infarcts in bilateral cerebral and cerebellar hemispheres/seen by vascular based on CTA findings of a 80% carotid bulb stenosis on the right
-Given presentation of bilateral embolic ischemic infarcts no vascular intervention recommended
This is not a Xarelto failure, as patient had to stop his Xarelto for 5 days for his esophageal surgery
Continue aspirin, statin, Xarelto. Carotid ultrasound 50 to 69% on the right internal carotid and less than 50% on the left and echocardiogram pending today
PT recommends acute rehab, consult physiatry be placed and pending bed assignment
Cleared for regular diet with thin liquids, continue tube feeding boluses 8 ounces BID at 11 AM and 3 PM as well
2. Troponin Elevation
Appreciate cardiology input, patient does not have chest pain
Patient possibly has acute nonischemic myocardial injury in the setting of stroke
Echocardiogram requested
3. pAFIB -
Continue Xarelto and Coreg
4. GERD
- continue ppi
5. Laryngeal dysfunction - Occured since esophageal surgery
- follow up with occupation therapy
6. Bacteriuria
Urine cultures growing out greater than 100,000 colonies of E. coli, pansensitive
We will treat with Augmentin twice a day for 7 days
DVT prophylaxis�Xarelto
Full code
Total time spent to see the patient on the floor, examine the patient, review data and lab results, discuss treatment plan with patient, nursing staff around 51 minutes.
Physical Exam
General: No acute distress
HEENT: Normocephalic, Atraumatic, EOMI, MMM
Hoarse voice noted
Respiratory: Clear to Auscultation bilaterally
Cardiac: Normal S1/S2, Regular Rate and Rhythm
GI: Soft, Nontender, Nondistended, Normal Bowel Sounds
+J tube
Extremities: No Clubbing, Cyanosis, or Edema
Neuro: Left lower extremity weakness noted
Psych: Calm, Cooperative
Derm: No Visible lesions
Anticipated Discharge: Within 24 hours
Subjective/Interval History
-
Date of Service: October 08, 2023
No issues with present modified meal/improving strength right side/no tube feeds in the last 2 days
Objective Data
-
Vital Signs:
Vital Signs
Temp Pulse Resp BP Pulse Ox
97.8 F 64 16 128/60 98
10/08/23 07:15 10/08/23 07:15 10/08/23 07:15 10/08/23 07:15 10/08/23 07:15
I&O
10/07/23 10/08/23 10/09/23
06:59 06:59 06:59
Intake Total 820 / 820 1200 / 1200
Output Total 575 / 575 1150 / 1150
Balance 245 / 245 50 / 50
Review of Systems
-
EENT: Reports No Symptoms Reported
Respiratory: Reports No Symptoms
Cardiac: Reports No Symptoms
Abdomen/GI: Reports No Symptoms
Physical Exam
-
General: No Apparent Distress
HEENT: Normocephalic
Cardiac: Regular Rhythm
GI: Soft and Nontender
Skin: Warm
Neuro: Awake; Negative No Motor Deficits (Right-sided weakness)
Psych: Calm
Data Reviewed
-
Total Time Spent with Patient (in minutes): 45
Labs: Labs Reviewed by me
[2023-10-08] MEDS: ZOFRAN 4 MG IV (10:04)
--- NOTE | 2023-10-08 10:36 | CM ---
CM spoke with Jaswinder, liaison from [facility], able to accept patient today, around 1:00 or 2:00 p.m. Patient seen bedside, discussed plan to discharge to [facility] today. IMM reviewed, signed, placed in chart. CM will continue to follow for discharge
planning needs.
Plan; [facility]
Report: [phone]
[2023-10-08 11:05] VITALS: BP 122/64
--- NOTE | 2023-10-08 12:07 | PN.CDI ---
CDI
- -
CDI:
Physician Documentation Request
Admit Date: 10/05/23 01:39
Dear Doctor Adan,
Please review the following and provide your response in the progress notes.
Clinical Indicators:
Pt admitted with Acute CVA
Documented per progress note 10/06& 10/07, ' Bacteriuria Urine cultures growing out greater than 100,000 colonies of E. coli, pansensitive We will treat with Augmentin twice a day for 7 days.'
Please provide the suspected diagnosis for the treatment of Augmentin :
Ecoli UTI
Ecoli bacteriuria only
Other
Use of terms such as suspected, likely, concern for, or probable (associated with a specific diagnosis that is being evaluated, monitored, or treated as if it exists) are acceptable and can be coded in the inpatient setting, when documented at the
time of discharge.
Thank you,
Marylu Navarro RN
CDI Specialist
[place] text
Please use your independent medical judgment in providing your response.
--- NOTE | 2023-10-08 12:46 | W.DCSUMMARY ---
Discharge Summary
Discharge Data
Date of Admission: 10/05/23
Date of Discharge: 10/08/23
-
Pending Results: No
Hospital Course
77-year-old male past medical history of prior CVA also coronary artery disease aortic stenosis aortic valve replacement and esophageal cancer status postresection with chemotherapy and radiation therapy. Also known history of paroxysmal atrial
fibrillation on Xarelto Xarelto was stopped in preparation for a endoscopic procedure for dilation of his esophageal stricture however he presented to the ED with left-sided weakness involving his leg mostly with CT of the head showing no mass
effect or hemorrhage. A CTA of the head and neck showed bilateral carotid bifurcation atherosclerosis contributing to 80% on the right carotid bulb and 50% on the left and MRI of the brain confirmed acute and subacute infarcts bilaterally to the
cerebral and cerebellar hemispheres. He was seen by neurology and not considered a tPA candidate it was felt that this was not a Xarelto failure and he as he had stopped for 5 days as anticoagulant therapy. Vascular surgery was consulted to review
the results of the carotid studies which were felt to be none interventional as the patient's had bilateral's presentation to the brain. 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 He was
also found to have an E. coli pansensitive UTI and will require 4 more days of amoxicillin clavulanic acid for completion of therapy.
Regarding his dysphagia and esophageal stricture the patient underwent a recent dilation and stenting and speech evaluation with continued aspiration precautions he seems to be tolerating on solids and thin liquids but is also getting bolus J-tube
feedings twice a day at home which were continued in the short-term in the hospital but none presently at time of transfer.
His Xarelto was continued at 20 mg daily he has required magnesium oxide supplementation. He should be continued he is continued on cholestyramine 4 g daily carvedilol 12.5 mg twice daily atorvastatin 80 mg at bedtime for intense statin drug
therapy along with aspirin 81 mg a day he is continued on a bowel regime of Colace and senna and as needed bisacodyl
Was seen by cardiology in relation to a mild elevation in troponin times presentation was not clear whether symptoms or signs prompting blood test at the time with impression being acute nonischemic myocardial injury in setting of stroke
He is still pending a 2D echocardiogram prior to his discharge to [facility] if that is unremarkable stable for discharge
Discharge Plan
-
Patient Disposition: Acute Rehab Facility
Discharge Diagnosis/Procedures: Acute CVA
Left leg weakness
Bilateral acute/subacute infarcts to cerebellar and cerebral
Paroxysmal atrial fibrillation
Laryngeal dysfunction
Chronic dysphagia
Esophageal cancer status postresection
E. coli urinary tract infection
Additional Diets: Jevity tube feedings/bolus 8 ounces twice daily
Referrals:
Haritha Fong PA-C [Specified Professional Personl] - 11/05/23 8:45 am (Vascular follow up- Carotid disease)
UNKNOWN - PT NOT,INTERVIEWE [Family Provider] -
Prescriptions:
New
magnesium oxide 500 mg magnesium Tablet
500 mg PO DAILY Qty: 30 0RF
amoxicillin-pot clavulanate 875-125 mg Tablet
1 tab PO Q12 Qty: 7 0RF
Rx Instructions:
4 more days
Continued
carvedilol 12.5 mg tablet
12.5 mg PO BID
lansoprazole [Prevacid SoluTab] 30 mg tablet,disintegrat, delay rel
30 mg PO DAILY
aspirin 81 mg Tablet,Delayed Release (Dr/Ec)
81 mg PO DAILY
cholecalciferol (vitamin D3) [Vitamin D3] 125 mcg (5,000 unit) Tablet
125 mcg PO DAILY Qty: 0
Xarelto 20 mg Tablet
20 mg PO DAILY
atorvastatin 80 mg tablet
80 mg PO HS
cholestyramine (with sugar) 4 gram powder in packet
1 ea PO DAILY
pantoprazole [address] for susp in packet
40 mg PO DAILY
Discontinued
potassium chloride 20 mEq Packet
20 meq PO DAILY
Discharge Orders:
Discharge Patient (As Directed); Ordered 10/08/23
Ordered By: Kole Arellano
Discharge Date and Time
Print Language: NEPALI
--- NOTE | 2023-10-08 13:10 | W.DS.TRANS ---
DC Summary - [employer] Access Coordinator
-
Discharge Instructions:
Sleep Apnea Risk Intermediate
Discharge Diagnosis/Procedures Acute CVA
Left leg weakness
Bilateral acute/subacute infarcts to cerebellar
and cerebral
Paroxysmal atrial fibrillation
Laryngeal dysfunction
Chronic dysphagia
Esophageal cancer status postresection
E. coli urinary tract infection
Additional Diets Jevity tube feedings/bolus 8 ounces twice daily
Instructions:
Stand-Alone Forms:
Changes to Home Medications: Yes
Discharge Medications:
DC Medications w/original date entered in [facility]
aspirin 81 mg tablet,delayed release 81 mg PO DAILY 08/11/23
atorvastatin 80 mg tablet 80 mg PO HS 08/11/23
cholecalciferol (vitamin D3) 125 mcg (5,000 unit) tablet (Vitamin D3) 125 mcg PO DAILY ##0 08/11/23
rivaroxaban 20 mg tablet (Xarelto) 20 mg PO DAILY 08/11/23
carvedilol 12.5 mg tablet 12.5 mg PO BID 08/30/23
lansoprazole 30 mg delayed release,disintegrating tablet (Prevacid SoluTab) 30 mg PO DAILY 08/30/23
cholestyramine (with sugar) 4 gram powder for susp in a packet 1 ea PO DAILY 10/04/23
pantoprazole 40 mg granules delayed-release for susp in packet 40 mg PO DAILY 10/04/23
amoxicillin 875 mg-potassium clavulanate 125 mg tablet 1 tab PO Q12 Infection #7 tabs 10/08/23
magnesium oxide 500 mg PO DAILY Supplement #30 tabs 10/08/23
Home Medication Changes
pantoprazole 40 mg granules delayed-release for susp in packet 40 mg PO DAILY 10/04/23
amoxicillin 875 mg-potassium clavulanate 125 mg tablet 1 tab PO Q12 Infection #7 tabs 10/08/23
magnesium oxide 500 mg PO DAILY Supplement #30 tabs 10/08/23
Pending Results: No
[2023-10-08 15:05] VITALS: BP 112/56
== END 2023-10-08 15:37 | DRG 65 ==
LOC: 4 WEST ACU 01:39
PROVIDERS: Family Medicine; Nurse Practitioner Family; ADMITTING PHYSICIAN Internal Medicine; ATTENDING PHYSICIAN Internal Medicine; EMERGENCY PHYSICIAN Emergency Medicine; OTHER PHYSICIAN Surgery
DX: I63.443 Cerebral infarction due to embolism of bilateral cerebellar arteries (principal); I5A Non-ischemic myocardial injury (non-traumatic); N39.0 Urinary tract infection, site not specified; I69.351 Hemiplegia and hemiparesis following cerebral infarction affecting right dominant side; R29.702 NIHSS score 2; Z87.891 Personal history of nicotine dependence; I65.23 Occlusion and stenosis of bilateral carotid arteries; I48.0 Paroxysmal atrial fibrillation; Z79.01 Long term (current) use of anticoagulants; K21.9 Gastro-esophageal reflux disease without esophagitis; B96.20 Unspecified Escherichia coli [E. coli] as the cause of diseases classified elsewhere; K22.2 Esophageal obstruction
CPT/HCPCS: 70450; 70496; 70498; 70551; 72156; 80048; 80053; 80061; 81003; 81015; 82962; 83735; 84484; 85025; 85610; 85730; 87077; 87086; 87186; 92523; 92610; 93005; 93306; 93880; 97112; 97116; 97163; 97167; 97530; 99285; A9575; Q9967

== ENCOUNTER → 2023-11-08 12:14 | Outpatient (REF) | payer MEDICARE, OTHER, SELFPAY ==
[2023-11-09 09:56] LABS: Hematocrit 30.5 % (39.0-52.0); Hemoglobin 9.7 g/dL (13.0-18.0); Mean Corp Hgb Conc. 31.8 g/dL (33.0-37.0); Mean Corpuscular Hgb 30.4 pg (27.0-31.0); Mean Corpuscular Volume 95.6 fL (80.0-94.0); Mean Platelet Volume 12.3 fL (7.4-10.4); Red Blood Cell Count 3.19 10^6/uL (4.70-6.10); Red Cell Dist. Width 16.4 % (11.5-14.5); White Blood Cell Count 5.1 10^3/uL (4.8-10.8)
[2023-11-09 09:59] LABS: Platelet Count 48 10^3/uL (130-400)
[2023-11-09 10:00] LABS: Blood Urea Nitrogen 16 mg/dl (9-20); Glucose 138 mg/dl (70-99)
[2023-11-09 10:01] LABS: Calcium 8.5 mg/dl (8.4-10.2); Carbon Dioxide 27 mmol/L (22-30); Chloride 107 mmol/L (98-107); Potassium 4.3 mmol/L (3.5-5.1); Sodium 138 mmol/L (135-145); eGFR > 60.00
== END ==
LOC: OLAB 12:14
PROVIDERS: ATTENDING PHYSICIAN Family Medicine
DX: I48.0 Paroxysmal atrial fibrillation (principal); I25.84 Coronary atherosclerosis due to calcified coronary lesion; D69.6 Thrombocytopenia, unspecified
CPT/HCPCS: 80048; 85027

== ENCOUNTER → 2023-12-03 14:08 | Outpatient (REF) | payer MEDICARE, OTHER, SELFPAY | LOC: RAD 14:08 | PROVIDERS: ATTENDING PHYSICIAN Family Medicine | DX: R60.0 Localized edema (principal); Z95.1 Presence of aortocoronary bypass graft; Z95.2 Presence of prosthetic heart valve; I10 Essential (primary) hypertension | CPT/HCPCS: 71046 ==

== ENCOUNTER → 2023-12-05 09:38 | Outpatient (REF) | payer MEDICARE, OTHER, SELFPAY ==
[2023-12-05 10:52] LABS: % Basophils 1.1 % (0-2); % Eosinophils 1.8 % (0-6); % Immature Granulocytes 0.4 % (0-0.5); % Lymphocytes 15.1 % (20.5-51.1); % Monocytes 10.7 % (1.7-9.3); % Neutrophils 70.9 % (42.2-75.2); Absolute Basophils 0.1 10^3/uL (0-0.2); Absolute Eosinophils 0.1 10^3/uL (0-0.7); Absolute Lymphocytes 0.7 10^3/uL (1.2-3.4); Absolute Monocytes 0.5 10^3/uL (0.1-0.6); Absolute Neutrophils 3.2 10^3/uL (1.4-6.5); Hematocrit 30.5 % (39.0-52.0); Hemoglobin 10.1 g/dL (13.0-18.0); Mean Corp Hgb Conc. 33.1 g/dL (33.0-37.0); Mean Corpuscular Hgb 30.9 pg (27.0-31.0); Mean Corpuscular Volume 93.3 fL (80.0-94.0); Mean Platelet Volume 12.1 fL (7.4-10.4); Nucleated Red Blood Cells % 0 % (-); Platelet Count 70 10^3/uL (130-400); Red Blood Cell Count 3.27 10^6/uL (4.70-6.10); Red Cell Dist. Width 15.1 % (11.5-14.5); White Blood Cell Count 4.5 10^3/uL (4.8-10.8)
[2023-12-05 11:22] LABS: ALT (SGPT) 23 U/L (0-50); AST (SGOT) 30 U/L (17-59); Albumin 2.9 g/dl (3.5-5.0); Alkaline Phosphatase 107 U/L (38-126); Blood Urea Nitrogen 17 mg/dl (9-20); Calcium 8.6 mg/dl (8.4-10.2); Carbon Dioxide 32 mmol/L (22-30); Chloride 102 mmol/L (98-107); Glucose 84 mg/dl (70-99); Potassium 4.6 mmol/L (3.5-5.1); Sodium 138 mmol/L (135-145); Total Bilirubin 0.9 mg/dl (0.2-1.3); Total Protein 5.6 g/dl (6.3-8.2); eGFR > 60.00
[2023-12-05 11:30] LABS: NT-proBNP 1900 pg/ml
[2023-12-05 11:52] LABS: PSA, Total - Screen 1.25 ng/ml (0.0-4.0)
== END ==
LOC: REG 09:38
PROVIDERS: ATTENDING PHYSICIAN Family Medicine
DX: R60.0 Localized edema (principal); Z95.1 Presence of aortocoronary bypass graft; Z95.2 Presence of prosthetic heart valve; I10 Essential (primary) hypertension; Z12.5 Encounter for screening for malignant neoplasm of prostate
CPT/HCPCS: 36415; 80053; 83880; 85025; G0103

== ENCOUNTER → 2023-12-21 11:08 | Outpatient (REF) | payer MEDICARE, OTHER, SELFPAY | LOC: RCS 11:08 | PROVIDERS: ATTENDING PHYSICIAN Family Medicine | DX: Z95.1 Presence of aortocoronary bypass graft (principal); Z95.2 Presence of prosthetic heart valve; I10 Essential (primary) hypertension | CPT/HCPCS: 93306 ==

== ENCOUNTER 2024-01-02 15:24 | Emergency (ER) | payer MEDICARE, OTHER, SELFPAY ==
[2024-01-02] VITALS (21 sets, daily range): BP systolic 92–134; BP diastolic 57–92; BMI 22.0
--- NOTE | 2024-01-02 16:27 | ED.GENMED ---
History of Present Illness
<Jasper Austin MD - Last Filed: 01/02/24 20:38>
General
Chief Complaint: Weakness
Time Seen by Provider: 01/02/24 15:50
<George Bagley Jr., PA-C - Last Filed: 01/03/24 07:30>
General
Source: patient and family
Exam Limitations: none
Nursing documentation reviewed up to this point in time: agreed with
History of Present Illness
History of Present Illness:
78-year-old male with past medical history of A-fib currently on Xarelto, CAD, hypertension, previous stroke, recent UTI presenting to the emergency department today with concerns of 1 week of increasing generalized weakness fatigue lightheadedness.
Also is having nausea felt he was going to pass out earlier today recently diagnosed with UTI took antibiotics for a week. Symptoms initially improving but then worsening today. Denies specific chest pain shortness of breath vomiting or fevers.
Past History
<Jasper Austin MD - Last Filed: 01/02/24 20:38>
Past History
ED Past Medical History: Arrthythmia (PAF), Cancer (Esophageal adenocarcinoma), CVA (2008-no residual deficits; bihemispheric 2023), HTN, Hypercholesterolemia, NIDDM (Prediabetic), Valvular disease (Aortic stenosis/aortic valve replacement) and
Other (Esophageal stricture)
ED Past Surgical History: Cardiac (Aortic valve replacement/CABG , 2020), Orthopedic (Right total hip replacement 2017) and Other (Esophagectomy November 2022. Multiple endoscopies for esophageal stricture with esophageal stent placement; PEG tube in
place; bilateral cataract extractions; bilateral herniorrhaphies)
Social History
Tobacco: Non-smoker
Alcohol: None
Personal:
Living: with family
Employment: Retired
Family History
Family History: Other (Reviewed and noncontributory)
Review of Systems
<George Bagley Jr., PA-C - Last Filed: 01/03/24 07:30>
Review of Systems
Allergies reviewed?: Yes
All Other Systems: ROS reviewed and negative except as documented in HPI and ROS
Phy Exam
<George Bagley Jr., PA-C - Last Filed: 01/03/24 07:30>
Physical Exam
Physical Exam:
GENERAL: Alert , in no apparent distress
EYE: pupils equal and reactive
NECK: Supple, no significant adenopathy.
ENT: o/p clr, mmm.
CARDIAC: Tachycardic but regular
LUNGS: Clear breath sounds bilaterally, no acute respiratory distress, no wheezes/rales/rhonchi
ABDOMEN: Soft, without focal tenderness, no r/g, no cvat
NEUROLOGICAL: Alert and oriented, no focal neuro deficits
SKIN: Warm and dry, skin intact.
MUSCULOSKELETAL: No edema, well perfused.
PSYCH: Normal and appropriate interaction.
Course
<Jasper Austin MD - Last Filed: 01/02/24 20:38>
Orders/Labs/Results
Orders:
Orders
01/02/24 15:34
Electrocardiogram (*1) Urgent
Reason for Study: Tachycardia
EKG- Treatment ONCE
01/02/24 15:56
CMP [Comprehensive Metabolic Panel] Urgent
Complete Blood Count/With Diff Urgent
Free T4 Urgent
Comment: ADD ON
TSH Urgent
Comment: ADD ON
01/02/24 16:12
Add On- LAB Urgent
Tests Added?: tsh free t4
0.9% Sodium Chloride 500 ml [Nss] 500 ml IV BOLUS
01/02/24 16:16
Metoprolol [Lopressor] 5 mg IV NOW STA
01/02/24 16:35
Potassium Chloride [KCl] 20 meq PO NOW STA
01/02/24 16:50
COVID-19 Antigen Urgent
Source: Nasal Swab
Lactic Acid Urgent
01/02/24 17:03
Diltiazem 125 mg/125 ml Nss [Cardizem] 125 mg in 125 ml IV NOW
Initial dose in mg/hr, then titrate:: 5
Titrate to keep:: Heart rate 80-100 bpm
Titrate by mg/hr:: 5 mg/hr
Frequency of titrations (minutes):: 15
Maximum dose in mg/hr:: 15
01/02/24 17:40
Propofol [Diprivan] 20 ml .ROUTE .STK-MED
01/02/24 18:08
0.9% Sodium Chloride 500 ml [Nss] 500 ml IV BOLUS
01/02/24 18:12
Propofol [Diprivan] 40 mg IV NOW STA
01/02/24 18:14
EKG [Electrocardiogram (*1)] Urgent
Reason for Study: Other
Other Reason for Exam: cardioversion
01/02/24 18:15
EKG- Treatment ONCE
01/02/24 18:24
BMP [Basic Metabolic Panel] Urgent
01/03/24
Electrocardiogram (*1) Stat
Reason for Study: Chest Pain
Abnormal Lab Results
01/02/24 01/02/24
15:56 18:24
RBC 3.30 L 10^6/uL
(4.70-6.10)
Hgb 9.7 L g/dL
(13.0-18.0)
Hct 29.9 L %
(39.0-52.0)
MCHC 32.4 L g/dL
(33.0-37.0)
RDW 14.9 H %
(11.5-14.5)
Plt Count 95 L 10^3/uL
(130-400)
MPV 11.2 H fL
(7.4-10.4)
Absolute Lymphs (auto) 0.5 L 10^3/uL
(1.2-3.4)
Absolute Monos (auto) 0.7 H 10^3/uL
(0.1-0.6)
Immature Gran % 0.6 H %
(0-0.5)
Neutrophils % 80.5 H %
(42.2-75.2)
Lymphocytes % 7.6 L %
(20.5-51.1)
Monocytes % 10.5 H %
(1.7-9.3)
Sodium 132 L mmol/L 131 L mmol/L
(135-145) (135-145)
Potassium 3.3 L mmol/L 3.1 L mmol/L
(3.5-5.1) (3.5-5.1)
BUN 36 H mg/dl 34 H mg/dl
(9-20) (9-20)
Creatinine 1.4 H mg/dL 1.4 H mg/dL
(0.7-1.3) (0.7-1.3)
Glucose 104 H mg/dl
(70-99)
Calcium 8.0 L mg/dl 7.7 L mg/dl
(8.4-10.2) (8.4-10.2)
Total Protein 5.3 L g/dl
(6.3-8.2)
Albumin 2.6 L g/dl
(3.5-5.0)
01/02/24 15:56
01/02/24 18:24
Vital Signs
Initial and Last Documented VS:
Initial Vital Signs
Temp Pulse Resp BP Pulse Ox
97.5 F 133 23 102/73 100
01/02/24 15:28 01/02/24 15:28 01/02/24 15:28 01/02/24 15:28 01/02/24 15:28
Last Documented Vital Signs
Temp Pulse Resp BP Pulse Ox
98.0 F 95 34 134/83 96
01/02/24 19:14 01/02/24 20:30 01/02/24 20:30 01/02/24 20:30 01/02/24 20:28
<George Bagley Jr., PA-Holly - Last Filed: 01/03/24 07:30>
Orders/Labs/Results
Orders:
Orders
01/02/24 15:34
Electrocardiogram (*1) Urgent
Reason for Study: Tachycardia
EKG- Treatment ONCE
01/02/24 15:56
CMP [Comprehensive Metabolic Panel] Urgent
Complete Blood Count/With Diff Urgent
Free T4 Urgent
Comment: ADD ON
TSH Urgent
Comment: ADD ON
01/02/24 16:12
Add On- LAB Urgent
Tests Added?: tsh free t4
0.9% Sodium Chloride 500 ml [Nss] 500 ml IV BOLUS
01/02/24 16:16
Metoprolol [Lopressor] 5 mg IV NOW STA
01/02/24 16:35
Potassium Chloride [KCl] 20 meq PO NOW STA
01/02/24 16:50
COVID-19 Antigen Urgent
Source: Nasal Swab
Lactic Acid Urgent
01/02/24 17:03
Diltiazem 125 mg/125 ml Nss [Cardizem] 125 mg in 125 ml IV NOW
Initial dose in mg/hr, then titrate:: 5
Titrate to keep:: Heart rate 80-100 bpm
Titrate by mg/hr:: 5 mg/hr
Frequency of titrations (minutes):: 15
Maximum dose in mg/hr:: 15
01/02/24 17:40
Propofol [Diprivan] 20 ml .ROUTE .STK-MED
01/02/24 18:08
0.9% Sodium Chloride 500 ml [Nss] 500 ml IV BOLUS
01/02/24 18:12
Propofol [Diprivan] 40 mg IV NOW STA
01/02/24 18:14
EKG [Electrocardiogram (*1)] Urgent
Reason for Study: Other
Other Reason for Exam: cardioversion
01/02/24 18:15
EKG- Treatment ONCE
01/02/24 18:24
BMP [Basic Metabolic Panel] Urgent
01/03/24
Electrocardiogram (*1) Stat
Reason for Study: Chest Pain
Abnormal Lab Results
01/02/24 01/02/24
15:56 18:24
RBC 3.30 L 10^6/uL
(4.70-6.10)
Hgb 9.7 L g/dL
(13.0-18.0)
Hct 29.9 L %
(39.0-52.0)
MCHC 32.4 L g/dL
(33.0-37.0)
RDW 14.9 H %
(11.5-14.5)
Plt Count 95 L 10^3/uL
(130-400)
MPV 11.2 H fL
(7.4-10.4)
Absolute Lymphs (auto) 0.5 L 10^3/uL
(1.2-3.4)
Absolute Monos (auto) 0.7 H 10^3/uL
(0.1-0.6)
Immature Gran % 0.6 H %
(0-0.5)
Neutrophils % 80.5 H %
(42.2-75.2)
Lymphocytes % 7.6 L %
(20.5-51.1)
Monocytes % 10.5 H %
(1.7-9.3)
Sodium 132 L mmol/L 131 L mmol/L
(135-145) (135-145)
Potassium 3.3 L mmol/L 3.1 L mmol/L
(3.5-5.1) (3.5-5.1)
BUN 36 H mg/dl 34 H mg/dl
(9-20) (9-20)
Creatinine 1.4 H mg/dL 1.4 H mg/dL
(0.7-1.3) (0.7-1.3)
Glucose 104 H mg/dl
(70-99)
Calcium 8.0 L mg/dl 7.7 L mg/dl
(8.4-10.2) (8.4-10.2)
Total Protein 5.3 L g/dl
(6.3-8.2)
Albumin 2.6 L g/dl
(3.5-5.0)
01/02/24 15:56
01/02/24 18:24
Vital Signs
Initial and Last Documented VS:
Initial Vital Signs
Temp Pulse Resp BP Pulse Ox
97.5 F 133 23 102/73 100
01/02/24 15:28 01/02/24 15:28 01/02/24 15:28 01/02/24 15:28 01/02/24 15:28
Last Documented Vital Signs
Temp Pulse Resp BP Pulse Ox
98.0 F 95 34 134/83 96
01/02/24 19:14 01/02/24 20:30 01/02/24 20:30 01/02/24 20:30 01/02/24 20:28
Procedures
<Jasper Austin MD - Last Filed: 01/02/24 20:38>
Cardioversion
Indication:: Afib
Performed by:: Jasper Austin MD
Synchronized?: Yes
Energy Used: 200 joules
Number of attempts: 1
Successful?: Yes
Complications: none
ASA Risk Score: Class III
Any reaction or bad outcome to prior sedation/anesthesia?: No history of a reaction
Sedation level to be attained: moderate
Chart and allergies reviewed: Yes
Patient reassessed prior to sedation: Yes
Time out completed at (validating right patient & procedure): 18:12
History of difficult intubation: No
Airway free of obstruction: Yes
Patient has a gag reflex: Yes
Patient is able to open mouth: Yes
Patient has no dentures: Yes
Patient has no loose teeth: Yes
Medication administered by Provider during Moderate Sedation: IV Propofol (mg)
Total dose administered: 40
Time drug administered: 18:12
Start Time: 18:12
Stop Time: 18:22
<George Bagley Jr., PA-C - Last Filed: 01/03/24 07:30>
MDM/Problems Addressed
MDM/Problems Addressed:
78-year-old male presenting to the emergency department today with concerns of increased weakness fatigue lightheadedness worsening over the past week but specifically worsened today. Previously was having some improvement of symptoms after being
treated for UTI 1 week ago but worsening symptoms today. Upon arrival tachycardic to the 130s blood pressure in the low 100s systolic normal pulse ox patient no distress no abdominal pain no chest pain labs showing elevated creatinine from baseline
patient was given fluids. Otherwise concerning patient in a flutter plan to cardiovert. Cardioversion successful patient with further monitoring with attending physician with plans for reassessment.
<George Bagley Jr., PA-C - Last Filed: 01/03/24 07:30>
*Critical Care Note
Total Time (30-74mins, 75-104mins- exclusive of procedures): Not Applicable
ED Attending Note
<Jasper Austin MD - Last Filed: 01/02/24 20:38>
ED Attending Note
Patient seen and examined by attending physician: Yes
ED Attending Note:
I have seen and evaluated the patient with a [id number] encounter. I have spoken to the advance practicer provider and involved in the medical history, the physical exam, medical decision making.
Evaluation and management service: agree unless noted differently below.
Results interpretation: agree unless noted differently below.
Focused HPI: 78-year-old male with past medical history as documented notable for paroxysmal A-fib who presents to the emergency department for evaluation of fatigue and lightheadedness. Patient reports that last week he was having urinary
frequency and generalized weakness and saw his PCP who started him on antibiotic course for UTI which patient completed. Patient says that over the past 2 days he had been feeling bit better but today was feeling significant generalized weakness
once again and started to have some lightheadedness particularly with positional changes. He called EMS to bring him to the hospital for evaluation. He denies any chest pain or shortness of breath. He denies any palpitations. He denies any
headache. He denies any URI symptoms. He denies any abdominal pain, nausea, vomiting, diarrhea. He denies any dysuria or flank pain. He denies any other complaints. On arrival patient found to be tachycardic likely A-fib/flutter on the EKG.
Patient reports that he is on Xarelto for anticoagulation and compliant including taking a dose this morning.
Physical exam: Awake and alert, oriented x 3. Tachycardic with otherwise normal vitals. Lungs clear to auscultation bilaterally. Abdomen soft nontender to deep palpation. No edema in the extremities. Good pulses all extremities. No gross
neurologic deficits.
Medical Decision Makin-year-old male presents for evaluation of generalized weakness and dizziness that started today in the setting of recent treatment for a UTI as an outpatient. Vitals significant for tachycardia�EKG appears to be
consistent with atrial fibs/flutter. Will plan to place an IV check labs including a CBC and a CMP. Will check urinalysis. Monitor on telemetry. Suspect likely symptomatic atrial fibrillation�patient is a reasonable candidate for ED
cardioversion, will discuss with patient pending initial labs.
Patient agreeable cardioversion�will proceed with procedure.
Patient successfully cardioverted as documented procedure note. He is completely asymptomatic after cardioversion. Will monitor post sedation.
Patient completely awake after sedation. He was able to get up and ambulate with his walker has no feeling of weakness or dizziness any longer. I had a long discussion with patient and his family. He feels well enough for discharge�no clear
indication for admission to the hospital at this point with symptoms resolved and vitals normal. I did go over his lab work with him including discussing his low potassium (supplemented with p.o. potassium here, he is already on a potassium
supplement at home). We also discussed his FAHAD and elevated creatinine. Advised to ensure he is drinking plenty of fluids at home and to follow-up with his doctor within the next week for repeat blood work. Patient and feel comfortable with
this plan. All questions answered.
-
Portions of this chart may have been created with voice recognition software.� Occasional wrong word or��sound alike� substitutions may have occurred due to the inherent limitations of voice recognition software.
Discharge Plan
Departure
Patient Disposition: Home (Routine Discharge)
Date of Disposition: 01/02/24
Time of Disposition: 20:35
Patient with high blood pressure during this ER visit?: No
Discharge Problem:
Atrial fibrillation status post cardioversion, FAHAD (acute kidney injury), Hypokalemia
Instructions: Atrial Fibrillation and Atrial Flutter ED, High-potassium diet, Serum creatinine test, MODERATE SEDATION ADULT
Prescriptions:
No Action
aspirin 81 mg Tablet,Delayed Release (Dr/Ec)
81 mg PO DAILY
atorvastatin 80 mg tablet
80 mg PO HS
cholestyramine (with sugar) 4 gram powder in packet
1 ea PO DAILY
Rx Instructions:
Pt prefers in orange juice
tamsulosin 0.4 mg Capsule
0.4 mg PO HS
furosemide [Lasix] 20 mg Tablet
20 mg PO DAILY
potassium chloride 20 mEq tablet,ER particles/crystals
20 meq PO DAILY@1999
carvedilol 6.25 mg Tablet
6.25 mg PO BID 30 Days Qty: 60 0RF
cyanocobalamin (vitamin B-12) 1,000 mcg Tablet
1,000 mcg PO DAILY 30 Days Qty: 30 0RF
Xarelto 20 mg Tablet
20 mg PO DAILY 30 Days Qty: 30 0RF
ondansetron 4 mg Tablet,Disintegrating
4 mg PO Q8HPRN PRN (Reason: nausea) 10 Days Qty: 30 0RF
lansoprazole [Prevacid SoluTab] 30 mg tablet,disintegrat, delay rel
30 mg PO DAILY 30 Days Qty: 30 0RF
pantoprazole [address] for susp in packet
40 mg PO DAILY 30 Days Qty: 30 0RF
Rx Instructions:
@ 6:30 AM
cholecalciferol (vitamin D3) [Vitamin D3] 125 mcg (5,000 unit) Tablet
125 mcg PO DAILY Qty: 0 0RF
Referrals:
UNKNOWN - PT DOES,NOT KNOW [Family Provider] -
Activity Restrictions/Additional Instructions:
You were seen in the emergency room for weakness and dizziness. You were found to be in atrial fibrillation/flutter with an elevated heart rate. You were cardioverted (shocked) back to a normal rhythm here and was feeling much better. On your
blood work today you were found to have a low potassium level�you were given some extra potassium by mouth here. You were also found to have an elevated creatinine level. You should make sure to have your blood work repeated within the next
week�you should call your primary doctor to schedule a follow-up appointment and to have repeat blood work. You should also call your licensed practical nurse clinic nurse to schedule an appointment after requiring cardioversion for atrial fibrillation. You should
continue to take your Xarelto as prescribed�it is very important that you are compliant with this medication particularly after cardioversion.
Thank you for visiting the Emergency Department at [facility].
1. Please schedule a follow up appointment as directed. Call first thing tomorrow morning to make an appointment.
2. If indicated, please take your medications as instructed and indicated on discharge paperwork.
3. If any of your symptoms do not improve, or persist, or become more severe within 6-12 hours, please return to the emergency department for further care.
4. Please return to the emergency department if you develop a headache, neck pain/stiffness, fever greater than 100.4F, chest pain, shortness of breath, persistent nausea, vomiting, slurred speech, difficulty walking, numbness/tingling, weakness,
signs of infection or any other symptoms that are worrisome to you.
Please call [phone] if you have any questions.
Interventions
Interventions:
*Risk Screen - Suicide Last Done: 01/02/24 15:28
*General Assessment Last Done: 01/02/24 15:28
*Neglect/Abuse Screening Last Done: 01/02/24 15:28
ED- Fall Risk Assessment Last Done: 01/02/24 15:28
*ED COVID-19 Vaccine History Last Done: 01/02/24 15:28
*Nursing Disposition Last Done: 01/02/24 20:45
ED- Cardiac Assessment Last Done: 01/02/24 19:29
ED- Neurological Assessment Last Done: 01/02/24 19:29
ED- Pulmonary Assessment Last Done: 01/02/24 19:29
Discharge Date and Time
Discharge Date/Time: 01/02/24 20:50
Print Language: [place]
[2024-01-02 16:33] LABS: ALT (SGPT) 23 U/L (0-50); AST (SGOT) 46 U/L (17-59); Albumin 2.6 g/dl (3.5-5.0); Alkaline Phosphatase 98 U/L (38-126); Blood Urea Nitrogen 36 mg/dl (9-20); Carbon Dioxide 30 mmol/L (22-30); Chloride 100 mmol/L (98-107); Estimated Creatinine Clearance 47 ml/min; Glucose 93 mg/dl (70-99); Potassium 3.3 mmol/L (3.5-5.1); Sodium 132 mmol/L (135-145); Total Bilirubin 0.7 mg/dl (0.2-1.3); Total Protein 5.3 g/dl (6.3-8.2); eGFR 51.77
[2024-01-02] MEDS: KCL 20 MEQ PO (16:51)
[2024-01-02] MEDS: NSS 500 IV ×2 (16:51→18:09)
[2024-01-02 16:55] LABS: Free T4 1.38 ng/dl (0.78-2.19)
[2024-01-02 17:02] LABS: TSH 3.09 uIU/ml (0.47-4.68)
[2024-01-02 17:20] LABS: Lactic Acid 1.4 mmol/L (0.7-2.0)
[2024-01-02 17:24] LABS: % Basophils 0.4 % (0-2); % Eosinophils 0.4 % (0-6); % Immature Granulocytes 0.6 % (0-0.5); % Lymphocytes 7.6 % (20.5-51.1); % Monocytes 10.5 % (1.7-9.3); % Neutrophils 80.5 % (42.2-75.2); Absolute Lymphocytes 0.5 10^3/uL (1.2-3.4); Absolute Monocytes 0.7 10^3/uL (0.1-0.6); Absolute Neutrophils 5.5 10^3/uL (1.4-6.5); Hematocrit 29.9 % (39.0-52.0); Hemoglobin 9.7 g/dL (13.0-18.0); Mean Corp Hgb Conc. 32.4 g/dL (33.0-37.0); Mean Corpuscular Hgb 29.4 pg (27.0-31.0); Mean Corpuscular Volume 90.6 fL (80.0-94.0); Mean Platelet Volume 11.2 fL (7.4-10.4); Nucleated Red Blood Cells % 0 % (-); Platelet Count 95 10^3/uL (130-400); Red Cell Dist. Width 14.9 % (11.5-14.5); White Blood Cell Count 6.9 10^3/uL (4.8-10.8)
[2024-01-02 17:25] LABS: COVID-19 Antigen Negative (Negative)
[2024-01-02] MEDS: DIPRIVAN 40 MG IV (18:12)
[2024-01-02 18:52] LABS: Blood Urea Nitrogen 34 mg/dl (9-20); Calcium 7.7 mg/dl (8.4-10.2); Carbon Dioxide 30 mmol/L (22-30); Chloride 100 mmol/L (98-107); Estimated Creatinine Clearance 47 ml/min; Glucose 104 mg/dl (70-99); Potassium 3.1 mmol/L (3.5-5.1); Sodium 131 mmol/L (135-145); eGFR 51.77
== END 2024-01-02 20:50 | disposition home or self-care (01) ==
LOC: EMR 15:24
PROVIDERS: Emergency Medicine; Physician Assistant; EMERGENCY PHYSICIAN Emergency Medicine
DX: I48.91 Unspecified atrial fibrillation (principal); N17.9 Acute kidney failure, unspecified; E87.6 Hypokalemia; I25.10 Atherosclerotic heart disease of native coronary artery without angina pectoris; I10 Essential (primary) hypertension; E78.00 Pure hypercholesterolemia, unspecified; Z79.01 Long term (current) use of anticoagulants; Z85.01 Personal history of malignant neoplasm of esophagus; Z86.73 Personal history of transient ischemic attack (TIA), and cerebral infarction without residual deficits; Z87.440 Personal history of urinary (tract) infections; Z90.49 Acquired absence of other specified parts of digestive tract; Z93.1 Gastrostomy status; Z95.1 Presence of aortocoronary bypass graft; Z95.2 Presence of prosthetic heart valve
CPT/HCPCS: 99284; 92960; 80048; 80053; 83605; 84439; 84443; 85025; 87811; 93005